=== PATIENT | female | born 1940 | race Caucasian/White ===

== ENCOUNTER 2020-02-17 10:39 | Outpatient (REF) | payer MEDICARE, SELFPAY ==
--- NOTE | 2020-02-17 10:56 | MM_ITS ---
EXAMINATION: MM SCREENING DIGITAL BREAST TOMOSYNTHESIS, BILATERAL CLINICAL INFORMATION: Screening. Asymptomatic. The lifetime risk of breast cancer based on the Tyrer-Cuzick Model is 1%. COMPARISON: Mammography: 02/11/2019, 12/19/2017, 12/09/2016 TECHNIQUE: Digital breast tomosynthesis is performed in both the craniocaudal and mediolateral oblique views along with computer-aided detection (CAD). Synthesized 2D images are generated from the tomosynthesis. FINDINGS: The breasts are heterogeneously dense, which may obscure small masses (ACR BI-RADS breast composition Category c). There are no significant masses, abnormal calcifications, or other abnormalities. The axilla and skin contours are unremarkable. No significant changes. MM/MM tomosynthesis screening BI IMPRESSION: No mammographic evidence of malignancy. ASSESSMENT: BI-RADS 1: Negative RECOMMENDATION: Routine annual mammography screening. This patient's information was entered into a reminder system with a target due date for their next mammogram.
== END 2020-02-17 10:40 | disposition home or self-care (01) ==
LOC: HO.MAMMO 10:39
PROVIDERS: PCP Internal Medicine; Visit Provider Internal Medicine
DX: Z12.31 Encounter for screening mammogram for malignant neoplasm of breast (principal)
CPT/HCPCS: 77063; 77067

== ENCOUNTER 2020-10-13 07:11 | Outpatient (REF) | payer MEDICARE, SELFPAY ==
[2020-10-13 11:34] LABS: MANUAL DIFF FLAG NO
[2020-10-13 11:49] LABS: Basophils Absolute Auto 0.1 X10*3/uL (0.0-0.2); Basophils Percent Auto 0.7 % (0-2); Eosinophils Absolute Auto 0.1 X10*3/uL (0.0-0.4); Eosinophils Percent Auto 1.2 % (0-4); Hematocrit 44.9 % (37-47); Hemoglobin 14.4 g/dl (12.0-16.0); Imm Gran Abs Auto 0.02 X10*3/uL (0.00-0.03); Imm Gran Pct Auto 0.3 % (0.0-0.4); Lymphocytes Absolute Auto 2.4 X10*3/uL (1.2-4.9); Lymphocytes Percent Auto 34.6 % (20-40); Mean Corpuscular HGB Conc 32.1 g/dl (31.0-35.0); Mean Corpuscular Hemoglobin 29.5 pg (27.0-33.0); Mean Platelet Volume 10.4 fL (9.4-12.3); Monocytes Absolute Auto 0.5 X10*3/uL (0.1-1.2); Monocytes Percent Auto 7.3 % (2-11); Neutrophils Absolute Auto 3.8 X10*3/uL (2.0-8.3); Neutrophils Percent Auto 55.9 % (45-73); Platelet Count 225 X10*3/uL (160-400); Red Blood Count 4.88 X10*6/uL (4.20-5.50); Red Cell Distribution Width 13.6 % (11.0-16.0); White Blood Count 6.9 X10*3/uL (4.8-10.8)
[2020-10-13 12:35] LABS: Thyroid Stimulating Hormone 2.88 uIU/mL (0.32-4.0); Vitamin D 25-OH Total 57.6 ng/mL (>30)
[2020-10-13 12:36] LABS: Alanine Aminotransferase 10 U/L (0-31); Albumin Level 4.1 g/dL (3.5-5.0); Alkaline Phosphatase 83 U/L (39-117); Anion Gap 13 (12-20); Aspartate Amino Transferase 18 U/L (5-31); Bilirubin Total 0.7 mg/dL (0.0-1.0); Blood Urea Nitrogen 15 mg/dL (9-16); Calcium 9.2 mg/dL (8.4-10.2); Carbon Dioxide 29 mmol/L (22-29); Chloride 107 mmol/L (96-108); Cholesterol 169 mg/dL; Estimated Glomerular Filt Rate > 60; Glucose Fasting 89 mg/dL (60-99); HDL Cholesterol 64 mg/dL; LDL Cholesterol Calculated 92 mg/dl; Potassium 3.7 mmol/L (3.3-5.1); Sodium 145 mmol/L (135-145); Total Protein 6.4 g/dL (6.5-8.0); Triglycerides 69 mg/dL
== END 2020-10-13 07:12 | disposition home or self-care (01) ==
LOC: HO.HMGCLDS 07:11
PROVIDERS: PCP Internal Medicine; Visit Provider Internal Medicine
DX: I10 Essential (primary) hypertension (principal); E78.00 Pure hypercholesterolemia, unspecified; R35.1 Nocturia; E55.9 Vitamin D deficiency, unspecified
CPT/HCPCS: 36415; 80053; 80061; 82306; 84443; 85025; 87086; 87088

== ENCOUNTER 2020-11-09 10:43 | Outpatient (REF) | payer MEDICARE, SELFPAY ==
--- NOTE | 2020-11-09 12:40 | MHC.AU.AEV ---
Adult Audiological Evaluation Date of Visit: 11/09/20 Reason for Appointment: Patient's family members have been raising concerns about her hearing. She finds that she asks for repetition more frequently than she used to. She feels she hears well if she is one-on-one in a quiet setting. She notices more difficulty if people are behind her, on the other side of the room, or if there is excessive noise in the background. Has hearing been tested previously?: No Hearing Handicap Inventory Does a hearing problem cause you to feel embarrassed when meeting new people?: No Does a hearing problem cause you to feel frustrated when talking to members of your family?: No Do you have difficulty when someone speaks in a whisper?: Yes Do you feel handicapped by a hearing problem?: No Does a hearing problem cause you difficulty when visiting friends, relatives, or neighbors?: No Does a hearing problem cause you to attend restorationist service services less often than you would like?: No Does a hearing problem cause you to have arguments with family members?: No Does a hearing problem cause you difficulty when listening to TV or radio?: No Do you feel that any difficult with your hearing limits or hampers your personal or social life?: No Does a hearing problem cause you difficulty when in a restaurants with relatives or friends?: No HHIE SCORE: 4 Based on HHIE score, patient has: No perceived hearing handicap Ear History: Ear Deformity: None Reported Recent Ear Drainage: None Reported Recent Ear Pain: None Reported Family History of Hearing Loss?: Yes Recent Ear Infections: None Reported Ear Infections in Childhood: None Reported History of Ear Wax Buildup: None Reported Previous Ear Surgery: None Reported Bothersome Tinnitus/Ringing/Noises in Ears: None Reported Ear used on the phone: Left Ear Blocked/Full Sensation in Ear(s): None Reported History of occupational noise exposure?: No History: No Medical History: Medical History: COPD, Hypertension, Tobacco Use Otoscopy: Right Ear: Unremarkable Left Ear: Unremarkable Tympanometry: Tympanometry performed due to: To assess integrity of the middle ear system Right Ear: Normal Middle Ear System (Type A) Left Ear: Normal Middle Ear System (Type A) Hearing Evaluation: Transducer(s) Used: Circumaural Headphones Method: Conventional Audiometry Stimuli Used: Pure Tones Right Ear: Description of Hearing: Normal from 250-1500 Hz, sloping to moderately-severe sensorineural hearing loss by 8000 Hz Left Ear: Description of Hearing: Normal from 250-1500 Hz, sloping to moderately-severe sensorineural hearing loss by 8000 Hz Speech Recognition Threshold (SRT): Method Used: Recorded Lists Stimuli Used: Spondee Words Right Ear: 20 dBHL Left Ear: 20 dBHL Word Discrimination: Method: Recorded Lists Word Lists Used:: W-22 Right Ear: 88% at 60 dBHL Left Ear: 92% at 60 dBHL Most Comfortable Level (MCL): Right Ear: 60 dBHL Left Ear: 60 dBHL Interpretation of Results: Patient presents with normal sloping to moderately-severe sensorineural hearing loss. In quiet, one-on-one settings, occasional misunderstandings may occur, but she is likely able to follow along in conversation without much difficulty. If the person talking was behind/out of line of sight or if there was noise in the background, the hearing difficulty may be more prominent. Sounds that may be more difficult to hear include /s/, /th/, /f/, and /k/. Recommendations: Audiological re-evaluation in one year. Hearing aids are not yet warranted. Patient feels she is able to hear well in most situations. To help support the patient's hearing: -Speak in a clear voice at a moderate pace. It is often more helpful to slow down the rate of speech rather than raising the volume of your voice. -Talk from a close distance and [id number] -Gain her full attention before talking -Minimize background noise whenever possible Diagnosis: Primary Diagnosis: H90.3 Bilateral Sensorineural Hearing Loss Signature: Provider: Louis Long, [facility]
== END 2020-11-09 10:44 | disposition home or self-care (01) ==
LOC: HO.SH 10:43
PROVIDERS: Visit Provider Internal Medicine
DX: H90.3 Sensorineural hearing loss, bilateral (principal)
CPT/HCPCS: 92557; 92567

== ENCOUNTER 2021-03-11 15:43 | Outpatient (REF) | payer MEDICARE, SELFPAY ==
--- NOTE | ~2021-03-11 | MM_ITS ---
EXAMINATION: MM SCREENING DIGITAL BREAST TOMOSYNTHESIS, BILATERAL CLINICAL INFORMATION: Screening. Asymptomatic. The lifetime risk of breast cancer based on the Tyrer-Cuzick Model is 1.1%. COMPARISON: Mammography: February 17, 2020 and studies dating back to November 25, 2013 TECHNIQUE: Digital breast tomosynthesis is performed in both the craniocaudal and mediolateral oblique views along with computer-aided detection (CAD). Synthesized 2D images are generated from the tomosynthesis. FINDINGS: The breasts are extremely dense, which lowers the sensitivity of mammography (ACR BI-RADS breast composition Category d). There are no significant masses, abnormal calcifications, or other abnormalities. MM/MM tomosynthesis screening BI IMPRESSION: There are no significant changes from prior study. ASSESSMENT: BI-RADS 1: Negative RECOMMENDATION: Routine annual mammography screening. This patient's information was entered into a reminder system with a target due date for their next mammogram.
== END 2021-03-11 15:44 | disposition home or self-care (01) ==
LOC: HO.MAMMO 15:43
PROVIDERS: PCP Internal Medicine; Visit Provider Internal Medicine
DX: Z12.31 Encounter for screening mammogram for malignant neoplasm of breast (principal)
CPT/HCPCS: 77063; 77067

== ENCOUNTER 2021-06-03 12:32 | Outpatient (REF) | payer MEDICARE, SELFPAY ==
--- NOTE | ~2021-06-03 | XR_ITS ---
EXAMINATION: XR THORACOLUMBAR SPINE CLINICAL INFORMATION: Exam done in error. COMPARISON: None TECHNIQUE: 2 views of the thoracic spine FINDINGS: There is no fracture or subluxation. Vertebral body height and alignment maintained. Disc spaces are maintained with small endplate osteophytes. The paravertebral soft tissues are unremarkable. Calcified granuloma at the left lung base. The visualized lungs are otherwise clear. Aortic calcifications. XR/XR thoracic spine 2V IMPRESSION: Mild degenerative change of the thoracic spine.
--- NOTE | ~2021-06-03 | CT_ITS ---
EXAMINATION: CT ABDOMEN AND PELVIS WITH CONTRAST CLINICAL INFORMATION: Left lower quadrant pain. COMPARISON: CT abdomen and pelvis 11/29/2016. TECHNIQUE: Multidetector volumetric images were obtained from the superior aspect of the liver through the pubic symphysis following administration 85 mL of Omnipaque 350 intravenous contrast. Sagittal and coronal reformatted images were obtained on the technologist's workstation. Oral contrast: No This CT examination was performed using dose optimization techniques as appropriate, variously including the following: *Automated exposure control *Adjustment of mA and/or kV according to patient size (this includes techniques or standardized protocols for targeted exams where dose is matched to indication/reason for exam; i.e. extremities or head) *Use of iterative reconstruction technique DLP: 174 mGy-cm FINDINGS: LUNG BASES: The heart size is normal. There are minimal linear atelectatic changes in the lingula and right middle lobe. LIVER, GALLBLADDER, AND BILIARY TREE: The liver is normal in size, shape, and attenuation. No focal hepatic lesion or biliary ductal dilatation is present. The gallbladder is unremarkable with no evidence of radiopaque gallstones, gallbladder wall thickening, or obvious pericholecystic inflammatory changes. PANCREAS: Unremarkable. SPLEEN: The spleen is normal size and density. There is punctate calcification medially. ADRENAL GLANDS: Unremarkable. KIDNEYS AND URETERS: The kidneys are normal in size, shape, and attenuation. No hydronephrosis, hydroureter, or calculi are seen. No perinephric stranding. BLADDER: Unremarkable. GASTROINTESTINAL TRACT: There is scattered stool and gas seen throughout the colon consistent with mild constipation. No obstruction. The small bowel loops are normal caliber. A few scattered diverticula are seen in the sigmoid colon in the pelvis. There is no free air or free fluid. ABDOMINAL WALL: The abdominal wall appears unremarkable. LYMPH NODES: No abnormal-sized retroperitoneal or pelvic lymph nodes are seen. VASCULAR: There is atherosclerotic calcification of the abdominal aorta without aneurysmal dilatation. PELVIC VISCERA: There is no free air or free fluid seen. OSSEOUS STRUCTURES: No lytic or sclerotic process is seen. 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 No lytic or sclerotic process is seen. CT/CT abdomen pelvis w con IMPRESSION: No acute intra-abdominal process seen. Sigmoid colon diverticulosis without diverticulitis. Mild constipation. Fleischner guidelines were followed.
[2021-06-03] MEDS: iohexoL 350 MG/ML 100 ML INFUS..BTL IV (15:40)
[2021-06-03] MEDS: Barium Sulfate Oral (Vanilla) 450 ML ORAL.SUSP 900 ML PO (15:40)
== END 2021-06-03 12:33 | disposition home or self-care (01) ==
LOC: HO.CT 12:32
PROVIDERS: PCP Internal Medicine; Visit Provider Internal Medicine
DX: R10.32 Left lower quadrant pain (principal)
CPT/HCPCS: 72070; 74177; Q9967

== ENCOUNTER → 2021-08-26 15:27 | Outpatient (BNVA) | payer MEDICARE, SELFPAY | PROVIDERS: PCP Internal Medicine; Referring Provider Internal Medicine; Visit Provider Nurse Practitioner Family | DX: R19.5 Other fecal abnormalities (principal); K58.2 Mixed irritable bowel syndrome; R14.0 Abdominal distension (gaseous) | CPT/HCPCS: 99202 ==

== ENCOUNTER 2021-11-30 10:16 | Outpatient (REF) | payer MEDICARE, SELFPAY ==
[2021-11-30 12:39] LABS: C Reactive Protein 0.13 mg/dL (< or = 0.50); Lipase 17 U/L (8-78)
[2021-11-30 13:27] LABS: Folate > 20.0 ng/mL (> or = 4.0); Vitamin B12 696 pg/mL (200-900)
[2021-12-01 15:02] LABS: Immunoglobulin A 197 mg/dL (70-320)
[2021-12-01 15:06] LABS: Transglutaminase Ab IgG <1.0 U/mL; Transglutaminase IgA <1.0 U/mL
[2021-12-05 15:51] LABS: Vitamin D 25-OH, D2 <4 ng/mL; Vitamin D 25-OH, D3 51 ng/mL; Vitamin D 25-OH, Total 51 ng/mL (30-100)
== END 2021-11-30 10:17 | disposition home or self-care (01) ==
LOC: HO.LAB 10:16
PROVIDERS: PCP Internal Medicine; Visit Provider Nurse Practitioner Family
DX: R10.9 Unspecified abdominal pain (principal); K58.2 Mixed irritable bowel syndrome; R19.7 Diarrhea, unspecified; R14.0 Abdominal distension (gaseous); E55.9 Vitamin D deficiency, unspecified
CPT/HCPCS: 36415; 82306; 82607; 82746; 82784; 83690; 86140; 86364; 99212

== ENCOUNTER 2021-12-02 10:18 | Outpatient (REF) | payer MEDICARE, SELFPAY ==
[2021-12-11 16:51] LABS: Pancreatic Elastase-1 >500 mcg/g
== END 2021-12-02 10:19 | disposition home or self-care (01) ==
LOC: HO.LNP 10:18
PROVIDERS: Visit Provider Nurse Practitioner Family
DX: R10.9 Unspecified abdominal pain (principal)
CPT/HCPCS: 82656

== ENCOUNTER 2021-12-22 07:57 | Outpatient (REF) | payer MEDICARE, SELFPAY ==
[2021-12-22 11:11] LABS: MANUAL DIFF FLAG NO
[2021-12-22 11:39] LABS: Basophils Absolute Auto 0.1 X10*3/uL (0.0-0.2); Basophils Percent Auto 0.9 % (0-2); Eosinophils Absolute Auto 0.1 X10*3/uL (0.0-0.4); Eosinophils Percent Auto 1.3 % (0-4); Hematocrit 48.6 % (37.0-47.0); Hemoglobin 15.5 g/dl (12.0-16.0); Imm Gran Abs Auto 0.02 X10*3/uL (0.00-0.03); Imm Gran Pct Auto 0.3 % (0.0-0.4); Lymphocytes Absolute Auto 1.8 X10*3/uL (1.2-4.9); Lymphocytes Percent Auto 26.8 % (20-40); Mean Corpuscular HGB Conc 31.9 g/dl (31.0-35.0); Mean Corpuscular Hemoglobin 29.7 pg (27.0-33.0); Mean Corpuscular Volume 93.1 fL (80.0-98.0); Mean Platelet Volume 10.6 fL (9.4-12.3); Monocytes Absolute Auto 0.6 X10*3/uL (0.1-1.2); Monocytes Percent Auto 8.1 % (2-11); Neutrophils Absolute Auto 4.2 x10*3/uL (2.0-8.3); Neutrophils Percent Auto 62.6 % (45-73); Platelet Count 262 X10*3/uL (160-400); Red Blood Count 5.22 X10*6/uL (4.20-5.50); Red Cell Distribution Width 13.4 % (11.0-16.0); White Blood Count 6.8 X10*3/uL (4.8-10.8)
[2021-12-22 12:02] LABS: Alanine Aminotransferase 9 U/L (0-31); Albumin Level 4.2 g/dL (3.5-5.0); Alkaline Phosphatase 81 U/L (39-117); Anion Gap 11 (12-20); Aspartate Amino Transferase 16 U/L (5-31); Bilirubin Total 0.7 mg/dL (0.0-1.0); Blood Urea Nitrogen 10 mg/dL (9-16); Calcium 9.2 mg/dL (8.4-10.2); Carbon Dioxide 31 mmol/L (22-29); Chloride 105 mmol/L (96-108); Estimated Glomerular Filt Rate > 60; Glucose Random 101 mg/dL (60-115); Potassium 4.2 mmol/L (3.3-5.1); Sodium 143 mmol/L (135-145); Total Protein 6.6 g/dL (6.5-8.0)
== END 2021-12-22 07:58 | disposition home or self-care (01) ==
LOC: HO.HMGCLDS 07:57
PROVIDERS: PCP Internal Medicine; Visit Provider Internal Medicine
DX: M19.041 Primary osteoarthritis, right hand (principal); M19.042 Primary osteoarthritis, left hand; I10 Essential (primary) hypertension
CPT/HCPCS: 36415; 80053; 84443; 85025

== ENCOUNTER 2022-01-05 13:04 | Outpatient (REF) | payer MEDICARE, SELFPAY ==
--- NOTE | ~2022-01-05 | US_ITS ---
EXAMINATION: US EXTRACRANIAL CAROTID DUPLEX, BILATERAL CLINICAL INFORMATION: TIA COMPARISON: None TECHNIQUE: Real-time ultrasound and Doppler techniques (integrating B-mode 2-D vascular images, Doppler spectral analysis and color-flow Doppler imaging) were utilized to interrogate the extracranial carotid arteries, the vertebral arteries and proximal subclavian arteries bilaterally. The degree of stenosis is determined by criteria similar to NASCET. FINDINGS: Right Side: 1. There is mild atherosclerotic plaque seen in the bifurcation/proximal ICA region. 2. The common carotid artery PSV proximally is 74 cm/s and distally 79 cm/s. 3. The proximal internal carotid artery velocities are 70 cm/s systolic and 13 cm/s diastolic. 4. The proximal external carotid artery PSV is 71 cm/s. 5. The vertebral artery shows antegrade flow. 6. The subclavian artery waveforms are normal. Left Side: 1. There is no significant atherosclerotic plaque seen in the bifurcation/proximal ICA region. 2. The common carotid artery PSV proximally is 91 cm/s and distally 72 cm/s. 3. The proximal internal carotid artery velocities are 60 cm/s systolic and 9 cm/s diastolic. 4. The proximal external carotid artery PSV is 74 cm/s. 5. The vertebral artery shows antegrade flow. 6. The subclavian artery waveforms are normal. US/US carotid duplex BI IMPRESSION: 1. RIGHT: Minimal, non-hemodynamically significant stenosis of the proximal right internal carotid artery corresponding to a 0-49% stenosis by velocity criteria. 2. LEFT: Normal left internal carotid artery without atherosclerotic plaque or hemodynamically significant stenosis.
== END 2022-01-05 13:05 | disposition home or self-care (01) ==
LOC: HO.US 13:04
PROVIDERS: Visit Provider Internal Medicine
DX: G45.9 Transient cerebral ischemic attack, unspecified (principal)
CPT/HCPCS: 93880

== ENCOUNTER 2022-01-16 20:08 | Emergency (ER) | payer MEDICARE, SELFPAY ==
--- NOTE | ~2022-01-16 | CT_ITS ---
EXAMINATION: CT ABDOMEN AND PELVIS WITH CONTRAST CLINICAL INFORMATION: Diffuse severe abdominal pain, question diverticulitis COMPARISON: 06/03/2021 TECHNIQUE: Multidetector volumetric images were obtained from the superior aspect of the liver through the pubic symphysis following administration 85 mL of Omnipaque 350 intravenous contrast. Sagittal and coronal reformatted images were obtained on the technologist's workstation. Oral contrast: No This CT examination was performed using dose optimization techniques as appropriate, variously including the following: *Automated exposure control *Adjustment of mA and/or kV according to patient size (this includes techniques or standardized protocols for targeted exams where dose is matched to indication/reason for exam; i.e. extremities or head) *Use of iterative reconstruction technique DLP: 280 mGy-cm FINDINGS: LUNG BASES: There is suggestion of mild bronchiolitis in the anterior right lower lobe. LIVER, GALLBLADDER, AND BILIARY TREE: The liver is normal in size, shape, and attenuation. No focal hepatic lesion or significant biliary ductal dilatation is present. The gallbladder is unremarkable. PANCREAS: Unremarkable. SPLEEN: Few calcified granulomas noted. ADRENAL GLANDS: Unremarkable. KIDNEYS AND URETERS: The kidneys are normal in size, shape, and attenuation. No hydronephrosis, hydroureter, or calculi seen. No perinephric stranding. A few subcentimeter hyperattenuating foci bilaterally are too small to characterize, statistically favoring cysts for which no follow-up is recommended. BLADDER: Unremarkable. GASTROINTESTINAL TRACT: No evidence of bowel obstruction. Colonic diverticulosis is present without convincing diverticulitis, though evaluation in the sigmoid colon. The pelvis is suboptimal due to incomplete distention. No significant bowel wall thickening is seen. Appendix is not clearly delineated. Small amount of free fluid is present in the pelvis. No free air is seen. ABDOMINAL WALL: No significant hernia is appreciated. LYMPH NODES: Normal. VASCULAR: There is atherosclerotic calcification along the aorta and iliac arteries. PELVIC VISCERA: Status post hysterectomy. OSSEOUS STRUCTURES: Degenerative changes are noted in the spine. CT/CT abdomen pelvis w IV con IMPRESSION: 1. Small amount of free fluid in the pelvis, of uncertain etiology. Colonic diverticulosis without convincing diverticulitis, though assessment of the sigmoid colon is suboptimal due to incomplete distention. 2. Suggestion of mild bronchiolitis in the anterior right lower lobe.
[2022-01-16 20:18] VITALS: BP 170/100; PULSE 81; O2SAT 97
[2022-01-16 20:25] VITALS: BP 185/87; PULSE 78; RESP 18; TEMP 36.6; O2SAT 96; BMI 18.8
[2022-01-16 21:02] LABS: Appearance Urine Clear; Color Urine Yellow; Glucose Urine UA Negative (Negative); Leukocyte Esterase Urine Moderate (2+) (Negative); Nitrite Urine Negative (Negative); PH 5.5 (5.0-9.0); UMIC TRIGGER UACC YES; Urine Blood Moderate (2+) (Negative); Urine Ketones Trace mg/dL (Negative); Urine Protein Negative (Neg-Trace)
[2022-01-16 21:08] LABS: Bacteria Urine None Seen (None Seen); Hyaline Casts Urine 0-2 /LPF (0-2); Squamous Epithelial Cell Urine 0-2 /HPF (0-2); UACC Culture Trigger YES; WBC Urine 21-50 /HPF (0-5)
[2022-01-16 21:11] LABS: MANUAL DIFF FLAG NO
[2022-01-16 21:17] LABS: Basophils Percent Auto 0.4 % (0-2); Eosinophils Percent Auto 0.5 % (0-4); Hematocrit 41.5 % (37.0-47.0); Hemoglobin 13.9 g/dl (12.0-16.0); Imm Gran Abs Auto 0.02 X10*3/uL (0.00-0.03); Imm Gran Pct Auto 0.2 % (0.0-0.4); Lymphocytes Absolute Auto 1.5 X10*3/uL (1.2-4.9); Lymphocytes Percent Auto 17.4 % (20-40); Mean Corpuscular HGB Conc 33.5 g/dl (31.0-35.0); Mean Corpuscular Hemoglobin 29.8 pg (27.0-33.0); Mean Corpuscular Volume 88.9 fL (80.0-98.0); Mean Platelet Volume 9.9 fL (9.4-12.3); Monocytes Absolute Auto 0.6 X10*3/uL (0.1-1.2); Monocytes Percent Auto 6.7 % (2-11); Neutrophils Absolute Auto 6.4 x10*3/uL (2.0-8.3); Neutrophils Percent Auto 74.8 % (45-73); Platelet Count 234 X10*3/uL (160-400); Red Blood Count 4.67 X10*6/uL (4.20-5.50); Red Cell Distribution Width 13.2 % (11.0-16.0); White Blood Count 8.6 X10*3/uL (4.8-10.8)
--- NOTE | 2022-01-16 21:19 | ED_ITS ---
HPI - Abdominal Pain General Chief Complaint: Abdominal Pain Stated Complaint: Abd Pain Time Seen by Provider: 01/16/22 20:22 Source: patient and EMS Mode of arrival: EMS Limitations: no limitations History of Present Illness HPI narrative: To 81-year-old female history of vertigo presenting to the emergency department via ambulance for complaints of sudden onset abdominal pain that started after eating. Patient tells me she was eating and suddenly started experiencing a burning sensation throughout her entire abdomen followed by crampy sensation, she tells me this is never happened to her before. She tells me when it 1st started it was a 10/10 however now it is a 5/10 and described as a crampy abdominal pain. Patient denies fevers, chills, nausea, vomiting, headache, vision changes, dizziness, chest pain, shortness of breath, changes in urination, changes in bowel habits. Patient tells me she has no history of diverticulitis however she has been told he has diverticulosis. Related Data Home Medications Medication Instructions Recorded Confirmed aspirin 81 mg tablet,delayed 81 mg PO DAILY 05/22/20 release (Adult Low Dose Aspirin) cholecalciferol (vitamin D3) 25 25 mcg PO DAILY 05/22/20 mcg (1,000 unit) capsule garlic 300 mg PO DAILY 05/22/20 ipratropium 20 mcg-albuterol 100 1 puff inhalation QID 05/22/20 mcg/actuation mist for inhalation metoprolol succinate 25 mg 25 mg PO DAILY 05/22/20 tablet,extended release 24 hr rosuvastatin 20 mg tablet 20 mg PO BEDTIME 05/22/20 Previous Rx's Medication Instructions Recorded lactobacillus combination no.4 3 3,000 mmu cells PO DAILY #30 caps 08/26/21 billion cell capsule (Probiotic) methylcellulose (laxative) 500 mg 500 mg PO DAILY #90 tabs 08/26/21 tablet (Citrucel) bisacodyl 5 mg tablet,delayed 10 mg PO ONCE 1 day #2 tabs 11/30/21 release (Dulcolax (bisacodyl)) docusate sodium 100 mg capsule 100 mg PO BEDTIME #90 caps 11/30/21 polyethylene glycol 3350 17 238 g PO ONCE #238 grams 11/30/21 gram/dose oral powder (Miralax) aluminum-mag hydroxide-simethicone 5 ml PO 5XD PRN dyspepsia #355 mL 01/16/22 200 mg-200 mg-20 mg/5 mL oral susp (Maalox Advanced) Allergies Allergy/AdvReac Type Severity Reaction Status Date / Time amoxicillin [AMOXICILLIN] Allergy Intermediate ITCHY Verified 11/30/21 09:23 EYES/RASH codeine [CODEINE] Allergy Unknown RASH Verified 11/30/21 09:23 codeine Allergy Unknown rash Uncoded 01/13/15 00:00 zocor Allergy Unknown muscle pain Uncoded 01/13/15 00:00 Review of Systems Review of Systems Constitutional : No Weight loss, No Fever, No Chills, No Fatigue, No Malaise ENT/Mouth : No sore throat, No Rhinorrhea Eyes: No Eye Pain, No Swelling, No Redness Cardiovascular : No Chest Pain, No SOB, No Dyspnea on Exertion, No Orthopnea, No Edema, No Palpitations Respiratory : No Cough, No Sputum, No Wheezing Gastrointestinal : No Nausea, No Vomiting, No Diarrhea, No Constipation, + abdominal Pain, No Hematochezia, No Melena Genitourinary : No Dysuria, No Urinary Frequency, No Hematuria, Musculoskeletal : No joint pain, No Myalgias, No Joint Swelling Skin : No Skin Lesions, No rash Neuro : No Weakness, No Numbness, No Dizziness, No Headache Psych : No Anxiety/Panic, No Depression All other systems reviewed and are negative Yes all other systems are reviewed and are negative [facility] Past Medical History Attestation statement: The following information was validated with the patient. Source: old records reviewed and nursing notes reviewed Medical History COPD (chronic obstructive pulmonary disease) HTN (hypertension) Hypercholesteremia Positive FIT (fecal immunochemical test) Family History Family History Daughter Parkinson disease Breast cancer Brother Lung cancer Daughter Heart disease Social History Social History Household Members: Family Alcohol intake: never Patient Tobacco Use Status: Current everyday Tobacco user Advance Directives: No Advance Directives Information Provided: Yes Physical Exam ED Vital Signs: Vital Signs - 24 hr 01/16/22 20:25 01/16/22 22:21 Temperature 97.9 F 98.3 F Pulse Rate 78 75 Respiratory Rate 18 15 Blood Pressure 185/87 H 155/69 H Pulse Oximetry 96 97 Oxygen Delivery Method Room Air Room Air BMI result Body Mass Index 18.8 vss Appearance: Alert.? Oriented X3.? No acute distress.? Nontoxic appearing Head: Normocephalic, atraumatic, no step-offs or deformities Eyes: Pupils equal, round and reactive to light.? CVS: Normal heart rate and rhythm.? Pulses normal.? Respiratory: No respiratory distress.? Breath sounds normal.? Abdomen: Soft and diffusely tender abdomen.? Skin: Skin warm and dry.? Normal skin color.? Normal skin turgor.? Extremities: No lower extremity edema.? No calf ttp. 5/5 strength to bilateral upper and lower extremities Back: no CVA tenderness bilaterally Neuro: Oriented X 3.? No motor deficit.? No sensory deficit. CN 2-12 intact Course Reevaluation(s) Reevaluation #1: Re-evaluated patient she tells me she is feeling much better. Her pain is now down to a family member who is at the bedside tells me that her pain is likely secondary to eating greasy pizza from. In short, patient reports she typically does not eat food like this. On repeat examination patient no longer tender to palpation of abdomen. She tells me she feels like a new person. Tells me that this is never happened to her before however she is almost back to normal. CBC appears to be within normal limits. Chemistry with no acute findings requiring intervention. Patient's lipase within normal limits, unlikely pancreatitis. UA clean, I suspect positive leukocytes are secondary to contamination , also patient does not have urinary symptoms. CT of the abdomen and pelvis with small amount of free fluid in the pelvis of uncertain etiology. Colonic diverticulosis without convincing diverticulitis. Assessment of sigmoid colon is suboptimal however on re-evaluation no tenderness to palpation to left lower quadrant patient feels significantly better after GI cocktail. Likely GERD. Patient tells me that she has a history of hysterectomy with oophorectomy, will have her follow-up with OBGYN for small amount of free fluid in the pelvis, I do not suspect emergent etiologies for this. Patient appears well no acute distress. Did p.o. challenge, patient tolerating p.o.. Requesting to go home. At this time patient will go home, hemodynamically stable. Time: 22:33 Medical Decision Making Medical Decision Making [facility] Narrative: 2100 81-year-old female presenting to the emergency department with sudden onset diffuse abdominal pain described as burning and crampy in nature after eating. Initially was a 11/15 however now 06/15. Patient appears nontoxic. History of diverticulosis Physical exam with diffusely tender abdomen, normoactive bowel sounds throughout Likely diverticulitis or viral infection. Unlikely acute abdomen, appendicitis, cholecystitis, pancreatitis, UTI or cystitis. Low suspicion for small-bowel obstruction, large-bowel obstruction, AAA or peritonitis Plan labs, imaging, flu/COVID/RSV. Will give her GI cocktail. Medications Administered Discontinued Medications Generic Name Dose Route Start Last Admin Trade Name Freq PRN Reason Stop Dose Admin Al Hydroxide/Mg Hydroxide 30 ml 01/16/22 21:20 01/16/22 21:33 Magnesium Hydrox/Alum Hydrox 30 Ml Oral.Susp PO 01/16/22 21:21 30 ml ONCE ONE Administration Belladonna Alkaloids/Phenobarbital 10 ml 01/16/22 21:20 01/16/22 21:33 Phenobarb/Hyoscy/Atropine/Scop 10 Ml Elixir PO 01/16/22 21:21 10 ml ONCE ONE Administration Iohexol 100 ml 01/16/22 21:57 01/16/22 22:02 Iohexol 350 Mg/Ml 100 Ml Infus..Btl IV 01/16/22 21:58 85 ml ONCE ONE Administration Simethicone 160 mg 01/16/22 21:22 01/16/22 21:32 Simethicone 80 Mg Tab.Chew PO 01/16/22 21:23 160 mg ONCE ONE Administration Critical Care Time Critical Care Time Critical Care Time: No Discharge Plan Discharge Clinical Impression: Abdominal pain, Gastroesophageal reflux disease Patient Disposition: Home, Self-Care Instructions: Gastroesophageal Reflux Disease (ED), Abdominal Pain (ED) Additional Instructions: Take your medications as prescribed. If you were prescribed antibiotics today, it is important that you take your medication to their entirety, do not skip any doses, do not finish them early. Follow-up with your primary care provider this week. Follow-up with gastroenterology. Return to the emergency department with new or worsening symptoms. Such as fevers, chills, chest pain, shortness of breath, nausea, vomiting, dizziness, headache, vision changes, lethargy In case of emergency call 911 Please avoid fatty, greasy, spicy foods. Your CT scan showed the following results: CT/CT abdomen pelvis w IV con IMPRESSION: 1.? Small amount of free fluid in the pelvis, of uncertain etiology. Colonic diverticulosis without convincing diverticulitis, though assessment of the sigmoid colon is suboptimal due to incomplete distention. 2.? Suggestion of mild bronchiolitis in the anterior right lower lobe. If quality of pain or location of pain changes or pain worsens it is important that you come back for emergent intervention. Please follow-up with OBGYN in regards to these small amount of free fluid in the pelvis Prescriptions: New alum-mag hydroxide-simeth [Maalox Advanced] 200-200-20 mg/5 mL suspension 5 ml PO 5XD PRN (Reason: dyspepsia) Qty: 355 0RF Rx Instructions: administer between meals and at bedtime No Action metoprolol succinate 25 mg tablet extended release 24 hr 25 mg PO DAILY rosuvastatin 20 mg tablet 20 mg PO BEDTIME Combivent Respimat 20-100 mcg/actuation mist 1 puff inhalation QID cholecalciferol (vitamin D3) 25 mcg (1,000 unit) capsule 25 mcg PO DAILY garlic Tablet 300 mg PO DAILY aspirin [Adult Low Dose Aspirin] 81 mg tablet,delayed release (DR/EC) 81 mg PO DAILY Citrucel 500 mg tablet 500 mg PO DAILY Qty: 90 2RF Rx Instructions: take it with full glass of water Probiotic 3 billion cell capsule 3,000 mmu cells PO DAILY Qty: 30 5RF Rx Instructions: administer with a meal bisacodyl [Dulcolax (bisacodyl)] 5 mg tablet,delayed release (DR/EC) 10 mg PO ONCE 1 Days Qty: 2 0RF Rx Instructions: take 2 tabs at noon the day before your colonoscopy polyethylene glycol 3350 [Miralax] 17 gram/dose powder 238 g PO ONCE Qty: 238 0RF Rx Instructions: As directed by gastroenterology department at [facility] docusate sodium 100 mg capsule 100 mg PO BEDTIME Qty: 90 3RF Referrals: [facility] [Provider Group] - 1 week Nino Jackson MD [Primary Care Provider] - 2 days Stand Alone Forms: Work/School Release
[2022-01-16] MEDS: Simethicone 80 MG TAB.CHEW 160 MG PO (21:32)
[2022-01-16] MEDS: Magnesium Hydrox/Alum Hydrox 30 ML ORAL.SUSP PO (21:33)
[2022-01-16] MEDS: PHENobarb/Hyoscy/Atropine/Scop 10 ML ELIXIR PO (21:33)
[2022-01-16 21:34] LABS: Alanine Aminotransferase 11 U/L (0-31); Albumin Level 3.9 g/dL (3.5-5.0); Alkaline Phosphatase 80 U/L (39-117); Anion Gap 15 (12-20); Aspartate Amino Transferase 20 U/L (5-31); Blood Urea Nitrogen 16 mg/dL (9-16); Calcium 9.2 mg/dL (8.4-10.2); Carbon Dioxide 27 mmol/L (22-29); Chloride 104 mmol/L (96-108); Creatinine Clr Calc Pharmacy 44.8; Estimated Glomerular Filt Rate > 60; Glucose Random 163 mg/dL (60-115); Lipase 32 U/L (8-78); Magnesium 2.2 mg/dL (1.6-2.6); Potassium 4.3 mmol/L (3.3-5.1); Sodium 142 mmol/L (135-145); Total Protein 6.6 g/dL (6.5-8.0)
[2022-01-16] MEDS: iohexoL 350 MG/ML 100 ML INFUS..BTL IV (22:02)
[2022-01-16 22:21] VITALS: BP 155/69; PULSE 75; RESP 15; TEMP 36.8; O2SAT 97
[2022-01-16 23:06] LABS: Influenza A PCR NEGATIVE (Negative); Influenza B PCR NEGATIVE (Negative); Resp Syncy Virus RNA Qual PCR NEGATIVE (Negative); SARS COV2 PCR INHOUSE NEGATIVE (Negative)
[2022-01-16 23:08] LABS: Bilirubin Total 0.3 mg/dL (0.0-1.0)
--- NOTE | 2022-01-16 23:19 | PC.NURSE ---
Patient is alert and oriented x3. Patient denies any pain at present. Patient tolerated humberto hosea and crackers well, no c/o nausea/vomiting/abdominal pain. Patient used a restroom. She had a small BM. She ambulates independently with a slow, but steady gait.
== END 2022-01-16 23:32 | disposition home or self-care (01) ==
PROVIDERS: Physician Assistant; Emergency Provider Internal Medicine; PCP Internal Medicine
DX: K21.9 Gastro-esophageal reflux disease without esophagitis (principal); Z20.822 Contact with and (suspected) exposure to COVID-19; Z79.899 Other long term (current) drug therapy
CPT/HCPCS: 0241U; 36415; 74177; 80053; 81001; 81003; 83690; 83735; 85025; 87086; 99284; Q9967

== ENCOUNTER 2022-03-15 10:14 | Outpatient (REF) | payer MEDICARE, SELFPAY ==
--- NOTE | ~2022-03-15 | MM_ITS ---
EXAMINATION: MM SCREENING DIGITAL BREAST TOMOSYNTHESIS, BILATERAL CLINICAL INFORMATION: Screening. Asymptomatic. The lifetime risk of breast cancer based on the Tyrer-Cuzick Model is 1.0%. COMPARISON: Mammography: March 11, 2021 and studies dating back to November 30, 2015 TECHNIQUE: Digital breast tomosynthesis is performed in both the craniocaudal and mediolateral oblique views along with computer-aided detection (CAD). Synthesized 2D images are generated from the tomosynthesis. FINDINGS: The breasts are extremely dense, which lowers the sensitivity of mammography (ACR BI-RADS breast composition Category d). There are no significant masses, abnormal calcifications, or other abnormalities. MM/MM tomosynthesis screening BI IMPRESSION: No significant changes from prior exam. ASSESSMENT: BI-RADS 1: Negative RECOMMENDATION: Routine annual mammography screening. This patient's information was entered into a reminder system with a target due date for their next mammogram.
== END 2022-03-15 10:15 | disposition home or self-care (01) ==
LOC: HO.MAMMO 10:14
PROVIDERS: PCP Internal Medicine; Visit Provider Internal Medicine
DX: Z12.31 Encounter for screening mammogram for malignant neoplasm of breast (principal)
CPT/HCPCS: 77063; 77067

== ENCOUNTER 2022-05-06 07:17 | Outpatient (REF) | payer MEDICARE, SELFPAY ==
[2022-05-06 12:43] LABS: Cholesterol 177 mg/dL; HDL Cholesterol 66 mg/dL; LDL Cholesterol Calculated 97 mg/dl; Triglycerides 71 mg/dL
== END 2022-05-06 07:18 | disposition home or self-care (01) ==
LOC: HO.HMGCLDS 07:17
PROVIDERS: PCP Internal Medicine; Visit Provider Internal Medicine
DX: E78.00 Pure hypercholesterolemia, unspecified (principal)
CPT/HCPCS: 36415; 80061

== ENCOUNTER 2022-05-21 13:10 | Emergency (ER) | payer MEDICARE, SELFPAY ==
--- NOTE | ~2022-05-21 | US_ITS ---
CLINICAL INDICATION: Left lower extremity pain and decreased pulses. FINDINGS: Real-time duplex on the examination of the left lower extremity arterial system was performed from the level of the common femoral artery to the posterior tibial artery. Left lower extremity peak systolic velocities (cm/s): Common femoral artery: 128 Profunda femoral artery: 104 Proximal superficial femoral artery: 92 Mid superficial femoral artery: 102 Distal superficial femoral artery: 129 Popliteal artery: 67 Posterior tibial artery: 99 Grayscale and color Doppler imaging of the left lower extremity demonstrates mild plaque within the left common femoral artery. Triphasic flow throughout. US/US arterial duplex LE IMPRESSION: No evidence of hemodynamically significant infrainguinal stenosis.
--- NOTE | ~2022-05-21 | US_ITS ---
EXAMINATION: US VENOUS ULTRASOUND WITH DOPPLER LOWER EXTREMITY, LEFT CLINICAL INFORMATION: Left lower extremity pain and swelling. COMPARISON: None available. TECHNIQUE: Ultrasound of the deep veins is performed from the hip to the calf with compression sonography and color and pulse Doppler assessment. Spectral analysis with color-flow imaging is performed. FINDINGS: There is normal venous compression and respiratory variation and augmented flow. The visualized common femoral vein, superficial femoral vein, profunda femoral vein, popliteal vein, and the trifurcation region shows no evidence of deep venous thrombosis. No Cid's cyst is seen. US/US venous duplex LE LT IMPRESSION: No DVT demonstrated in the left lower extremity.
[2022-05-21 13:13] VITALS: BP 119/77; PULSE 65; RESP 18; TEMP 36.6; O2SAT 98; BMI 17.3
--- NOTE | 2022-05-21 13:14 | ED_ITS ---
HPI - Extremity Injury (Lower) General Chief Complaint: Extremity Problem <JEWEL Moran - Last Filed: 05/21/22 13:15> Stated Complaint: L knee pain <JEWEL Moran - Last Filed: 05/21/22 13:15> Time Seen by Provider: 05/21/22 13:47 <JEWEL Moran - Last Filed: 05/21/22 13:15> Source: patient and old records reviewed <JEWEL Moraes - Last Filed: 05/21/22 18:32> History of Present Illness HPI Narrative: 81-year-old female with past medical history of asthma, COPD, HTN, HLD, presenting to the ED complaining of sudden onset left lower leg pain since this morning. Patient reports woke up feeling okay then developed pain. Reports associated nausea secondary to pain. Denies known injury/trauma or fall, numbness/tingling, recent travel, fever, CP/SOB. Takes baby ASA. <JEWEL Moraes - Last Filed: 05/21/22 18:32> MD complaint: other <JEWEL Moraes - Last Filed: 05/21/22 18:32> Onset (ago): hour(s) <JEWEL Moraes - Last Filed: 05/21/22 18:32> Related Data Home Medications: Home Medications Medication Instructions Recorded Confirmed aspirin 81 mg tablet,delayed 81 mg PO DAILY 05/22/20 04/07/22 release (Adult Low Dose Aspirin) cholecalciferol (vitamin D3) 25 25 mcg PO DAILY 05/22/20 04/07/22 mcg (1,000 unit) capsule garlic 300 mg PO DAILY 05/22/20 04/07/22 ipratropium 20 mcg-albuterol 100 1 puff inhalation QID 05/22/20 04/07/22 mcg/actuation mist for inhalation metoprolol succinate 25 mg 25 mg PO DAILY 05/22/20 04/07/22 tablet,extended release 24 hr rosuvastatin 20 mg tablet 20 mg PO BEDTIME 05/22/20 04/07/22 Previous Rx's Medication Instructions Recorded lactobacillus combination no.4 3 3,000 mmu cells PO DAILY #30 caps 08/26/21 billion cell capsule (Probiotic) methylcellulose (laxative) 500 mg 500 mg PO DAILY #90 tabs 08/26/21 tablet (Citrucel) bisacodyl 5 mg tablet,delayed 10 mg PO ONCE 1 day #2 tabs 11/30/21 release (Dulcolax (bisacodyl)) docusate sodium 100 mg capsule 100 mg PO BEDTIME #90 caps 11/30/21 polyethylene glycol 3350 17 238 g PO ONCE #238 grams 11/30/21 gram/dose oral powder (Miralax) aluminum-mag hydroxide-simethicone 5 ml PO 5XD PRN dyspepsia #355 mL 01/16/22 200 mg-200 mg-20 mg/5 mL oral susp (Maalox Advanced) <JEWEL Moran Last Filed: 05/21/22 13:15> Allergies/Adverse Reactions: Allergies Allergy/AdvReac Type Severity Reaction Status Date / Time amoxicillin [AMOXICILLIN] Allergy Intermediate ITCHY Verified 05/21/22 13:16 EYES/RASH codeine [CODEINE] Allergy Unknown RASH Verified 05/21/22 13:16 zocor Allergy Unknown muscle pain Uncoded 04/07/22 11:04 <JEWEL Moran Last Filed: 05/21/22 13:15> Review of Systems Review of Systems: Constitutional: No Fever, No Chills ENT/Mouth: No Ear Pain, No Nasal Congestion, No sore throat, No Rhinorrhea, No Swallowing Difficulty Cardiovascular: No Chest Pain, No SOB Respiratory: No Cough, No Sputum, No Wheezing Gastrointestinal: + Nausea, No Vomiting, No Diarrhea, No Constipation, No Abdominal pain Genitourinary: No Dysuria, No Urinary Frequency, No Hematuria, No Urinary Incontinence/retention, No Urgency, No Flank Pain Musculoskeletal: + joint pain, No Myalgias, No Joint Swelling Skin: No Skin Lesions, No rash Neuro: No Weakness, No Numbness, No Paresthesias <JEWEL Moraes Last Filed: 05/21/22 18:32> Yes all other systems are reviewed and are negative <JEWEL Moraes Last Filed: 05/21/22 18:32> Constitutional: Constitutional: Reports as per HPI <JEWEL Moraes Last Filed: 05/21/22 18:32> PMFSH Past Medical History Attestation statement: The following information was validated with the patient. <JEWEL Moraes - Last Filed: 05/21/22 18:32> Medical History: Medical History Asthma COPD (chronic obstructive pulmonary disease) HTN (hypertension) Hypercholesteremia On beta maria d at home Positive FIT (fecal immunochemical test) <JEWEL Moran - Last Filed: 05/21/22 13:15> Surgical History: Surgical History History of surgical removal of ganglion cyst Hx of bilateral cataract extraction Hx of colonoscopy Hx of hysterectomy <JEWEL Moran - Last Filed: 05/21/22 13:15> Family History Family History: Family History Daughter Parkinson disease Breast cancer Brother Lung cancer Daughter Heart disease <JEWEL Moran - Last Filed: 05/21/22 13:15> Social History Social History: Social History Household Members: Family Alcohol intake: never Patient Tobacco Use Status: Current everyday Tobacco user Smoked in Last 30 Days: No Use of substances other than those prescribed or required for medical reasons: No Advance Directives: Yes Advance Directives Information Provided: No Advance Directives on File: No <JEWEL Moran - Last Filed: 05/21/22 13:15> Physical Exam Vital Signs: Vital Signs: Last Vital Signs Temp 98 F 05/21/22 13:13 Pulse 65 05/21/22 14:59 Resp 18 05/21/22 14:59 BP 178/95 H 05/21/22 14:59 Pulse Ox 98 05/21/22 14:59 O2 Del Method Room Air 05/21/22 14:59 BMI result Body Mass Index 17.3 <JEWEL Moran - Last Filed: 05/21/22 13:15> Vital Signs: Last Vital Signs Temp 98 F 05/21/22 13:13 Pulse 65 05/21/22 14:59 Resp 18 05/21/22 14:59 BP 178/95 H 05/21/22 14:59 Pulse Ox 98 05/21/22 14:59 O2 Del Method Room Air 05/21/22 14:59 BMI result Body Mass Index 17.3 <JEWEL Moraes - Last Filed: 05/21/22 18:32> Const: General: cooperative, healthy appearing, no acute distress, alert and awake <JEWEL Moraes - Last Filed: 05/21/22 18:32> Orientation/consciousness: patient oriented x3 <JEWEL Moraes - Last Filed: 05/21/22 18:32> Limitations: no limitations <JEWEL Moraes - Last Filed: 05/21/22 18:32> HEENT: Head: Yes normal to inspection and Yes atraumatic <JEWEL Moraes - Last Filed: 05/21/22 18:32> Ears: hearing grossly normal bilaterally <JEWEL Moraes - Last Filed: 05/21/22 18:32> General nose exam: Normal external nose present <JEWEL Moraes - Last Filed: 05/21/22 18:32> Face and sinus: Yes normal facial exam <JEWEL Moraes - Last Filed: 05/21/22 18:32> Eyes: General: appearance normal, both eyes and all related structures <JEWEL Moraes - Last Filed: 05/21/22 18:32> EOM: EOMs intact bilaterally <JEWEL Moraes - Last Filed: 05/21/22 18:32> Neck: Neck: Yes normal visual inspection and Yes no meningeal signs <JEWEL Moraes - Last Filed: 05/21/22 18:32> Resp: Effort & Inspection: normal respiratory effort and no respiratory distress <JEWEL Moraes - Last Filed: 05/21/22 18:32> Auscultation: clear to auscultation bilaterally <JEWEL Moraes - Last Filed: 05/21/22 18:32> Cardio: Rate: regular rate <JEWEL Moraes - Last Filed: 05/21/22 18:32> Heart sounds: S1 normal heart sound present and S2 normal heart sound present <JEWEL Moraes Last Filed: 05/21/22 18:32> Peripheral pulses: Peripheral pulses 2+ throughout <JEWEL Moraes Last Filed: 05/21/22 18:32> Skin: Rashes: no rashes <JEWEL Moraes Last Filed: 05/21/22 18:32> Wounds: no wounds <JEWEL Moraes - Last Filed: 05/21/22 18:32> Neuro: General: patient oriented x3, tone normal and no meningeal signs <JEWEL Moraes Last Filed: 05/21/22 18:32> Gait exam (Neuro): Normal gait present <JEWEL Moraes Last Filed: 05/21/22 18:32> Extrem: Other: No pitting edema, +LLE with mild distal ttp. No erythema/ecchymosis or warmth. Compartments soft, no crepitus. FROM intact. +distal pulses palpable, but decreased on the LLE. +bilaterally dooplerable <JEWEL Moraes Last Filed: 05/21/22 18:32> Course Course Course Narrative: This is an RME: Additional HPI, ROS, PE not included below will be deferred to primary provider. 81-year-old female presents from urgent care requesting left lower extremity venous duplex to rule out DVT to left lower extremity pain from the knee to the foot since this morning. Patient tells me s he feels some numbness to that aspect of the leg as well. Denies any trauma. Not on blood thinners. No history of DVT or PE. Reports it appears slightly swollen when compared to her baseline. Physical exam is essentially benign. Palpable pulses. DVT study ordered. <JEWEL Moran - Last Filed: 05/21/22 13:15> This is an RME: Additional HPI, ROS, PE not included below will be deferred to primary provider. 81-year-old female presents from urgent care requesting left lower extremity venous duplex to rule out DVT to left lower extremity pain from the knee to the foot since this morning. Patient tells me she feels some numbness to that aspect of the leg as well. Denies any trauma. Not on blood thinners. No history of DVT or PE. Reports it appears slightly swollen when compared to her baseline. Physical exam is essentially benign. Palpable pulses. DVT study ordered. 1550--US venous duplex LE LT IMPRESSION: No DVT demonstrated in the left lower extremity. US arterial duplex LE LT IMPRESSION: No evidence of hemodynamically significant infrainguinal stenosis. ? -no leukocytosis. Initial troponin 6.7 > will obtain 3 hour repeat. BNP 158 (chronically elevated) -on re-evaluation patient reports symptomatic improvement, denies nausea or pain at present <JEWEL Moraes - Last Filed: 05/21/22 18:32> Medications Administered Discontinued Medications Generic Name Dose Route Start Last Admin Trade Name Freq PRN Reason Stop Dose Admin Ketorolac Tromethamine 15 mg 05/21/22 14:51 05/21/22 14:53 Ketorolac Tromethamine 15 Mg/Ml Vial IVPUSH 05/21/22 14:52 15 mg ONCE ONE Administration Ondansetron HCl 4 mg 05/21/22 14:45 05/21/22 14:53 Ondansetron Hcl 4 Mg/2 Ml Vial IVPUSH 05/21/22 14:46 4 mg ONCE ONE Administration <JEWEL Moarn - Last Filed: 05/21/22 13:15> Medications Administered Discontinued Medications Generic Name Dose Route Start Last Admin Trade Name Freq PRN Reason Stop Dose Admin Ketorolac Tromethamine 15 mg 05/21/22 14:51 05/21/22 14:53 Ketorolac Tromethamine 15 Mg/Ml Vial IVPUSH 05/21/22 14:52 15 mg ONCE ONE Administration Ondansetron HCl 4 mg 05/21/22 14:45 05/21/22 14:53 Ondansetron Hcl 4 Mg/2 Ml Vial IVPUSH 05/21/22 14:46 4 mg ONCE ONE Administration <JEWEL Moraes - Last Filed: 05/21/22 18:32> Medical Decision Making Medical Decision Making MDM Narrative: 81-year-old female with past medical history of asthma, COPD, HTN, HLD, presenting to the ED complaining of sudden onset left lower leg pain since this morning with associated nausea. On exam vital signs stable, NAD, physical exam as above. Mild left lower extremity tenderness to palpation, no appreciable edema/erythema or warmth. Pulses intact and dopplerable however decreased to LLE. Concern for DVT vs PAD. Low suspicion for fracture, cellulitis, compartment syndrome, dissection. Rule out atypical ACS Plan: EKG, labs, venous and arterial duplex Please refer to course for remaining clinical decision making, interpretation of labs/imaging results, and discussions with consultants and/or family members. <JEWEL Moraes - Last Filed: 05/21/22 18:32> Differential Diagnosis Differential Diagnoses: The differential diagnosis associated with the presentation includes <JEWEL Moraes - Last Filed: 05/21/22 18:32> As above <JEWEL Moraes - Last Filed: 05/21/22 18:32> Admission/Observation Consideration of admission/observation: Escalation of care including admission/observation considered <JEWEL Moraes - Last Filed: 05/21/22 18:32> Lab Data MDM Lab Attestation statement: I reviewed the patient's lab results. <JEWEL Moraes - Last Filed: 05/21/22 18:32> Result Diagrams: 05/21/22 14:50 05/21/22 14:50 <JEWEL Moran - Last Filed: 05/21/22 13:15> Labs: Lab Results 05/21/22 05/21/22 05/21/22 Range/Units 14:50 14:50 14:50 WBC 10.6 (4.8-10.8) X10*3/uL RBC 4.84 (4.20-5.50) X10*6/uL Hgb 14.2 (12.0-16.0) g/dl Hct 43.5 (37.0-47.0) % MCV 89.9 (80.0-98.0) fL MCH 29.3 (27.0-33.0) pg MCHC 32.6 (31.0-35.0) g/dl RDW 13.3 (11.0-16.0) % Plt Count 217 (160-400) X10*3/uL MPV 9.7 (9.4-12.3) fL Immature Gran % (Auto) 0.4 (0.0-0.4) % Neut % (Auto) 80.6 H (45-73) % Lymph % (Auto) 11.9 L (20-40) % [place] % (Auto) 6.6 (2-11) % Eos % (Auto) 0.1 (0-4) % Baso % (Auto) 0.4 (0-2) % Lymph # (Auto) 1.3 (1.2-4.9) X10*3/uL [place] # (Auto) 0.7 (0.1-1.2) X10*3/uL Eos # (Auto) 0.0 (0.0-0.4) X10*3/uL Baso # (Auto) 0.0 (0.0-0.2) X10*3/uL Abs Immat Gran (auto) 0.04 H (0.00-0.03) X10*3/uL Absolute Neuts (auto) 8.6 H (2.0-8.3) x10*3/uL Absolute Nucleated RBC 0.000 (0.0-0.012) X10*3/uL Nucleated RBC % (auto) 0.0 (0.0-0.2) /100WBC PT 12.6 (10.0-13.1) SEC INR 1.1 (0.9-1.1) Sodium 143 (135-145) mmol/L Potassium 4.7 (3.3-5.1) mmol/L Chloride 106 (96-108) mmol/L Carbon Dioxide 31 H (22-29) mmol/L Anion Gap 11 L (12-20) BUN 15 (9-16) mg/dL Creatinine 0.73 (0.5-1.4) mg/dL Estim Creat Clear Calc 41.0 Estimated GFR > 60 Random Glucose 99 (60-115) mg/dL Calcium 9.1 (8.4-10.2) mg/dL Total Bilirubin 0.6 (0.0-1.0) mg/dL Direct Bilirubin 0.2 (0.0-0.5) mg/dL AST 18 (5-31) U/L ALT 9 (0-31) U/L Alkaline Phosphatase 80 (39-117) U/L Troponin I High Sens (<3.5-17.0) ng/L B-Natriuretic Peptide (<100) pg/mL Total Protein 6.8 (6.5-8.0) g/dL Albumin 4.0 (3.5-5.0) g/dL 05/21/22 05/21/22 05/21/22 Range/Units 14:50 14:50 17:47 WBC (4.8-10.8) X10*3/uL RBC (4.20-5.50) X10*6/uL Hgb (12.0-16.0) g/dl Hct (37.0-47.0) % MCV (80.0-98.0) fL MCH (27.0-33.0) pg MCHC (31.0-35.0) g/dl RDW (11.0-16.0) % Plt Count (160-400) X10*3/uL MPV (9.4-12.3) fL Immature Gran % (Auto) (0.0-0.4) % Neut % (Auto) (45-73) % Lymph % (Auto) (20-40) % [place] % (Auto) (2-11) % Eos % (Auto) (0-4) % Baso % (Auto) (0-2) % Lymph # (Auto) (1.2-4.9) X10*3/uL [place] # (Auto) (0.1-1.2) X10*3/uL Eos # (Auto) (0.0-0.4) X10*3/uL Baso # (Auto) (0.0-0.2) X10*3/uL Abs Immat Gran (auto) (0.00-0.03) X10*3/uL Absolute Neuts (auto) (2.0-8.3) x10*3/uL Absolute Nucleated RBC (0.0-0.012) X10*3/uL Nucleated RBC % (auto) (0.0-0.2) /100WBC PT (10.0-13.1) SEC INR (0.9-1.1) Sodium (135-145) mmol/L Potassium (3.3-5.1) mmol/L Chloride (96-108) mmol/L Carbon Dioxide (22-29) mmol/L Anion Gap (12-20) BUN (9-16) mg/dL Creatinine (0.5-1.4) mg/dL Estim Creat Clear Calc Estimated GFR Random Glucose (60-115) mg/dL Calcium (8.4-10.2) mg/dL Total Bilirubin (0.0-1.0) mg/dL Direct Bilirubin (0.0-0.5) mg/dL AST (5-31) U/L ALT (0-31) U/L Alkaline Phosphatase (39-117) U/L Troponin I High Sens 6.7 6.9 (<3.5-17.0) ng/L B-Natriuretic Peptide 158 H (<100) pg/mL Total Protein (6.5-8.0) g/dL Albumin (3.5-5.0) g/dL <JEWEL Moran - Last Filed: 05/21/22 13:15> Lab Results 05/21/22 05/21/22 05/21/22 Range/Units 14:50 14:50 14:50 WBC 10.6 (4.8-10.8) X10*3/uL RBC 4.84 (4.20-5.50) X10*6/uL Hgb 14.2 (12.0-16.0) g/dl Hct 43.5 (37.0-47.0) % MCV 89.9 (80.0-98.0) fL MCH 29.3 (27.0-33.0) pg MCHC 32.6 (31.0-35.0) g/dl RDW 13.3 (11.0-16.0) % Plt Count 217 (160-400) X10*3/uL MPV 9.7 (9.4-12.3) fL Immature Gran % (Auto) 0.4 (0.0-0.4) % Neut % (Auto) 80.6 H (45-73) % Lymph % (Auto) 11.9 L (20-40) % [place] % (Auto) 6.6 (2-11) % Eos % (Auto) 0.1 (0-4) % Baso % (Auto) 0.4 (0-2) % Lymph # (Auto) 1.3 (1.2-4.9) X10*3/uL [place] # (Auto) 0.7 (0.1-1.2) X10*3/uL Eos # (Auto) 0.0 (0.0-0.4) X10*3/uL Baso # (Auto) 0.0 (0.0-0.2) X10*3/uL Abs Immat Gran (auto) 0.04 H (0.00-0.03) X10*3/uL Absolute Neuts (auto) 8.6 H (2.0-8.3) x10*3/uL Absolute Nucleated RBC 0.000 (0.0-0.012) X10*3/uL Nucleated RBC % (auto) 0.0 (0.0-0.2) /100WBC PT 12.6 (10.0-13.1) SEC INR 1.1 (0.9-1.1) Sodium 143 (135-145) mmol/L Potassium 4.7 (3.3-5.1) mmol/L Chloride 106 (96-108) mmol/L Carbon Dioxide 31 H (22-29) mmol/L Anion Gap 11 L (12-20) BUN 15 (9-16) mg/dL Creatinine 0.73 (0.5-1.4) mg/dL Estim Creat Clear Calc 41.0 Estimated GFR > 60 Random Glucose 99 (60-115) mg/dL Calcium 9.1 (8.4-10.2) mg/dL Total Bilirubin 0.6 (0.0-1.0) mg/dL Direct Bilirubin 0.2 (0.0-0.5) mg/dL AST 18 (5-31) U/L ALT 9 (0-31) U/L Alkaline Phosphatase 80 (39-117) U/L Troponin I High Sens (<3.5-17.0) ng/L B-Natriuretic Peptide (<100) pg/mL Total Protein 6.8 (6.5-8.0) g/dL Albumin 4.0 (3.5-5.0) g/dL 05/21/22 05/21/22 05/21/22 Range/Units 14:50 14:50 17:47 WBC (4.8-10.8) X10*3/uL RBC (4.20-5.50) X10*6/uL Hgb (12.0-16.0) g/dl Hct (37.0-47.0) % MCV (80.0-98.0) fL MCH (27.0-33.0) pg MCHC (31.0-35.0) g/dl RDW (11.0-16.0) % Plt Count (160-400) X10*3/uL MPV (9.4-12.3) fL Immature Gran % (Auto) (0.0-0.4) % Neut % (Auto) (45-73) % Lymph % (Auto) (20-40) % [place] % (Auto) (2-11) % Eos % (Auto) (0-4) % Baso % (Auto) (0-2) % Lymph # (Auto) (1.2-4.9) X10*3/uL [place] # (Auto) (0.1-1.2) X10*3/uL Eos # (Auto) (0.0-0.4) X10*3/uL Baso # (Auto) (0.0-0.2) X10*3/uL Abs Immat Gran (auto) (0.00-0.03) X10*3/uL Absolute Neuts (auto) (2.0-8.3) x10*3/uL Absolute Nucleated RBC (0.0-0.012) X10*3/uL Nucleated RBC % (auto) (0.0-0.2) /100WBC PT (10.0-13.1) SEC INR (0.9-1.1) Sodium (135-145) mmol/L Potassium (3.3-5.1) mmol/L Chloride (96-108) mmol/L Carbon Dioxide (22-29) mmol/L Anion Gap (12-20) BUN (9-16) mg/dL Creatinine (0.5-1.4) mg/dL Estim Creat Clear Calc Estimated GFR Random Glucose (60-115) mg/dL Calcium (8.4-10.2) mg/dL Total Bilirubin (0.0-1.0) mg/dL Direct Bilirubin (0.0-0.5) mg/dL AST (5-31) U/L ALT (0-31) U/L Alkaline Phosphatase (39-117) U/L Troponin I High Sens 6.7 6.9 (<3.5-17.0) ng/L B-Natriuretic Peptide 158 H (<100) pg/mL Total Protein (6.5-8.0) g/dL Albumin (3.5-5.0) g/dL <JEWEL Moraes - Last Filed: 05/21/22 18:32> Independent Interpretation I performed an independent interpretation of an: EKG (EKG normal sinus rhythm at a rate of 65. QRS 156. QTC 448. PACs no longer present when compared to prior ) <JEWEL Moraes - Last Filed: 05/21/22 18:32> Radiology Impression Discussion of test interpretation with radiology: I have reviewed the radiologist's reading. <JEWEL Moraes - Last Filed: 05/21/22 18:32> External Record Review External record reviewed: Inpatient record, Office record, Outpatient record, Prior outpatient labs, Prior outpatient radiology, Primary care record and Outside ED record <JEWEL Moraes - Last Filed: 05/21/22 18:32> Discharge Plan Discharge Clinical Impression: Acute pain of left lower extremity <JEWEL Moran - Last Filed: 05/21/22 13:15> Patient Disposition: Home, Self-Care <JEWEL Moran - Last Filed: 05/21/22 13:15> Instructions: Leg Pain (ED) <JEWEL Moran - Last Filed: 05/21/22 13:15> Additional Instructions: Your blood work and ultrasound were reassuring. Your ultrasound did not show a blood clot or any significant arterial stenosis Please fluids follow up with her PCP. Take Tylenol and Motrin as needed for pain Elevate Ice as needed If symptoms persist or worsen, pain becomes unbearable, he had chest pain or shortness of breath return to the ED <JEWEL Moran - Last Filed: 05/21/22 13:15> Prescriptions: No Action alum-mag hydroxide-simeth [Maalox Advanced] 200-200-20 mg/5 mL suspension 5 ml PO 5XD PRN (Reason: dyspepsia) Qty: 355 0RF Rx Instructions: administer between meals and at bedtime metoprolol succinate 25 mg tablet extended release 24 hr 25 mg PO DAILY rosuvastatin 20 mg tablet 20 mg PO BEDTIME Combivent Respimat 20-100 mcg/actuation mist 1 puff inhalation QID cholecalciferol (vitamin D3) 25 mcg (1,000 unit) capsule 25 mcg PO DAILY garlic Tablet 300 mg PO DAILY aspirin [Adult Low Dose Aspirin] 81 mg tablet,delayed release (DR/EC) 81 mg PO DAILY Citrucel 500 mg tablet 500 mg PO DAILY Qty: 90 2RF Rx Instructions: take it with full glass of water Probiotic 3 billion cell capsule 3,000 mmu cells PO DAILY Qty: 30 5RF Rx Instructions: administer with a meal bisacodyl [Dulcolax (bisacodyl)] 5 mg tablet,delayed release (DR/EC) 10 mg PO ONCE 1 Days Qty: 2 0RF Rx Instructions: take 2 tabs at noon the day before your colonoscopy polyethylene glycol 3350 [Miralax] 17 gram/dose powder 238 g PO ONCE Qty: 238 0RF Rx Instructions: As directed by gastroenterology department at [facility] docusate sodium 100 mg capsule 100 mg PO BEDTIME Qty: 90 3RF <JEWEL Moran - Last Filed: 05/21/22 13:15> Referrals: Nino Jackson MD [Primary Care Provider] - 2 days <JEWEL Moran - Last Filed: 05/21/22 13:15>
--- NOTE | 2022-05-21 14:01 | ECG_ITS ---
Test Reason : naseous Blood Pressure : / mmHG Vent. Rate : 065 BPM Atrial Rate : 065 BPM P-R Int : 180 ms QRS Dur : 156 ms QT Int : 470 ms P-R-T Axes : 084 -50 125 degrees QTc Int : 488 ms Normal sinus rhythm Left axis deviation Left bundle branch block Abnormal ECG When compared with ECG of 04-AUG-2019 11:07, Premature atrial complexes are no longer Present Referred By: Josette Sandhu Electronically Signed By:ROBER LEMONS MD
[2022-05-21] MEDS: ondansetron HCL 4 MG/2 ML VIAL IVPUSH (14:53)
[2022-05-21] MEDS: Ketorolac Tromethamine 15 MG/ML VIAL IVPUSH (14:53)
[2022-05-21 14:54] LABS: MANUAL DIFF FLAG NO
[2022-05-21 14:56] LABS: Basophils Percent Auto 0.4 % (0-2); Eosinophils Percent Auto 0.1 % (0-4); Hematocrit 43.5 % (37.0-47.0); Hemoglobin 14.2 g/dl (12.0-16.0); Imm Gran Abs Auto 0.04 X10*3/uL (0.00-0.03); Imm Gran Pct Auto 0.4 % (0.0-0.4); Lymphocytes Absolute Auto 1.3 X10*3/uL (1.2-4.9); Lymphocytes Percent Auto 11.9 % (20-40); Mean Corpuscular HGB Conc 32.6 g/dl (31.0-35.0); Mean Corpuscular Hemoglobin 29.3 pg (27.0-33.0); Mean Corpuscular Volume 89.9 fL (80.0-98.0); Mean Platelet Volume 9.7 fL (9.4-12.3); Monocytes Absolute Auto 0.7 X10*3/uL (0.1-1.2); Monocytes Percent Auto 6.6 % (2-11); Neutrophils Absolute Auto 8.6 x10*3/uL (2.0-8.3); Neutrophils Percent Auto 80.6 % (45-73); Platelet Count 217 X10*3/uL (160-400); Red Blood Count 4.84 X10*6/uL (4.20-5.50); Red Cell Distribution Width 13.3 % (11.0-16.0); White Blood Count 10.6 X10*3/uL (4.8-10.8)
[2022-05-21 14:59] VITALS: BP 178/95; PULSE 65; RESP 18; O2SAT 98
[2022-05-21 15:01] LABS: INTERNATIONAL NORM RATIO 1.1 (0.9-1.1); Prothrombin Time 12.6 SEC (10.0-13.1)
[2022-05-21 15:16] LABS: Alanine Aminotransferase 9 U/L (0-31); Alkaline Phosphatase 80 U/L (39-117); Anion Gap 11 (12-20); Aspartate Amino Transferase 18 U/L (5-31); Bilirubin Direct 0.2 mg/dL (0.0-0.5); Bilirubin Total 0.6 mg/dL (0.0-1.0); Blood Urea Nitrogen 15 mg/dL (9-16); Calcium 9.1 mg/dL (8.4-10.2); Carbon Dioxide 31 mmol/L (22-29); Chloride 106 mmol/L (96-108); Estimated Glomerular Filt Rate > 60; Glucose Random 99 mg/dL (60-115); Potassium 4.7 mmol/L (3.3-5.1); Sodium 143 mmol/L (135-145); Total Protein 6.8 g/dL (6.5-8.0); Troponin-I High Sensitivity 6.7 ng/L (<3.5-17.0)
[2022-05-21 15:18] LABS: B Type Natriuretic Peptide 158 pg/mL (<100)
[2022-05-21 18:27] LABS: Troponin-I High Sensitivity 6.9 ng/L (<3.5-17.0)
== END 2022-05-21 18:48 | disposition home or self-care (01) ==
PROVIDERS: Physician Assistant; Emergency Provider Emergency Medicine; PCP Internal Medicine
DX: M79.662 Pain in left lower leg (principal); I10 Essential (primary) hypertension; E78.5 Hyperlipidemia, unspecified; J44.9 Chronic obstructive pulmonary disease, unspecified; F17.200 Nicotine dependence, unspecified, uncomplicated; Z79.82 Long term (current) use of aspirin; Z79.02 Long term (current) use of antithrombotics/antiplatelets; Z79.899 Other long term (current) drug therapy
CPT/HCPCS: 36415; 80048; 80076; 83880; 84484; 85025; 85610; 93005; 93926; 93971; 96374; 96375; 99284; 99285; J1885; J2405

== ENCOUNTER 2022-05-27 10:34 | Outpatient (REF) | payer MEDICARE, SELFPAY ==
--- NOTE | ~2022-05-27 | MM_ITS ---
EXAMINATION: BONE DENSITOMETRY CLINICAL INDICATION: Postmenopausal. COMPARISON: Previous BD dated 10/06/2016 and baseline BD dated 07/11/2006. TECHNIQUE: Using a [employer]ice[employer] DXA System (software version: 13.1) manufactured by [employer], dual-energy x-ray absorptiometry was performed of the lumbar spine and left hip. The images are of good technical quality. Summary results are attached. FINDINGS: AP SPINE L1-L4: Current: BMD 0.813 g/cm2, Z-score -0.5, T-score -3.1, osteoporosis, 11.3% decrease from previous, 18.6% decrease from baseline (<5% change is not significant). Prior: BMD 0.917 g/cm2. Baseline: BMD 0.999 g/cm2. LEFT FEMUR, NECK: Current: BMD 0.657 g/cm2, Z-score 0.0, T-score -2.7, osteoporosis. Prior: BMD 0.682 g/cm2. Baseline: BMD 0.793 g/cm2. LEFT FEMUR, TOTAL: Current: BMD 0.615 g/cm2, Z-score -0.4, T-score -3.1, osteoporosis, 10.6% decrease from previous, 26.8% decrease from baseline (<5% change is not significant). Prior: BMD 0.688 g/cm2. Baseline: BMD 0.840 g/cm2. IDENTIFIED RISK FACTORS: Early menopause, secondary osteoporosis, tobacco use (current smoker), hysterectomy, bilateral oophorectomy. HISTORY OF FRACTURE: None listed. MEDICATIONS: Vitamin D. MM/XR DEXA axial skeleton IMPRESSION: 1. DIAGNOSIS: Osteoporosis based on the lowest T-score value of -3.1 in the total femur and lumbar spine applying World Health Organization criteria. 2. 10-YEAR FRACTURE RISK PREDICTION, FRAX: According to the guidelines, FRAX calculation should only be performed on patients in the osteopenia bone density category. Therefore, FRAX was not performed on this patient. 3. Treatment Recommendations: NOF guidelines recommend consideration for treatment in postmenopausal women and men age 50 and older presenting with the following: -A hip or vertebral (clinical or morphometric) fracture. -T-score less than or equal to -2.5 at the femoral neck or spine after appropriate evaluation to exclude secondary causes. -Low bone mass at the hip or spine and a 10-year fracture probability by FRAX of greater than or equal to 3% for hip fracture or greater than or equal to 20% for major osteoporotic fracture based on the [place] adapted WHO algorithm. 4. Other Recommendations: All treatment decisions require clinical judgment and consideration of individual patient factors, including patient preferences, comorbidities, previous drug use, risk factors not captured in the FRAX model (e.g. frailty, falls, vitamin D deficiency, increased bone turnover, interval significant decline in bone density) and possible under or overestimation of fracture risk by FRAX. Additional medical evaluation for secondary cause of low bone mineral density may be appropriate. FUTURE SCAN RECOMMENDATION: People with diagnosed cases of osteoporosis or at high risk for fracture should have regular bone mineral density tests. For patients eligible for Medicare, routine testing is allowed once every 2 years. The testing frequency can be increased to one year for patients who have rapidly progressing disease, those who are receiving or discontinuing medical therapy to restore bone mass, or have additional risk factors.
== END 2022-05-27 10:35 | disposition home or self-care (01) ==
LOC: HO.MAMMO 10:34
PROVIDERS: PCP Internal Medicine; Visit Provider Internal Medicine
DX: Z13.820 Encounter for screening for osteoporosis (principal); Z78.0 Asymptomatic menopausal state
CPT/HCPCS: 77080

== ENCOUNTER → 2022-07-19 09:03 | Outpatient (BNVA) | payer MEDICARE, SELFPAY | PROVIDERS: PCP Internal Medicine; Visit Provider Internal Medicine Endocrinology, Diabetes & Metabolism | DX: M81.0 Age-related osteoporosis without current pathological fracture (principal) | CPT/HCPCS: 84100; 84165; 86335; 99202 ==

== ENCOUNTER 2022-07-19 09:51 | Outpatient (REF) | payer MEDICARE, SELFPAY ==
[2022-07-19 11:27] LABS: Phosphorus 3.6 mg/dL (2.7-4.5)
[2022-07-22 18:53] LABS: Prot Elec - Albumin 3.1 g/dL (3.8-4.8); Prot Elec - Alpha1 0.5 g/dL (0.2-0.3); Prot Elec - Beta 1 0.4 g/dL (0.4-0.6); Prot Elec - Beta 2 0.3 g/dL (0.2-0.5); Prot Elec - Gamma 0.7 g/dL (0.8-1.7)
== END 2022-07-19 09:52 | disposition home or self-care (01) ==
LOC: HO.10HDL 09:51
PROVIDERS: Visit Provider Internal Medicine Endocrinology, Diabetes & Metabolism
DX: Z13.89 Encounter for screening for other disorder (principal)
CPT/HCPCS: 84100; 84165; 86335

== ENCOUNTER 2022-07-30 10:31 | Outpatient (REF) | payer MEDICARE, SELFPAY ==
[2022-07-30 11:24] LABS: Total Volume 24 Hour Urine 800 mL
[2022-07-30 11:38] LABS: Creatinine, 24Hr Urine 0.6 G/Day (1.0-2.0)
[2022-08-01 17:24] LABS: Calcium, 24 Hr Urine 90 mg/24 h; Calcium/Creatinine Ratio 158 mg/g creat (30-275); Creatinine 24Hr Urine 0.57 g/24 h (0.50-2.15)
== END 2022-07-30 10:32 | disposition home or self-care (01) ==
LOC: HO.LNP 10:31
PROVIDERS: Visit Provider Internal Medicine Endocrinology, Diabetes & Metabolism
DX: M81.0 Age-related osteoporosis without current pathological fracture (principal)
CPT/HCPCS: 82340; 82570

== ENCOUNTER 2022-09-16 13:33 | Outpatient (AMB) | payer MEDICARE, SELFPAY ==
--- NOTE | 2022-09-16 13:36 | MHC.OFFVIS ---
Intake Vital Signs 09/16/22 13:37 Height 5 ft 2.99 in Weight 93 lb 7.616 oz BMI 16.6 BP 132/7 L Blood Pressure Location Lt brachial Position Sitting Pulse 74 Pulse Source Pulse Oximeter Intake Visit Reasons: discussion about anabolic therapy Intake Note: Patient presents today for discussion of anabolic therapy. 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 Accompanied by: Daughter Allergies amoxicillin [AMOXICILLIN] Allergy (Intermediate, Verified 09/16/22 13:39) ITCHY EYES/RASH codeine [CODEINE] Allergy (Unknown, Verified 09/16/22 13:39) RASH zocor Allergy (Unknown, Uncoded 07/19/22 09:18) muscle pain Medication List - Last Reconciled 09/16/22 by Juwan Davis MD alum-mag hydroxide-simeth 200-200-20 mg/5 mL (Maalox Advanced) 5 mL PO 5XD PRN aspirin (Adult Low Dose Aspirin) 81 mg PO DAILY cholecalciferol (vitamin D3) 25 mcg PO DAILY garlic 300 mg PO DAILY ipratropium-albuterol 20-100 mcg/actuation 1 puff inhalation QID lorazepam 0.5 mg PO Q8H PRN metoprolol succinate ER 25 mg PO DAILY rosuvastatin 20 mg PO BEDTIME HPI HPI Comments History of Present Illness Details 81 YO Female with is seen in consultation at the request of PCP for Osteoporosis. First diagnosed in this yr . Not Received treatment in the past No history of pathologic fracture or ONJ. Has few servings of dietary calcium per day in the form of milh and cheese . Not Takes Calcium supplement . Takes 1000 IU of Vitamin D daily. Denies ever using PPI, anticoagulant, antiepileptic or glucocorticoid medication. 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 UTD on dental cleanings and sees dentist every 6 months. No planned upcoming dental work or extractions. DXA dated 05/27/2022 :[facility] [address] [place] [address] [place] [address] Mammography Report Signed Patient: Kassidy Morfin Follow Up: Procedure(s): XR DEXA axial skeleton Accession Number(s): [id number] cc: Nino Jackson MD~ EXAMINATION: BONE DENSITOMETRY CLINICAL INDICATION: Postmenopausal. COMPARISON: Previous BD dated 10/06/2016 and baseline BD dated 07/11/2006. TECHNIQUE: Using a [employer] DXA System (software version: 13.1) manufactured by [employer], dual-energy x-ray absorptiometry was performed of the lumbar spine and left hip. The images are of good technical quality. Summary results are attached. FINDINGS: AP SPINE L1-L4: Current: BMD 0.813 g/cm2, Z-score -0.5, T-score -3.1, osteoporosis, 11.3% decrease from previous, 18.6% decrease from baseline (<5% change is not significant). Prior: BMD 0.917 g/cm2. Baseline: BMD 0.999 g/cm2. LEFT FEMUR, NECK: Current: BMD 0.657 g/cm2, Z-score 0.0, T-score -2.7, osteoporosis. Prior: BMD 0.682 g/cm2. Baseline: BMD 0.793 g/cm2. LEFT FEMUR, TOTAL: Current: BMD 0.615 g/cm2, Z-score -0.4, T-score -3.1, osteoporosis, 10.6% decrease from previous, 26.8% decrease from baseline (<5% change is not significant). Prior: BMD 0.688 g/cm2. Baseline: BMD 0.840 g/cm2. IDENTIFIED RISK FACTORS: Early menopause, secondary osteoporosis, tobacco use (current smoker), hysterectomy, bilateral oophorectomy. HISTORY OF FRACTURE: None listed. MEDICATIONS: Vitamin D. MM/XR DEXA axial skeleton IMPRESSION: 1. DIAGNOSIS: Osteoporosis based on the lowest T-score value of -3.1 in the total femur and lumbar spine applying World Health Organization Labs: Secondary workup was negative [facility] Medical History (Updated 07/19/22 @ 09:23 by Juwan Davis MD) Asthma COPD (chronic obstructive pulmonary disease) HTN (hypertension) Hypercholesteremia On beta maria d at home Osteoporosis Positive FIT (fecal immunochemical test) Surgical History History of surgical removal of ganglion cyst Hx of bilateral cataract extraction Hx of colonoscopy Hx of hysterectomy Family History Daughter Parkinson disease Breast cancer Brother Lung cancer Daughter Heart disease Social History Household Members: Family Alcohol intake: never Patient Tobacco Use Status: Current everyday Tobacco user Physical Exam Vital Signs: Last Vital Signs Pulse 74 09/16/22 13:37 BP 132/7 L 09/16/22 13:37 BMI result Body Mass Index 16.6 Assessment & Plan Assessment & Plan (1) Osteoporosis: Code(s): M81.0 - Age-related osteoporosis without current pathological fracture Plan: This is a 81-year-old white female with a history of osteoporosis with partial secondary workup. Plan is to talk about pharmacologic therapy potentially with anti resorptive agents like oral or intravenous bisphosphonate or Prolia. Considering patient's risk factors being frail, , smoking and moderate low bone density she has a very high risk for fracture and could consider alternatively anabolic therapy to start if insurance will cover Coding Level of Care Code Est Pt Level 3 (63303) Diagnoses Osteoporosis M81.0
[2022-09-16 13:37] VITALS: BP 132/7; PULSE 74; BMI 16.6
== END 2022-09-16 14:06 | disposition home or self-care (01) ==
PROVIDERS: PCP Internal Medicine; Visit Provider Internal Medicine Endocrinology, Diabetes & Metabolism
DX: M81.0 Age-related osteoporosis without current pathological fracture (principal)
CPT/HCPCS: 99213

== ENCOUNTER → 2022-09-16 13:33 | Outpatient (BNVA) | payer MEDICARE, SELFPAY | PROVIDERS: PCP Internal Medicine; Visit Provider Internal Medicine Endocrinology, Diabetes & Metabolism | DX: M81.0 Age-related osteoporosis without current pathological fracture (principal) | CPT/HCPCS: 99212 ==

== ENCOUNTER 2022-11-21 12:26 | Outpatient (AMB) | payer MEDICARE, SELFPAY ==
--- NOTE | 2022-11-21 13:36 | MHC.OFFWIV ---
Intake Vital Signs 11/21/22 13:39 Height 5 ft 2 in Weight 94 lb BMI 17.2 BP 118/72 Blood Pressure Location Rt brachial Position Sitting Pulse 75 Pulse Source Pulse Oximeter Temp 97.4 F Pulse Oximetry (%) 95 Oxygen Delivery Method Room Air Intake Visit Reasons: EP Cold/Stuffy (masked) Intake Note: patient is here today for cold/stuffy Patient Tobacco Use Status: Current everyday Tobacco user Allergies amoxicillin [AMOXICILLIN] Allergy (Intermediate, Verified 11/21/22 13:48) ITCHY EYES/RASH codeine [CODEINE] Allergy (Unknown, Verified 11/21/22 13:48) RASH zocor Allergy (Unknown, Uncoded 11/21/22 13:48) muscle pain Medication List - Last Reconciled 11/21/22 by Spencer Marshall MD alum-mag hydroxide-simeth 200-200-20 mg/5 mL (Maalox Advanced) 5 mL PO 5XD PRN aspirin (Adult Low Dose Aspirin) 81 mg PO DAILY cholecalciferol (vitamin D3) 25 mcg PO DAILY garlic 300 mg PO DAILY ipratropium-albuterol 20-100 mcg/actuation 1 puff inhalation QID lorazepam 0.5 mg PO Q8H PRN metoprolol succinate ER 25 mg PO DAILY romosozumab-aqqg (Evenity) 210 mg (2.34 mL) subcut .q monthly rosuvastatin 20 mg PO BEDTIME Do you need a note to return to daycare/school/sports/work: No HPI EP Cold/Stuffy (masked) HPI Details Patient presents for a sick visit. Reporting symptoms of sinus congestion, sore throat and difficulty swallowing. Low-grade fever. No family member is sick. No recent travel. Patient reports symptoms of malaise and fatigue. [facility] Medical History (Updated 11/21/22 @ 13:49 by Spencer Marshall MD) Osteoporosis On beta maria d at home Asthma COPD (chronic obstructive pulmonary disease) Hypercholesteremia HTN (hypertension) Positive FIT (fecal immunochemical test) Surgical History History of surgical removal of ganglion cyst Hx of bilateral cataract extraction Hx of colonoscopy Hx of hysterectomy Family History Daughter Parkinson disease Breast cancer Brother Lung cancer Daughter Heart disease Social History Household Members: Family Alcohol intake: never Patient Tobacco Use Status: Current everyday Tobacco user Physical Exam Vital Signs: Last Vital Signs Temp 97.4 F 11/21/22 13:39 Pulse 75 11/21/22 13:39 BP 118/72 11/21/22 13:39 Pulse Ox 95 11/21/22 13:39 Oxygen Delivery Method Room Air 11/21/22 13:39 BMI result Body Mass Index 17.2 Const General: cooperative and healthy appearing Nutritional Appearance: well nourished Orientation/consciousness: patient oriented x3 Limitations: no limitations HEENT Head: Yes normal to inspection Eyes General: appearance normal, both eyes and all related structures Neck Neck: Yes normal visual inspection Chest Chest palpation & inspection: normal palpation of entire chest wall Resp Effort & Inspection: normal respiratory effort Neuro General: patient oriented x3 Assessment & Plan Assessment & Plan (1) Upper respiratory tract infection: Code(s): J06.9 - Acute upper respiratory infection, unspecified Plan: Antibiotics ordered. Increase fluid intake. Tylenol for aches and pains. If symptoms worsen, follow-up here for a recheck. Coding Level of Care Code Est Pt Level 3 (13463) Diagnoses Upper respiratory tract infection J06.9
[2022-11-21 13:39] VITALS: BP 118/72; PULSE 75; TEMP 36.3; O2SAT 95; BMI 17.2
== END 2022-11-21 14:15 | disposition home or self-care (01) ==
PROVIDERS: PCP Internal Medicine; Visit Provider Internal Medicine
DX: J06.9 Acute upper respiratory infection, unspecified (principal)
CPT/HCPCS: 99213

== ENCOUNTER 2022-11-29 10:17 | Outpatient (AMB) | payer MEDICARE, SELFPAY ==
--- NOTE | 2022-11-29 10:21 | AM.OFFVISNUR ---
Intake Intake Visit Reasons: Evenity injection Allergies amoxicillin [AMOXICILLIN] Allergy (Intermediate, Verified 11/21/22 13:48) ITCHY EYES/RASH codeine [CODEINE] Allergy (Unknown, Verified 11/21/22 13:48) RASH zocor Allergy (Unknown, Uncoded 11/21/22 13:48) muscle pain Nursing Note This was the 1st injection of Evenity for this patient. We went over the possibility of injection site reactions including minor swelling. Patient scheduled for 2nd dose on January 02 @10am. Office Meds romosozumab-aqqg 210 mg/2.34 mL(105 mg/1.17 mL x2)subcutaneous syringe Performing Provider: Juwan Davis MD Performing Location: [facility] [place] Administered by: Uli Dent RN on 11/29/22 10:21 Dose Route Admin Location Dispensed Lot Number Expiration Date [place] Pcat Instructor 210 mg subcut L and R arm 2.34 mL [id number] 11/05/24 [facility] Comments: Coding Assessment & Plan Assessment & Plan Orders: Orders AMB Romosozumab Injection Patient Supplied Today M81.0 - Age-related osteoporosis without current pathological fracture
== END 2022-11-29 10:32 | disposition home or self-care (01) ==
PROVIDERS: PCP Internal Medicine; Visit Provider Internal Medicine Endocrinology, Diabetes & Metabolism
DX: M81.0 Age-related osteoporosis without current pathological fracture (principal)

== ENCOUNTER → 2022-11-29 10:17 | Outpatient (BNVA) | payer MEDICARE, SELFPAY | PROVIDERS: PCP Internal Medicine; Visit Provider Internal Medicine Endocrinology, Diabetes & Metabolism | DX: M81.0 Age-related osteoporosis without current pathological fracture (principal) | CPT/HCPCS: 96372; J3111 ==

== ENCOUNTER 2023-01-02 07:09 | Outpatient (REF) | payer MEDICARE, SELFPAY ==
[2023-01-02 11:25] LABS: MANUAL DIFF FLAG NO
[2023-01-02 11:45] LABS: Basophils Percent Auto 0.5 % (0-2); Eosinophils Absolute Auto 0.1 X10*3/uL (0.0-0.4); Eosinophils Percent Auto 1.3 % (0-4); Hematocrit 47.3 % (37.0-47.0); Hemoglobin 15.1 g/dl (12.0-16.0); Imm Gran Abs Auto 0.03 X10*3/uL (0.00-0.03); Imm Gran Pct Auto 0.4 % (0.0-0.4); Mean Corpuscular HGB Conc 31.9 g/dl (31.0-35.0); Mean Corpuscular Hemoglobin 29.1 pg (27.0-33.0); Mean Corpuscular Volume 91.1 fL (80.0-98.0); Mean Platelet Volume 10.5 fL (9.4-12.3); Monocytes Absolute Auto 0.5 X10*3/uL (0.1-1.2); Monocytes Percent Auto 6.9 % (2-11); Neutrophils Percent Auto 64.9 % (45-73); Platelet Count 267 X10*3/uL (160-400); Red Blood Count 5.19 X10*6/uL (4.20-5.50); Red Cell Distribution Width 14.5 % (11.0-16.0); White Blood Count 7.7 X10*3/uL (4.8-10.8)
[2023-01-02 11:50] LABS: Alanine Aminotransferase 11 U/L (0-31); Albumin Level 3.8 g/dL (3.5-5.0); Alkaline Phosphatase 81 U/L (39-117); Anion Gap 9 (12-20); Aspartate Amino Transferase 19 U/L (5-31); Bilirubin Total 0.7 mg/dL (0.0-1.0); Blood Urea Nitrogen 10 mg/dL (9-16); Calcium 8.8 mg/dL (8.4-10.2); Carbon Dioxide 31 mmol/L (22-29); Chloride 107 mmol/L (96-108); Cholesterol 181 mg/dL (<200); Estimated Glomerular Filt Rate > 60; Glucose Random 92 mg/dL (60-115); HDL Cholesterol 68 mg/dL (>40); LDL Cholesterol Calculated 95 mg/dL (<100); Potassium 4.3 mmol/L (3.3-5.1); Sodium 143 mmol/L (135-145); Total Protein 6.6 g/dL (6.5-8.0); Triglycerides 91 mg/dL (<150)
[2023-01-02 11:50] LABS: Appearance Urine Cloudy; Color Urine Yellow; Glucose Urine UA Negative (Negative); Leukocyte Esterase Urine Negative (Negative); Nitrite Urine Negative (Negative); PH 7.5 (5.0-9.0); Specific Gravity - Urine <= 1.005 (1.005-1.025); UMIC TRIGGER UACC YES; Urine Blood Trace (Negative); Urine Ketones Negative (Negative); Urine Protein Negative (Neg-Trace)
[2023-01-02 11:54] LABS: Bacteria Urine None Seen (None Seen); Hyaline Casts Urine 0-2 /LPF (0-2); Squamous Epithelial Cell Urine 0-2 /HPF (0-2); WBC Urine 0-5 /HPF (0-5)
[2023-01-02 12:09] LABS: TSH reflex Free T4 0.47 uIU/mL (0.32-4.0)
== END 2023-01-02 07:10 | disposition home or self-care (01) ==
LOC: HO.HMGCLDS 07:09
PROVIDERS: PCP Internal Medicine; Visit Provider Internal Medicine
DX: E78.00 Pure hypercholesterolemia, unspecified (principal); E55.9 Vitamin D deficiency, unspecified; I10 Essential (primary) hypertension; R35.1 Nocturia
CPT/HCPCS: 36415; 80053; 80061; 81001; 82306; 84443; 85025

== ENCOUNTER 2023-01-04 09:48 | Outpatient (AMB) | payer MEDICARE, SELFPAY ==
--- NOTE | 2023-01-04 09:57 | AM.OFFVISNUR ---
Intake Intake Visit Reasons: Evenity Injection Allergies amoxicillin [AMOXICILLIN] Allergy (Intermediate, Verified 11/21/22 13:48) ITCHY EYES/RASH codeine [CODEINE] Allergy (Unknown, Verified 11/21/22 13:48) RASH zocor Allergy (Unknown, Uncoded 11/21/22 13:48) muscle pain Office Meds romosozumab-aqqg 210 mg/2.34 mL(105 mg/1.17 mL x2)subcutaneous syringe Performing Provider: Juwan Davis MD Performing Location: [facility] [place] Endocr[place]ology Administered by: Uli Dent RN on 01/04/23 09:57 Dose Route Admin Location Dispensed Lot Number Expiration Date [facility] Cad Detailer 210 mg subcut L and R arms 2.34 mL [id number] 03/08/25 [facility] Comments: Patient consented for the Evenity injections. Uploaded to chart. Patient c/o dizziness for a few hours after the injection, but no further side effects. Coding Assessment & Plan Assessment & Plan Orders: Orders AMB Romosozumab Injection Patient Supplied Today M81.0 - Age-related osteoporosis without current pathological fracture
== END 2023-01-04 10:07 | disposition home or self-care (01) ==
PROVIDERS: PCP Internal Medicine; Visit Provider Internal Medicine Endocrinology, Diabetes & Metabolism
DX: M81.0 Age-related osteoporosis without current pathological fracture (principal)

== ENCOUNTER → 2023-01-04 09:48 | Outpatient (BNVA) | payer MEDICARE, SELFPAY | PROVIDERS: PCP Internal Medicine; Visit Provider Internal Medicine Endocrinology, Diabetes & Metabolism | DX: M81.0 Age-related osteoporosis without current pathological fracture (principal) | CPT/HCPCS: 96372; J3111 ==

== ENCOUNTER 2023-03-14 13:37 | Outpatient (AMB) | payer MEDICARE, SELFPAY ==
--- NOTE | 2023-03-14 15:10 | AM.OFFVISNUR ---
Intake Intake Visit Reasons: Evenity Allergies amoxicillin [AMOXICILLIN] Allergy (Intermediate, Verified 03/14/23 13:45) ITCHY EYES/RASH codeine [CODEINE] Allergy (Unknown, Verified 03/14/23 13:45) RASH zocor Allergy (Unknown, Uncoded 11/21/22 13:48) muscle pain Office Meds romosozumab-aqqg 210 mg/2.34 mL(105 mg/1.17 mL x2)subcutaneous syringe Performing Provider: Juwan Davis MD Performing Location: [facility] [place] Endocrinology Administered by: Saba Shah LPN on 03/14/23 15:10 Dose Route Admin Location Dispensed Lot Number Expiration Date NDC Technical Data Analyst 210 mg subcut Both upper arms 2.34 mL [id number] 04/05/25 [facility] Coding Assessment & Plan Assessment & Plan Orders: Orders AMB Romosozumab Injection Patient Supplied Today M81.0 - Age-related osteoporosis without current pathological fracture
== END 2023-03-14 14:43 | disposition home or self-care (01) ==
PROVIDERS: PCP Internal Medicine; Visit Provider Internal Medicine Endocrinology, Diabetes & Metabolism
DX: M81.0 Age-related osteoporosis without current pathological fracture (principal)

== ENCOUNTER 2023-03-14 13:37 | Outpatient (AMB) | payer MEDICARE, SELFPAY ==
[2023-03-14 13:40] VITALS: BP 140/78; PULSE 66; BMI 18.2
--- NOTE | 2023-03-14 13:40 | A.OFFVIS_ITS ---
Intake Vital Signs 03/14/23 13:40 Height 5 ft 2 in Weight 99 lb 6.856 oz BMI 18.2 BP 140/78 H Blood Pressure Location Lt brachial Position Sitting Pulse 66 Pulse Source Pulse Oximeter Intake Visit Reasons: Osteoporosis-confirmed Intake Note: Patient presents today for Osteoporosis follow up. 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 First diagnosed in this yr . Not Received treatment in the past No history of pathologic fracture or ONJ. Has few servings of dietary calcium per day in the form of milh and cheese . Not Takes Calcium supplement . Takes 1000 IU of Vitamin D daily. Denies ever using PPI, anticoagulant, antiepileptic or glucocorticoid medication. 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 UTD on dental cleanings and sees dentist every 6 months. No planned upcoming dental work or extractions. DXA dated 05/27/2022 :[facility] [address] [place] [address] Mammography Report Signed Patient: Kassidy Morfin Follow Up: Procedure(s): XR DEXA axial skeleton Accession Number(s): [id number] cc: Nino Jackson MD~ EXAMINATION: BONE DENSITOMETRY CLINICAL INDICATION: Postmenopausal. COMPARISON: Previous BD dated 10/06/2016 and baseline BD dated 07/11/2006. TECHNIQUE: Using a Handle DXA System (software version: 13.1) manufactured by [employer], eddie l-energy x-ray absorptiometry was performed of the lumbar spine and left hip. The images are of good technical quality. Summary results are attached. FINDINGS: AP SPINE L1-L4: Current: BMD 0.813 g/cm2, Z-score -0.5, T-score -3.1, osteoporosis, 11.3% decrease from previous, 18.6% decr ease from baseline (<5% change is not significant). Prior: BMD 0.917 g/cm2. Baseline: BMD 0.999 g/cm2. LEFT FEMUR, NECK: Current: BMD 0.657 g/cm2, Z-score 0.0, T-score -2.7, osteoporosis. Prior: BMD 0.682 g/cm2. Baseline: BMD 0.793 g/cm2. LEFT FEMUR, TOTAL: Current: BMD 0.615 g/cm2, Z-score -0.4, T-score -3.1, osteoporosis, 10.6% decrease from previous, 26.8% decr ease from baseline (<5% change is not significant). Prior: BMD 0.688 g/cm2. Baseline: BMD 0.840 g/cm2. IDENTIFIED RISK FACTORS: Early menopause, secondary osteoporosis, tobacco use (current smoker), hysterectomy, bilateral oophorectomy. HISTORY OF FRACTURE: None listed. MEDICATIONS: Vitamin D. MM/XR DEXA axial skeleton IMPRESSION: 1. DIAGNOSIS: Osteoporosis based on the lowest T-score value of -3.1 in the total femur and lumbar spine applying World Health Organization Labs: Secondary workup was negative. Currently on Evenity 4 th injection . No fx since last visit [facility] Medical History (Updated 11/21/22 @ 13:49 by Spencer Marshall MD) Osteoporosis On beta maria d at home Asthma COPD (chronic obstructive pulmonary disease) Hypercholesteremia HTN (hypertension) Positive FIT (fecal immunochemical test) Surgical History History of surgical removal of ganglion cyst Hx of bilateral cataract extraction Hx of colonoscopy Hx of hysterectomy Family History Daughter Parkinson disease Breast cancer Brother Lung cancer Daughter Heart disease Social History Household Members: Family Alcohol intake: never Patient Tobacco Use Status: Current everyday Tobacco user Physical Exam Vital Signs: Last Vital Signs Pulse 66 03/14/23 13:40 BP 140/78 H 03/14/23 13:40 BMI result Body Mass Index 18.2 Assessment & Plan Assessment & Plan (1) Osteoporosis: Code(s): M81.0 - Age-related osteoporosis without current pathological fracture Plan: This is a 82-year-old white female with a history of osteoporosis with partial secondary workup. Plan is to continue the [facility] Coding Level of Care Code Est Pt Level 3 (49399) Diagnoses Osteoporosis M81.0
== END 2023-03-14 14:25 | disposition home or self-care (01) ==
PROVIDERS: PCP Internal Medicine; Visit Provider Internal Medicine Endocrinology, Diabetes & Metabolism
DX: M81.0 Age-related osteoporosis without current pathological fracture (principal)
CPT/HCPCS: 99213

== ENCOUNTER → 2023-03-14 13:37 | Outpatient (BNVA) | payer MEDICARE, SELFPAY | PROVIDERS: PCP Internal Medicine; Visit Provider Internal Medicine Endocrinology, Diabetes & Metabolism | DX: M81.0 Age-related osteoporosis without current pathological fracture (principal) | CPT/HCPCS: 96372; 99212; J3111 ==

== ENCOUNTER 2023-04-21 08:19 | Outpatient (REF) | payer MEDICARE, SELFPAY ==
[2023-04-21 10:22] LABS: Appearance Urine Clear; Color Urine Yellow; Glucose Urine UA Negative (Negative); Leukocyte Esterase Urine Negative (Negative); Nitrite Urine Negative (Negative); Specific Gravity - Urine 1.015 (1.005-1.025); UMIC TRIGGER UACC YES; Urine Blood Small (1+) (Negative); Urine Ketones Negative (Negative); Urine Protein Negative (Neg-Trace)
[2023-04-21 10:26] LABS: Bacteria Urine None Seen (None Seen); Hyaline Casts Urine 0-2 /LPF (0-2); Squamous Epithelial Cell Urine 0-2 /HPF (0-2); WBC Urine 0-5 /HPF (0-5)
[2023-04-21 10:39] LABS: MANUAL DIFF FLAG NO
[2023-04-21 10:43] LABS: Basophils Absolute Auto 0.1 X10*3/uL (0.0-0.2); Basophils Percent Auto 0.6 % (0-2); Eosinophils Absolute Auto 0.1 X10*3/uL (0.0-0.4); Hematocrit 46.4 % (37.0-47.0); Hemoglobin 15.3 g/dl (12.0-16.0); Imm Gran Abs Auto 0.01 X10*3/uL (0.00-0.03); Imm Gran Pct Auto 0.1 % (0.0-0.4); Lymphocytes Absolute Auto 2.5 X10*3/uL (1.2-4.9); Lymphocytes Percent Auto 31.5 % (20-40); Mean Corpuscular Hemoglobin 29.8 pg (27.0-33.0); Mean Corpuscular Volume 90.4 fL (80.0-98.0); Mean Platelet Volume 10.1 fL (9.4-12.3); Monocytes Absolute Auto 0.6 X10*3/uL (0.1-1.2); Monocytes Percent Auto 7.7 % (2-11); Neutrophils Absolute Auto 4.6 x10*3/uL (2.0-8.3); Neutrophils Percent Auto 59.1 % (45-73); Platelet Count 264 X10*3/uL (160-400); Red Blood Count 5.13 X10*6/uL (4.20-5.50); Red Cell Distribution Width 13.3 % (11.0-16.0); White Blood Count 7.8 X10*3/uL (4.8-10.8)
[2023-04-21 10:53] LABS: Estimated Average Glucose 123 mg/dL; Hemoglobin A1c % 5.9 % (<6.0)
[2023-04-21 11:21] LABS: Alanine Aminotransferase 9 U/L (0-31); Albumin Level 3.9 g/dL (3.5-5.0); Alkaline Phosphatase 84 U/L (39-117); Anion Gap 11 (12-20); Aspartate Amino Transferase 17 U/L (5-31); Bilirubin Total 0.7 mg/dL (0.0-1.0); Blood Urea Nitrogen 8 mg/dL (9-16); Carbon Dioxide 31 mmol/L (22-29); Chloride 106 mmol/L (96-108); Cholesterol 173 mg/dL (<200); Estimated Glomerular Filt Rate > 60; Glucose Random 89 mg/dL (60-115); HDL Cholesterol 68 mg/dL (>40); LDL Cholesterol Calculated 90 mg/dL (<100); Potassium 3.7 mmol/L (3.3-5.1); Sodium 144 mmol/L (135-145); Total Protein 6.6 g/dL (6.5-8.0); Triglycerides 75 mg/dL (<150); Vitamin D 25-OH Total 67.9 ng/mL (>30)
== END 2023-04-21 08:20 | disposition home or self-care (01) ==
LOC: HO.HMGCLDS 08:19
PROVIDERS: PCP Internal Medicine; Visit Provider Internal Medicine
DX: I10 Essential (primary) hypertension (principal); R73.01 Impaired fasting glucose; N39.46 Mixed incontinence; E78.00 Pure hypercholesterolemia, unspecified
CPT/HCPCS: 36415; 80053; 80061; 81001; 82306; 83036; 85025

== ENCOUNTER 2023-04-28 10:23 | Outpatient (REF) | payer MEDICARE, SELFPAY ==
--- NOTE | ~2023-04-28 | MM_ITS ---
EXAMINATION: MM SCREENING DIGITAL BREAST TOMOSYNTHESIS, BILATERAL CLINICAL INFORMATION: Screening. Asymptomatic. COMPARISON: Mammography: 03/15/2022, 03/11/2021, and dating back to 2012. TECHNIQUE: Digital breast tomosynthesis is performed in both the craniocaudal and mediolateral oblique views along with computer-aided detection (CAD). Synthesized 2D images are generated from the tomosynthesis. FINDINGS: The breasts are extremely dense, which lowers the sensitivity of mammography (ACR BI-RADS breast composition Category d). There are several bilateral skin lesions which have been marked by the technologist. There are a few benign skin calcifications noted. Parenchymal pattern is extremely dense but overall stable from prior exams without obvious change. No definite suspicious mass, suspicious grouped calcifications, or regions of architectural distortion identified in either breast. MM/MM tomosynthesis screening BI IMPRESSION: No mammographic evidence of malignancy. No Significant change. ASSESSMENT: BI-RADS BI-RADS 2 - Benign Findings RECOMMENDATION: Routine annual mammography screening. 1 year F/U This examination should not preclude the clinical evaluation of a suspicious palpable abnormality. This patient's information was entered into a reminder system with a target due date for their next mammogram.
== END 2023-04-28 10:24 | disposition home or self-care (01) ==
LOC: HO.MAMMO 10:23
PROVIDERS: PCP Internal Medicine; Visit Provider Internal Medicine
DX: Z12.31 Encounter for screening mammogram for malignant neoplasm of breast (principal)
CPT/HCPCS: 77063; 77067

== ENCOUNTER → 2023-04-28 10:45 | Outpatient (BNV) | payer MEDICARE, SELFPAY | PROVIDERS: PCP Internal Medicine; Visit Provider Radiology Diagnostic Radiology | DX: Z12.31 Encounter for screening mammogram for malignant neoplasm of breast (principal) | CPT/HCPCS: 77063; 77067 ==

== ENCOUNTER 2023-11-03 07:26 | Outpatient (REF) | payer MEDICARE, SELFPAY ==
[2023-11-03 10:08] LABS: MANUAL DIFF FLAG NO
[2023-11-03 10:12] LABS: Basophils Absolute Auto 0.1 X10*3/uL (0.0-0.2); Basophils Percent Auto 0.7 % (0-2); Eosinophils Absolute Auto 0.1 X10*3/uL (0.0-0.4); Eosinophils Percent Auto 0.9 % (0-4); Hematocrit 48.1 % (37.0-47.0); Hemoglobin 15.8 g/dl (12.0-16.0); Imm Gran Abs Auto 0.01 X10*3/uL (0.00-0.03); Imm Gran Pct Auto 0.1 % (0.0-0.4); Lymphocytes Absolute Auto 2.1 X10*3/uL (1.2-4.9); Lymphocytes Percent Auto 31.4 % (20-40); Mean Corpuscular HGB Conc 32.8 g/dl (31.0-35.0); Mean Corpuscular Hemoglobin 30.3 pg (27.0-33.0); Mean Corpuscular Volume 92.1 fL (80.0-98.0); Mean Platelet Volume 10.1 fL (9.4-12.3); Monocytes Absolute Auto 0.4 X10*3/uL (0.1-1.2); Monocytes Percent Auto 6.5 % (2-11); Neutrophils Absolute Auto 4.1 x10*3/uL (2.0-8.3); Neutrophils Percent Auto 60.4 % (45-73); Platelet Count 241 X10*3/uL (160-400); Red Blood Count 5.22 X10*6/uL (4.20-5.50); Red Cell Distribution Width 13.8 % (11.0-16.0); White Blood Count 6.8 X10*3/uL (4.8-10.8)
[2023-11-03 10:17] LABS: Prothrombin Time 11.1 SEC (10.9-12.4)
[2023-11-03 10:28] LABS: Alanine Aminotransferase 15 U/L (0-31); Albumin Level 3.9 g/dL (3.5-5.0); Alkaline Phosphatase 59 U/L (39-117); Anion Gap 11 (12-20); Aspartate Amino Transferase 21 U/L (5-31); Bilirubin Total 0.7 mg/dL (0.0-1.0); Blood Urea Nitrogen 14 mg/dL (9-16); Calcium 9.3 mg/dL (8.4-10.2); Carbon Dioxide 32 mmol/L (22-29); Chloride 104 mmol/L (96-108); Estimated Glomerular Filt Rate > 60; Glucose Random 94 mg/dL (60-115); Potassium 3.7 mmol/L (3.3-5.1); Sodium 143 mmol/L (135-145); Total Protein 6.6 g/dL (6.5-8.0)
[2023-11-08 04:30] LABS: NT-proBNP 765 pg/mL (<450)
== END 2023-11-03 07:27 | disposition home or self-care (01) ==
LOC: HO.HMGCLDS 07:26
PROVIDERS: PCP Internal Medicine; Visit Provider Internal Medicine
DX: J44.9 Chronic obstructive pulmonary disease, unspecified (principal); I10 Essential (primary) hypertension; R06.09 Other forms of dyspnea; Z79.01 Long term (current) use of anticoagulants
CPT/HCPCS: 36415; 80053; 83880; 85025; 85610

== ENCOUNTER 2023-11-08 09:03 | Outpatient (REF) | payer MEDICARE, SELFPAY ==
--- NOTE | ~2023-11-08 | MR_ITS ---
EXAMINATION: MR BRAIN WITHOUT CONTRAST CLINICAL INFORMATION: Memory loss. COMPARISON: CT head dated August 04, 2019. TECHNIQUE: MRI of the brain was obtained using routine sequences without contrast. FINDINGS: There is no area of abnormal restricted diffusion to indicate an acute/subacute cerebral or cerebellar infarction. There is no acute intracranial hemorrhage. There is extensive microvascular ischemic change. There is no midline shift or mass effect. There is no extra-axial fluid collection. There is moderate global cerebral volume loss. No hydrocephalus. The flow voids at the base of the brain are maintained. The ocular lenses are surgically absent. The orbits are otherwise unremarkable. There is minimal ethmoid air cell mucosal thickening. The mastoid air cells are clear. There are multiple T2 hyperintense foci within the calvarium, the largest within the right frontal region measuring 1.2 x 1.3 cm. These lesions are not well seen on T1-weighted sequence. They may represent intraosseous hemangiomas. They correlate with areas of lucency seen on CT head dated August 04, 2019. MR/MR head/brain wo con IMPRESSION: No acute intracranial abnormality. Extensive microvascular ischemic disease. Moderate global cerebral volume loss. Electronically signed by: Miguel Ramos DO 11/27/2023 10:08 AM EDT
== END 2023-11-08 09:04 | disposition home or self-care (01) ==
LOC: HO.MRI 09:03
PROVIDERS: PCP Internal Medicine; Visit Provider Internal Medicine
DX: R41.3 Other amnesia (principal); R51.9 Headache, unspecified
CPT/HCPCS: 70551

== ENCOUNTER 2023-11-28 10:03 | Outpatient (REF) | payer MEDICARE, SELFPAY ==
[2023-11-28 11:40] LABS: D Dimer High Sensitivity < 150 NG/ML
[2023-11-28 12:19] LABS: Anion Gap 10 (12-20); Blood Urea Nitrogen 15 mg/dL (9-16); Calcium 9.4 mg/dL (8.4-10.2); Carbon Dioxide 33 mmol/L (22-29); Chloride 104 mmol/L (96-108); Estimated Glomerular Filt Rate > 60; Glucose Random 78 mg/dL (60-115); Sodium 143 mmol/L (135-145)
== END 2023-11-28 10:04 | disposition home or self-care (01) ==
LOC: HO.LAB 10:03
PROVIDERS: PCP Internal Medicine; Visit Provider Internal Medicine
DX: I10 Essential (primary) hypertension (principal)
CPT/HCPCS: 36415; 80048; 85379

== ENCOUNTER 2023-12-26 13:12 | Outpatient (AMB) | payer MEDICARE, SELFPAY ==
[2023-12-26 13:14] VITALS: BP 132/76; PULSE 74; O2SAT 94; BMI 16.5
--- NOTE | 2023-12-26 13:14 | MHC.OFFVIS ---
Vital Signs 12/26/23 13:14 Height 5 ft 2 in Weight 90 lb 6.232 oz BMI 16.5 BP 132/76 Blood Pressure Location Rt brachial Position Sitting Pulse 74 Pulse Source Pulse Oximeter Pulse Oximetry (%) 94 Oxygen Delivery Method Room Air Intake Visit Reasons: + stool fit test Intake Note: Relevant Flags or Indicators ? Requires Paving Inspector? Vipul Kassidy presents in office today for a scheduled consultation to re-establish care. Pt last seen as of 2021. CC; Pt recently had + FIT test. Pt has previous hx of positive FIT test (2021). See referral from PCP. Relevant GI Sx as reported per pt? Reflux ? Abdominal Pain - epigastric ? Hx of any recent surgeries? None Accompanied by: Daughter Allergies amoxicillin [AMOXICILLIN] Allergy (Intermediate, Verified 12/26/23 13:15) ITCHY EYES/RASH codeine [CODEINE] Allergy (Unknown, Verified 12/26/23 13:15) RASH zocor Allergy (Unknown, Uncoded 11/21/22 13:48) muscle pain HPI HPI + stool fit test: Details: LAST VISIT 11/30/2021 IBS (irritable bowel syndrome) Discussed with patient avoiding dietary triggers. FODMAP diet addressed with her. Patient was encouraged to eat smaller meals and more often. Senokot was causing too much diarrhea for patient. We will start her on docusate sodium. Patient was encouraged to take Citrucel to help her bulk her stools. Abdominal bloating Discussed with patient the importance of doing her blood work and checking for pancreatic insufficiency. Patient continues to have abdominal bloating and she has lost some weight. She will go for colonoscopy that is scheduled this month. Discussed with patient will to expect before during and after colonoscopy. Clear liquid diet and how to prep day before the procedure discussed with patient. Patient is agreeable to this plan and verbalizes understanding of instructions. She was given the opportunity to ask questions and all questions answered. ? Thank you for allowing me to participate in her care Plan Medications New bisacodyl (Dulcolax (bisacodyl)) take 2 tabs at noon the day before your colonoscopy 10 mg (2 x 5 mg) PO ONCE 2 tabs 0RF 1 day Z12.11 polyethylene glycol 3350 (Miralax) As directed by gastroenterology department at [facility] 238 grams PO ONCE 238 grams 0RF Z12.11 docusate sodium 100 mg PO BEDTIME 90 caps 3RF K59.00 Discontinued sennosides Discontinued Reason: Doctor's Order 8.6 mg PO BEDTIME 90 tabs 3RF constipation K59.00 TODAY'S VISIT Patient is here today for follow-up. Last time I have seen her it was back in November of 2021. Patient was supposed to go for colonoscopy, however some how colonoscopy was never performed. Patient reports that she was hospitalized for stroke-like symptoms. Patient denies any melena, hematochezia, unintentional weight loss or ribbon like stools. Patient had her blood work done and she does not have anemia. Normal H&H. Patient does report that she has had significant reflux depending on what she eats. Previously patient had positive fit test hence sending her for colonoscopy at that time. Fit test repeated by PCP and positive again. [facility] Medical History Osteoporosis On beta maria d at home Asthma COPD (chronic obstructive pulmonary disease) Hypercholesteremia HTN (hypertension) Positive FIT (fecal immunochemical test) Surgical History History of surgical removal of ganglion cyst Hx of hysterectomy Hx of bilateral cataract extraction Hx of colonoscopy Family History Daughter Parkinson disease Breast cancer Brother Lung cancer Daughter Heart disease Social History Household Members: Family Alcohol intake: never Patient Tobacco Use Status: Current everyday Tobacco user Review of Systems Const Denies weight gain and Denies weight loss ENT Reports no additional complaints, Denies dysphagia and Denies odynophagia Card Reports no additional complaints Resp Reports no additional complaints GI Denies abdominal pain, Denies belching, Denies melena, Denies bloating, Denies change in bowel habits, Denies dysphagia, Denies excessive flatus, Denies dyspepsia, Reports heartburn, Denies diarrhea, Denies loose stools, Denies nausea, Denies odynophagia and Denies vomiting Reports no additional complaints Musc Reports no additional complaints Neuro Reports no additional complaints Psych Reports no additional complaints Endo Reports no additional complaints Physical Exam Vital Signs: Last Vital Signs Pulse 74 12/26/23 13:14 BP 132/76 12/26/23 13:14 Pulse Ox 94 12/26/23 13:14 Oxygen Delivery Method Room Air 12/26/23 13:14 BMI result Body Mass Index 16.5 Const General: healthy appearing, no acute distress and well developed Nutritional Appearance: well nourished Orientation/consciousness: patient oriented x3 Resp Effort & Inspection: normal respiratory effort, able to speak in complete sentences, no tracheal deviation and symmetric chest movement Auscultation: clear to auscultation bilaterally Cardio Rate: regular rate GI Inspection: Yes normal to inspection and No distended Palpation (GI): Soft to palpation, not firm, nontender and No hepatosplenomegaly present Auscultation: normal bowel sounds General: Yes no CVA tenderness Back/Spine/Pelvis Back: no CVA tenderness Skin General skin exam: elasticity normal, turgor normal and dry skin Neuro General: patient oriented x3 Psych Appearance: grossly normal Mental Status: mental status grossly normal Assessment & Plan Assessment & Plan (1) Positive FIT (fecal immunochemical test): Code(s): R19.5 - Other fecal abnormalities Category: Medical (2) IBS (irritable bowel syndrome): Code(s): K58.9 - Irritable bowel syndrome, unspecified Qualifiers: Irritable bowel syndrome type: without diarrhea Qualified Code(s): K58.9 - Irritable bowel syndrome, unspecified (3) Abdominal bloating: Code(s): R14.0 - Abdominal distension (gaseous) (4) GERD (gastroesophageal reflux disease): Code(s): K21.9 - Gastro-esophageal reflux disease without esophagitis Qualifiers: Esophagitis presence: esophagitis presence not specified Qualified Code(s): K21.9 - Gastro-esophageal reflux disease without esophagitis Plan Patient will start taking pantoprazole 20 mg, she will return for H pylori testing. Follow-up in 5-6 weeks. Will set up patient for upper endoscopy and colonoscopy. Avoid dietary triggers and late night snacking. Staying upright for minimum 3 hours after meals discussed with patient. Increase fluid intake and activity to promote better bowel motility. Patient will increase protein and calorie intake. Both patient and her daughter are agreeable to plan of care and verbalizes understanding of instructions. They were given the opportunity to ask questions and all questions answered. Thank you for allowing me to participate in her care Medications: New pantoprazole 20 mg PO DAILY 30 tabs 3RF Coding Level of Care Code Est Pt Level 4 (33661) Diagnoses Positive FIT (fecal immunochemical test) R19.5 Irritable bowel syndrome without diarrhea K58.9 Irritable bowel syndrome type: without diarrhea Abdominal bloating R14.0 Gastroesophageal reflux disease, unspecified whether esophagitis present K21.9 Esophagitis presence: esophagitis presence not specified Time Spent (min) 35 Comment 20 minutes spent with patient and additional 15 minutes spent reviewing her records
== END 2023-12-26 14:04 | disposition home or self-care (01) ==
PROVIDERS: PCP Internal Medicine; Visit Provider Nurse Practitioner Family
DX: R19.5 Other fecal abnormalities (principal); K58.9 Irritable bowel syndrome, unspecified; R14.0 Abdominal distension (gaseous); K21.9 Gastro-esophageal reflux disease without esophagitis
CPT/HCPCS: 99214

== ENCOUNTER → 2023-12-26 13:12 | Outpatient (BNVA) | payer MEDICARE, SELFPAY | PROVIDERS: PCP Internal Medicine; Visit Provider Nurse Practitioner Family | DX: R19.5 Other fecal abnormalities (principal); R14.0 Abdominal distension (gaseous); K58.9 Irritable bowel syndrome, unspecified; K21.9 Gastro-esophageal reflux disease without esophagitis | CPT/HCPCS: 99212 ==

== ENCOUNTER 2023-12-29 11:56 | Outpatient (REF) | payer MEDICARE, SELFPAY ==
[2023-12-29 12:19] LABS: MANUAL DIFF FLAG NO
[2023-12-29 12:38] LABS: Basophils Percent Auto 0.5 % (0-2); Eosinophils Percent Auto 0.5 % (0-4); Hematocrit 44.2 % (37.0-47.0); Hemoglobin 14.4 g/dl (12.0-16.0); Imm Gran Abs Auto 0.02 X10*3/uL (0.00-0.03); Imm Gran Pct Auto 0.3 % (0.0-0.4); Lymphocytes Absolute Auto 1.8 X10*3/uL (1.2-4.9); Lymphocytes Percent Auto 24.2 % (20-40); Mean Corpuscular HGB Conc 32.6 g/dl (31.0-35.0); Mean Corpuscular Hemoglobin 29.8 pg (27.0-33.0); Mean Corpuscular Volume 91.3 fL (80.0-98.0); Mean Platelet Volume 9.6 fL (9.4-12.3); Monocytes Absolute Auto 0.5 X10*3/uL (0.1-1.2); Monocytes Percent Auto 6.3 % (2-11); Neutrophils Absolute Auto 5.1 x10*3/uL (2.0-8.3); Neutrophils Percent Auto 68.2 % (45-73); Platelet Count 260 X10*3/uL (160-400); Red Blood Count 4.84 X10*6/uL (4.20-5.50); Red Cell Distribution Width 13.4 % (11.0-16.0); White Blood Count 7.5 X10*3/uL (4.8-10.8)
[2023-12-29 13:30] LABS: Alanine Aminotransferase 14 U/L (0-31); Albumin Level 3.9 g/dL (3.5-5.0); Alkaline Phosphatase 62 U/L (39-117); Anion Gap 9 (12-20); Aspartate Amino Transferase 21 U/L (5-31); Bilirubin Total 0.5 mg/dL (0.0-1.0); Blood Urea Nitrogen 15 mg/dL (9-16); Calcium 9.2 mg/dL (8.4-10.2); Carbon Dioxide 33 mmol/L (22-29); Chloride 105 mmol/L (96-108); Estimated Glomerular Filt Rate > 60; Glucose Random 92 mg/dL (60-115); Sodium 143 mmol/L (135-145); Total Protein 6.5 g/dL (6.5-8.0)
== END 2023-12-29 11:57 | disposition home or self-care (01) ==
LOC: HO.LAB 11:56
PROVIDERS: PCP Internal Medicine; Visit Provider Internal Medicine
DX: I10 Essential (primary) hypertension (principal)
CPT/HCPCS: 36415; 80053; 85025

== ENCOUNTER 2024-01-11 10:43 | Outpatient (REF) | payer MEDICARE, SELFPAY ==
[2024-01-14 11:29] LABS: H Pylori Breath Test Positive (Negative)
== END 2024-01-11 10:44 | disposition home or self-care (01) ==
LOC: HO.LNP 10:43
PROVIDERS: Nurse Practitioner; PCP Internal Medicine; Visit Provider Nurse Practitioner Family
DX: R10.10 Upper abdominal pain, unspecified (principal)
CPT/HCPCS: 83013

== ENCOUNTER 2024-01-17 08:01 | Outpatient (AMB) | payer MEDICARE, SELFPAY ==
[2024-01-17 08:04] VITALS: BP 126/68; PULSE 72; O2SAT 94; BMI 16.4
--- NOTE | 2024-01-17 08:04 | MHC.OFFVIS ---
Vital Signs 01/17/24 08:04 Height 5 ft 2 in Weight 89 lb 8.123 oz BMI 16.4 BP 126/68 Blood Pressure Location Lt brachial Position Sitting Pulse 72 Pulse Source Pulse Oximeter Pulse Oximetry (%) 94 Oxygen Delivery Method Room Air Intake Visit Reasons: follow up Intake Note: ESTABLISHED PATIENT Kassidy presents in office today for a scheduled FUV to discuss test results. Meds reviewed? Y Allergies reviewed? Y No recent surgeries? None since prior to last visit. Any significant concerns or new changes? Pt discussing recent test results (+ H Pylori). Pt also took PPI once but stopped taking it due to abd pain / cramping Pharmacy verified? [facility] Catheter Builder Required: No Allergies amoxicillin [AMOXICILLIN] Allergy (Intermediate, Verified 01/17/24 08:13) ITCHY EYES/RASH codeine [CODEINE] Allergy (Unknown, Verified 01/17/24 08:13) RASH zocor Allergy (Unknown, Uncoded 11/21/22 13:48) muscle pain HPI HPI follow up: Details: LAST VISIT Positive FIT (fecal immunochemical test) IBS (irritable bowel syndrome) Abdominal bloating GERD (gastroesophageal reflux disease) Plan Patient will start taking pantoprazole 20 mg, she will return for H pylori testing. Follow-up in 5-6 weeks. Will set up patient for upper endoscopy and colonoscopy. Avoid dietary triggers and late night snacking. Staying upright for minimum 3 hours after meals discussed with patient. Increase fluid intake and activity to promote better bowel motility. Patient will increase protein and calorie intake. Both patient and her daughter are agreeable to plan of care and verbalizes understanding of instructions. They were given the opportunity to ask questions and all questions answered. ? Thank you for allowing me to participate in her care Medications New pantoprazole 20 mg PO DAILY 30 tabs 3RF TODAY'S VISIT Patient is here today for follow-up and to discuss going for colonoscopy due to positive fecal occult blood. Patient reports that when she had the test done she had mild bleeding after bowel movement. Occasional constipation. Currently patient reports that she does not have blood in her stools. Denies melena. Patient is not agreeing to colonoscopy. Family accompanied patient is her daughter and granddaughter. Patient would like the do Cologuard. Patient denies any dyspepsia, dysphagia or odynophagia. She was unable to tolerate pantoprazole. Patient took it only 1 day and had epigastric discomfort. Breath test came back positive for H pylori. Patient denies any epigastric pain or discomfort. Denies any reflux. She continues to be underweight, however family states that patient is eating. Patient is staying with her grandson will is taking care of in preparing meals for her. [facility] Medical History (Updated 01/17/24 @ 09:25 by Cele Giron [facility]) Helicobacter pylori (H. pylori) Osteoporosis On beta maria d at home Asthma COPD (chronic obstructive pulmonary disease) Hypercholesteremia HTN (hypertension) Positive FIT (fecal immunochemical test) Surgical History History of surgical removal of ganglion cyst Hx of hysterectomy Hx of bilateral cataract extraction Hx of colonoscopy Family History Daughter Parkinson disease Breast cancer Brother Lung cancer Daughter Heart disease Social History Household Members: Family Alcohol intake: never Patient Tobacco Use Status: Current everyday Tobacco user Review of Systems Const Denies weight gain and Denies weight loss ENT Reports no additional complaints, Denies dysphagia and Denies odynophagia Card Reports no additional complaints Resp Reports no additional complaints GI Denies abdominal pain, Denies belching, Denies melena, Denies bloating, Denies change in bowel habits, Denies dysphagia, Denies excessive flatus, Denies dyspepsia, Denies heartburn, Denies diarrhea, Denies loose stools, Denies nausea, Denies odynophagia and Denies vomiting Musc Reports no additional complaints Neuro Reports no additional complaints Psych Reports no additional complaints Endo Reports no additional complaints Physical Exam Const General: healthy appearing, no acute distress and well developed Nutritional Appearance: underweight Orientation/consciousness: patient oriented x3 Resp Effort & Inspection: normal respiratory effort, able to speak in complete sentences, no tracheal deviation and symmetric chest movement Auscultation: clear to auscultation bilaterally Cardio Rate: regular rate GI Inspection: Yes normal to inspection and No distended Palpation (GI): Soft to palpation, not firm, nontender and No hepatosplenomegaly present Auscultation: normal bowel sounds General: Yes no CVA tenderness Back/Spine/Pelvis Back: no CVA tenderness Skin General skin exam: elasticity normal, turgor normal and dry skin Neuro General: patient oriented x3 Psych Appearance: grossly normal Mental Status: mental status grossly normal Assessment & Plan Assessment & Plan (1) Upper abdominal pain: Code(s): R10.10 - Upper abdominal pain, unspecified Category: Medical (2) Positive FIT (fecal immunochemical test): Code(s): R19.5 - Other fecal abnormalities Category: Medical (3) Helicobacter pylori (H. pylori): Code(s): A04.8 - Other specified bacterial intestinal infections Category: Medical (4) IBS (irritable bowel syndrome): Code(s): K58.9 - Irritable bowel syndrome, unspecified Qualifiers: Irritable bowel syndrome type: without diarrhea Qualified Code(s): K58.9 - Irritable bowel syndrome, unspecified (5) GERD (gastroesophageal reflux disease): Code(s): K21.9 - Gastro-esophageal reflux disease without esophagitis Qualifiers: Esophagitis presence: esophagitis presence not specified Qualified Code(s): K21.9 - Gastro-esophageal reflux disease without esophagitis (6) Abdominal bloating: Code(s): R14.0 - Abdominal distension (gaseous) (7) Weight loss, unintentional: Code(s): R63.4 - Abnormal weight loss Plan Weight loss of 15 lb in the last couple years. Patient admits that she eats and has good appetite. Family states that they will help her eat more calories, more protein. Patient will get fairlife whole milk. Patient will try to get protein powder to put in her milk. Positive H pylori. Will try Pylera combination is patient will not be able to manage for different medications to treat this. RN is to do PA. will switch PPI to omeprazole. Patient will follow-up in our office in 2 months to re-evaluate. We will send Cologuard, however discussed with patient if that comes back positive we will strongly encourage her to have a colonoscopy. Patient agreed. I would like to send her also for endoscopy to check for gastritis, esophagitis. Patient is agreeable to plan of care and verbalizes understanding of instructions. She was given the opportunity to ask questions and all questions answered. Thank you for allowing me to participate in her care Medications: New omeprazole 20 mg PO DAILY 30 caps 3RF K21.9 - Gastro-esophageal reflux disease without esophagitis bismuth subcit [id number] 140-125-125 mg (Pylera) 3 caps PO QID 14 days 168 caps 0RF B96.81 - Helicobacter pylori [H. pylori] as the cause of diseases classified elsewhere, K29.70 - Gastritis, unspecified, without bleeding ondansetron 4 mg PO Q8H PRN 30 tabs 0RF nausea and vomiting Coding Level of Care Code Est Pt Level 4 (04465) Complex EM visit Add On G2211 Diagnoses Upper abdominal pain R10.10 Positive FIT (fecal immunochemical test) R19.5 Helicobacter pylori (H. pylori) A04.8 Irritable bowel syndrome without diarrhea K58.9 Irritable bowel syndrome type: without diarrhea Gastroesophageal reflux disease, unspecified whether esophagitis present K21.9 Esophagitis presence: esophagitis presence not specified Abdominal bloating R14.0 Weight loss, unintentional R63.4 Time Spent (min) 35 Comment 20 minutes spent with patient and additional 15 minutes spent reviewing her records
== END 2024-01-17 09:06 | disposition home or self-care (01) ==
PROVIDERS: PCP Internal Medicine; Visit Provider Nurse Practitioner Family
DX: R10.10 Upper abdominal pain, unspecified (principal); R19.5 Other fecal abnormalities; A04.8 Other specified bacterial intestinal infections; K58.9 Irritable bowel syndrome, unspecified; K21.9 Gastro-esophageal reflux disease without esophagitis; R14.0 Abdominal distension (gaseous); R63.4 Abnormal weight loss
CPT/HCPCS: 99214; G2211

== ENCOUNTER → 2024-01-17 08:01 | Outpatient (BNVA) | payer MEDICARE, SELFPAY | PROVIDERS: PCP Internal Medicine; Visit Provider Nurse Practitioner Family | DX: R19.5 Other fecal abnormalities (principal); R10.10 Upper abdominal pain, unspecified; K58.9 Irritable bowel syndrome, unspecified; A04.8 Other specified bacterial intestinal infections; R14.0 Abdominal distension (gaseous); K21.9 Gastro-esophageal reflux disease without esophagitis; R63.4 Abnormal weight loss | CPT/HCPCS: 99212 ==

== ENCOUNTER 2024-01-26 10:24 | Observation (INO) | payer MEDICARE, SELFPAY ==
[2024-01-26] VITALS (10 sets, daily range): BP systolic 142–182; BP diastolic 76–96; PULSE 64–89; RESP 16–20; TEMP 36.6–37.3; O2SAT 95–99; BMI 17.5; BMI 16.5
--- NOTE | ~2024-01-26 | CT_ITS ---
EXAMINATION: CT HEAD WITHOUT CONTRAST CLINICAL INFORMATION: ams confusion COMPARISON: CT dated July 27, 2019. Correlated to MRI brain dated November 08, 2023. TECHNIQUE: Contiguous axial imaging was performed from the skull base to vertex without intravenous administration of contrast. This CT examination was performed using dose optimization techniques as appropriate, variously including the following: *Automated exposure control *Adjustment of mA and/or kV according to patient size (this includes techniques or standardized protocols for targeted exams where dose is matched to indication/reason for exam; i.e. extremities or head) *Use of iterative reconstruction technique DLP: 595.55 mGy-cm FINDINGS: No acute intracranial hemorrhage, mass effect, midline shift, hydrocephalus or herniation. Bilateral multifocal patchy and confluent deep periventricular white matter hypodensity involving centrum semiovale and trejo radiata. Old lacunar infarcts, extracapsular and basal ganglia. Prominence of the extra-axial spaces pelvis, cerebral sulci and ventricles. Posterior cranial fossa contents constrain no acute intracranial hemorrhage or mass effect. Desiccation seen V4 segments of the vertebral arteries and the cavernous supraclinoid segments both ICA. Bony calvarium is intact. There is a bone marrow inhomogeneity. Tympanic cavities and mastoid cells are aerated. No air-fluid levels in the included paranasal sinuses. CT/CT head/brain wo IV con IMPRESSION: No acute intracranial hemorrhage. Small vessel occlusive disease. Superimposed acute stroke/nonhemorrhagic ischemia cannot be excluded. Global atrophy. Calcium metabolic disorder versus malignancy. Electronically signed by: Robson Jeff MD 01/26/2024 01:52 PM EST
--- NOTE | ~2024-01-26 | MR_ITS ---
EXAMINATION: MR BRAIN WITHOUT CONTRAST CLINICAL INFORMATION: Rule out CVA COMPARISON: MRI brain on 11/08/2023. TECHNIQUE: MRI of the brain was obtained using routine sequences without contrast. FINDINGS: No acute intracranial hemorrhage or infarct. Scattered and confluent periventricular and deep white matter T2/FLAIR hyperintensities, nonspecific however commonly seen with small vessel ischemic disease. Diffuse prominence of the sulci with associated ex vacuo dilation of the ventricles compatible with global cerebral atrophy. No midline shift or hydrocephalus. No acute extra-axial fluid collections. There are multiple foci of T2 hyperintensity scattered through the left greater than right frontal calvarium which demonstrate associated restricted diffusion, unchanged when compared to prior. The pituitary gland, pineal gland and remaining midline structures are unremarkable. Sequela bilateral lens replacement. Otherwise, no acute orbital pathology. The paranasal sinuses and mastoid air cells are clear. MR/MR head/brain wo con IMPRESSION: -No acute intracranial abnormalities. -Chronic microangiopathy and global cerebral atrophy. Electronically signed by: Celi Tyler MD 01/28/2024 09:10 AM DERICK
--- NOTE | ~2024-01-26 | CT_ITS ---
EXAMINATION: CT ABDOMEN AND PELVIS WITH CONTRAST CLINICAL INFORMATION: Change in mental status. Abdominal pain. COMPARISON: CT dated January 16, 2022. TECHNIQUE: Multidetector volumetric images were obtained from the superior aspect of the liver through the pubic symphysis following administration 85 mL of Omnipaque 350 intravenous contrast. Sagittal and coronal reformatted images were obtained on the technologist's workstation. Oral contrast: No This CT examination was performed using dose optimization techniques as appropriate, variously including the following: *Automated exposure control *Adjustment of mA and/or kV according to patient size (this includes techniques or standardized protocols for targeted exams where dose is matched to indication/reason for exam; i.e. extremities or head) *Use of iterative reconstruction technique DLP: 357.46 mGy-cm FINDINGS: . LUNG BASES: Patchy pulmonary groundglass, lingula, right middle lobe and anterior right lower lung lobe. 4 mm calcified pulmonary nodule, left lung base.. LIVER, GALLBLADDER, AND BILIARY TREE: Liver measures 15 cm. Subtle nodular surface. No enhancing lesion. Portal veins, hepatic veins and intrahepatic portion of the IVC are patent. Gallbladder is fluid-filled without pericholecystic fluid collection or gallbladder wall thickening. No intrahepatic or extrahepatic biliary ductal dilatation. PANCREAS: No focal mass. No peripancreatic fluid collection. No main pancreatic ductal dilatation. SPLEEN: 8 cm. Punctate calcification. ADRENAL GLANDS: No nodular lesions. KIDNEYS AND URETERS: Subcentimeter cystic lesions. No renal mass. No hydronephrosis. Normal enhancement of the renal cortex. BLADDER: Fluid-filled. GASTROINTESTINAL TRACT: Abundant stool within the large intestine. Hiatal hernia. No intestinal obstruction pattern. Numerous diverticula in the left hemicolon. No ascites. No pneumoperitoneum. No pneumatosis intestinalis. I do not see the appendix. ABDOMINAL WALL: No gross hernia. LYMPH NODES: No gross lymphadenopathy. Mildly prominent lymph nodes in the retroperitoneum. VASCULAR: Throughout the abdominal aorta wall and iliac arteries. No aneurysm or dissection. Retroaortic trajectory of the left main renal vein. PELVIC VISCERA: 2 cm focal fluid density in the cul-de-sac, nonspecific. OSSEOUS STRUCTURES: Multilevel thoracolumbar spondylosis. Osteopenia versus osteoporosis. Romina type II sacralization. Bone marrow inhomogeneity. CT/CT abdomen pelvis w IV con IMPRESSION: Abundant stool. No intestinal obstruction pattern. Diverticular disease, left hemicolon. Hiatal hernia, moderate to large size. Atherosclerosis disease. Bone marrow inhomogeneity suggesting calcium metabolic disorder. Malignancy cannot be excluded. Fleischner guidelines were followed. Electronically signed by: Robson Jeff MD 01/26/2024 01:49 PM EST
[2024-01-26 10:47] LABS: MANUAL DIFF FLAG NO
[2024-01-26 10:51] LABS: Basophils Absolute Auto 0.1 X10*3/uL (0.0-0.2); Basophils Percent Auto 0.8 % (0-2); Eosinophils Percent Auto 0.5 % (0-4); Hematocrit 43.8 % (37.0-47.0); Hemoglobin 14.6 g/dl (12.0-16.0); Imm Gran Abs Auto 0.02 X10*3/uL (0.00-0.03); Imm Gran Pct Auto 0.3 % (0.0-0.4); Lymphocytes Absolute Auto 1.3 X10*3/uL (1.2-4.9); Lymphocytes Percent Auto 19.7 % (20-40); Mean Corpuscular HGB Conc 33.3 g/dl (31.0-35.0); Mean Corpuscular Hemoglobin 30.4 pg (27.0-33.0); Mean Corpuscular Volume 91.3 fL (80.0-98.0); Monocytes Absolute Auto 0.5 X10*3/uL (0.1-1.2); Monocytes Percent Auto 8.1 % (2-11); Neutrophils Absolute Auto 4.7 x10*3/uL (2.0-8.3); Neutrophils Percent Auto 70.6 % (45-73); Platelet Count 241 X10*3/uL (160-400); Red Cell Distribution Width 13.6 % (11.0-16.0); White Blood Count 6.7 X10*3/uL (4.8-10.8)
[2024-01-26 11:13] LABS: Alanine Aminotransferase 11 U/L (0-31); Albumin Level 3.5 g/dL (3.5-5.0); Alkaline Phosphatase 50 U/L (39-117); Anion Gap 11 (12-20); Aspartate Amino Transferase 23 U/L (5-31); Bilirubin Total 0.5 mg/dL (0.0-1.0); Blood Urea Nitrogen 11 mg/dL (9-16); Calcium 8.7 mg/dL (8.4-10.2); Carbon Dioxide 31 mmol/L (22-29); Chloride 106 mmol/L (96-108); Creatinine Clr Calc Pharmacy 41.1; Estimated Glomerular Filt Rate > 60; Glucose Random 107 mg/dL (60-115); Potassium 4.1 mmol/L (3.3-5.1); Sodium 144 mmol/L (135-145); Total Protein 6.1 g/dL (6.5-8.0)
--- NOTE | 2024-01-26 11:15 | ED_ITS ---
HPI - General Adult General Chief complaint: Nausea/Vomiting/Diarrhea Stated complaint: ABD PAIN,DIARRHEA,DIZZY PER EMS Time Seen by Provider: 01/26/24 10:31 Source: patient Mode of arrival: ambulatory Limitations: altered mental status (poor historian refer to HPI ) History of Present Illness ED Provider: JEWEL Bill HPI narrative: 83-year-old female past medical history significant for vertigo, H pylori, osteoporosis presenting to the emergency department with complaints of I am lost . Patient reports she is coming in with lightheadedness that has been going on for awhile, unable to tell me exactly when it started however it has been awhile. She is also reporting of diffuse abdominal discomfort again not sure when it started. When I asked her what date is she tells me today is Monday and she feels confused. She is a poor historian and has a tough time telling me why she is here. When I asked her if anything is hurting she says her whole entire body. She denies chest pain, shortness of breath, nausea, vomiting, headache, vision changes, weaknes, leg swelling, recent illness. Related Data Home Medications ?Medication ?Instructions ?Recorded ?Confirmed aspirin 81 mg tablet,delayed 81 mg PO DAILY 05/22/20 11/21/22 release (Adult Low Dose Aspirin) cholecalciferol (vitamin D3) 25 25 mcg PO DAILY 05/22/20 11/21/22 mcg (1,000 unit) capsule garlic 300 mg PO DAILY 05/22/20 11/21/22 rosuvastatin 20 mg tablet 20 mg PO BEDTIME 05/22/20 11/21/22 lorazepam 0.5 mg tablet 0.5 mg PO Q8H PRN anxiety 07/19/22 11/21/22 lisinopril 2.5 mg tablet 2.5 mg PO DAILY 12/26/23 metoprolol succinate 25 mg 25 mg PO DAILY 01/17/24 tablet,extended release 24 hr Previous Rx's ?Medication ?Instructions ?Recorded romosozumab-aqqg 210 mg/2.34 210 mg (2.34 mL) subcut .q monthly 02/01/23 mL(105 mg/1.17 mL x2)subcutaneous #2.34 mL syringe (Evenity) pantoprazole 20 mg tablet,delayed 20 mg PO DAILY #30 tabs 12/26/23 release ondansetron 4 mg disintegrating 4 mg PO Q8H PRN nausea and 01/17/24 tablet vomiting #30 tabs bismuth subsalicylate 262 mg 2 tab PO QID 14 days #112 tabs 01/18/24 chewable tablet (Bismuth) doxycycline hyclate 100 mg tablet 100 mg PO BID 14 days #28 tabs 01/18/24 metronidazole 500 mg tablet 1,000 mg (2 x 500 mg) PO BID 14 01/18/24 days #56 tabs omeprazole 20 mg capsule,delayed 20 mg PO DAILY #30 caps 01/18/24 release Allergies Allergy/AdvReac Type Severity Reaction Status Date / Time amoxicillin [AMOXICILLIN] Allergy Intermediate ITCHY Verified 01/26/24 10:33 EYES/RASH codeine [CODEINE] Allergy Unknown RASH Verified 01/17/24 08:13 zocor Allergy Unknown muscle pain Uncoded 11/21/22 13:48 Review of Systems 2 Review of Systems: Yes all other systems are reviewed and are negative PMFSH Past Medical History Attestation statement: The following information was validated with the patient. Source: old records reviewed and nursing notes reviewed Medical History Helicobacter pylori (H. pylori) Osteoporosis On beta maria d at home Asthma COPD (chronic obstructive pulmonary disease) Hypercholesteremia HTN (hypertension) Positive FIT (fecal immunochemical test) Surgical History History of surgical removal of ganglion cyst Hx of hysterectomy Hx of bilateral cataract extraction Hx of colonoscopy Family History Family History Daughter Parkinson disease Breast cancer Brother Lung cancer Daughter Heart disease Social History Social History Household Members: Family Alcohol intake: never Patient Tobacco Use Status: Current everyday Tobacco user Smoked in Last 30 Days: No Use of substances other than those prescribed or required for medical reasons: No Advance Directives: No Advance Directives Information Provided: Yes Physical Exam ED Vital Signs: Vital Signs - 24 hr 01/26/24 10:32 01/26/24 12:28 01/26/24 13:11 Temperature 98 F Pulse Rate 64 68 71 Respiratory Rate 16 16 Blood Pressure 154/80 H 162/87 H 142/76 H Pulse Oximetry 95 96 Oxygen Delivery Method Room Air Room Air 01/26/24 13:12 01/26/24 13:14 Temperature Pulse Rate 69 89 Respiratory Rate Blood Pressure 142/79 H 147/92 H Pulse Oximetry Oxygen Delivery Method BMI result Body Mass Index 17.5 vss Appearance: Alert.? Oriented X3.? No acute distress.? Head: Normocephalic, atraumatic, no step-offs or deformities Eyes: Pupils equal, round and reactive to light.? CVS: Normal heart rate and rhythm.? Pulses normal.? Respiratory: No respiratory distress.? Breath sounds normal.? Abdomen: Soft and diffuse discomfort .? Skin: Skin warm and dry.? Normal skin color.? Normal skin turgor.? Extremities: No lower extremity edema.? No calf ttp. Global weakness Back: No midline tenderness, no C-spine tenderness, full range of motion, no CVA tenderness bilaterally Neuro: Oriented X 3.? No motor deficit.? No sensory deficit. CN 2-12 intact Course Reevaluation(s) Reevaluation #1: Patient's CBC unremarkable. Chemistry with no acute findings needing intervention. Lipase normal. UA without infection. CT abdomen pelvis with abundant stool no intestinal obstruction diverticular disease seen however no acute disease. Hiatal hernia. Arthrosclerosis. Bone marrow changes concerning for calcium metabolic disorder however malignancy can not be excluded. CT of the head was obtained due to confusion no acute intracranial hemorrhage however small-vessel occlusive disease is noted and superimposed acute stroke/non hemorrhagic ischemia can not be excluded patient does have quite alteration in mentation according to patient, daughter and GI INSTRUMENT TECHNOLOGIST Sherwin who came down to evaluate patient. Patient is confused and feels lost. Will look into admitting patient for encephalopathy for further workup. I also did run this case by Neurology who reports no acute actions needed. Look for secondary causes. Time: 15:18 Medications Administered Discontinued Medications Generic Name Dose Route Start Last Admin Trade Name Freq PRN Reason Stop Dose Admin Acetaminophen 650 mg 01/26/24 11:53 01/26/24 12:26 Acetaminophen 325 Mg Tablet PO 01/26/24 11:54 650 mg ONCE ONE Administration Iohexol 85 ml 01/26/24 12:08 01/26/24 12:08 Iohexol 350 Mg/Ml 100 Ml Infus..Btl IV 01/26/24 12:09 85 ml ONCE ONE Administration Medical Decision Making Medical Decision Making [facility] Narrative: 1116 83-year-old female presents with confusion, lightheadedness, abdominal pain, poor historian. On exam global weakness, only oriented to person and place not time or situation. History and physical exam concerning for UTI versus possible metabolic derangements. Unlikely intracranial hemorrhage, stroke, posterior stroke. Will rule out orthostatic hypotension. Symptoms could also be secondary to antibiotic use,/gastritis. Plan labs, imaging, urine. Differential Diagnosis Differential Diagnoses: The differential diagnosis associated with the presentation includes ( History and physical exam concerning for UTI versus possible metabolic derangements. Unlikely intracranial hemorrhage, stroke, posterior stroke. Will rule out orthostatic hypotension.) Admission/Observation Consideration of admission/observation: Escalation of care including admission/observation considered Lab Data [facility] Lab Attestation statement: I reviewed the patient's lab results. 01/26/24 10:42 01/26/24 10:42 Labs: Lab Results 01/26/24 01/26/24 Range/Units 10:42 14:15 WBC 6.7 (4.8-10.8) X10*3/uL RBC 4.80 (4.20-5.50) X10*6/uL Hgb 14.6 (12.0-16.0) g/dl Hct 43.8 (37.0-47.0) % MCV 91.3 (80.0-98.0) fL MCH 30.4 (27.0-33.0) pg MCHC 33.3 (31.0-35.0) g/dl RDW 13.6 (11.0-16.0) % Plt Count 241 (160-400) X10*3/uL MPV 10.0 (9.4-12.3) fL Immature Gran % (Auto) 0.3 (0.0-0.4) % Neut % (Auto) 70.6 (45-73) % Lymph % (Auto) 19.7 L (20-40) % [place] % (Auto) 8.1 (2-11) % Eos % (Auto) 0.5 (0-4) % Baso % (Auto) 0.8 (0-2) % Lymph # (Auto) 1.3 (1.2-4.9) X10*3/uL [place] # (Auto) 0.5 (0.1-1.2) X10*3/uL Eos # (Auto) 0.0 (0.0-0.4) X10*3/uL Baso # (Auto) 0.1 (0.0-0.2) X10*3/uL Abs Immat Gran (auto) 0.02 (0.00-0.03) X10*3/uL Absolute Neuts (auto) 4.7 (2.0-8.3) x10*3/uL Absolute Nucleated RBC 0.000 (0.0-0.012) X10*3/uL Nucleated RBC % (auto) 0.0 (0.0-0.2) /100WBC Sodium 144 (135-145) mmol/L Potassium 4.1 (3.3-5.1) mmol/L Chloride 106 (96-108) mmol/L Carbon Dioxide 31 H (22-29) mmol/L Anion Gap 11 L (12-20) BUN 11 (9-16) mg/dL Creatinine 0.71 (0.5-1.4) mg/dL Estim Creat Clear Calc 41.1 Estimated GFR > 60 Random Glucose 107 (60-115) mg/dL Calcium 8.7 (8.4-10.2) mg/dL Total Bilirubin 0.5 (0.0-1.0) mg/dL AST 23 (5-31) U/L ALT 11 (0-31) U/L Alkaline Phosphatase 50 (39-117) U/L Troponin I High Sens 5.4 (<3.5-17.0) ng/L Total Protein 6.1 L (6.5-8.0) g/dL Albumin 3.5 (3.5-5.0) g/dL Lipase 15 (8-78) U/L Urine Color Yellow Urine Appearance Clear Urine pH 7.0 (5.0-9.0) Ur Specific [place] >= 1.030 H (1.005-1.025) Urine Protein Negative (Neg-Trace) mg/dL Urine Glucose (UA) Negative (Negative) mg/dL Urine Ketones Negative (Negative) mg/dL Urine Blood Trace H (Negative) Urine Nitrite Negative (Negative) Ur Leukocyte Esterase Negative (Negative) Urine RBC 6-10 H (0-2) /HPF Urine WBC 0-5 (0-5) /HPF Ur Squamous Epith Cells 0-2 (0-2) /HPF Urine Bacteria None Seen (None Seen) Hyaline Casts 0-2 (0-2) /LPF Independent Interpretation I performed an independent interpretation of an: EKG and CT Scan (CT/CT head/brain wo IV con IMPRESSION: No acute intracranial hemorrhage. Small vessel occlusive disease. Superimposed acute stroke/nonhemorrhagic ischemia cannot be excluded. Global atrophy. Calcium metabolic disorder versus malignancy.) Radiology Impression Discussion of test interpretation with radiology: I have reviewed the radiologist's reading. Prescription Management I considered prescription management with: Antibiotic (on doxy for hpylori and metronidazole ) Chronic Conditions Patient?s care impacted by: Other (see HPI ) Critical Care Time Critical Care Time Critical Care Time: Yes Total Critical Care Time: 35 Attestation: I attest to this time spent taking care of the patient, obtaining history, physical, reviewing labs, imaging, treatment of patients condition +/- specialist/hospitalist consult Discharge Plan Discharge Clinical Impression: Abdominal pain, Encephalopathy, Acute delirium Prescriptions: No Action Evenity 210mg/2.34mL ( 105mg/1.17mLx2) syringe 210 mg subcut .q monthly Qty: 2.34 11RF bismuth subsalicylate [Bismuth] 262 mg tablet,chewable 2 tab PO QID 14 Days Qty: 112 0RF metronidazole 500 mg tablet 1,000 mg PO BID 14 Days Qty: 56 0RF doxycycline hyclate 100 mg tablet 100 mg PO BID 14 Days Qty: 28 0RF omeprazole 20 mg capsule,delayed release(DR/EC) 20 mg PO DAILY Qty: 30 3RF rosuvastatin 20 mg tablet 20 mg PO BEDTIME cholecalciferol (vitamin D3) 25 mcg (1,000 unit) capsule 25 mcg PO DAILY garlic Tablet 300 mg PO DAILY aspirin [Adult Low Dose Aspirin] 81 mg tablet,delayed release (DR/EC) 81 mg PO DAILY lorazepam 0.5 mg tablet 0.5 mg PO Q8H PRN (Reason: anxiety) lisinopril 2.5 mg tablet 2.5 mg PO DAILY pantoprazole 20 mg tablet,delayed release (DR/EC) 20 mg PO DAILY Qty: 30 3RF metoprolol succinate 25 mg tablet extended release 24 hr 25 mg PO DAILY ondansetron 4 mg tablet,disintegrating 4 mg PO Q8H PRN (Reason: nausea and vomiting) Qty: 30 0RF Print Language: Montserratian
--- NOTE | 2024-01-26 11:53 | ECG_ITS ---
Test Reason : DIZZINESS Blood Pressure : / mmHG Vent. Rate : 071 BPM Atrial Rate : 071 BPM P-R Int : 174 ms QRS Dur : 154 ms QT Int : 442 ms P-R-T Axes : 090 -52 126 degrees QTc Int : 480 ms Normal sinus rhythm Left axis deviation Left bundle branch block Abnormal ECG When compared with ECG of 21-MAY-2022 14:09, No significant change was found Referred By: Janice Bill Electronically Signed By:LINDA URIBE
[2024-01-26 11:57] LABS: Lipase 15 U/L (8-78)
[2024-01-26] MEDS: iohexoL 350 MG/ML 100 ML INFUS..BTL 85 ML IV (12:08)
[2024-01-26] MEDS: Acetaminophen 325 MG TABLET 650 MG PO (12:26)
--- NOTE | 2024-01-26 12:50 | PC.NURSE ---
pt presents to ED via EMS from home, reports N/V/D for past couple of weeks worsening. Was diagnosed with H.pylori on 01/17 and is taking oral doxy at home. Reports symptoms are not improving. Also reports dizziness, general weakness and feeling more confused. Alert and oriented but noted to be confused on some things, breathing even and unlabored, skin warm and dry,
[2024-01-26 12:57] LABS: Troponin-I High Sensitivity 5.4 ng/L (<3.5-17.0)
[2024-01-26 14:23] LABS: Appearance Urine Clear; Color Urine Yellow; Glucose Urine UA Negative (Negative); Leukocyte Esterase Urine Negative (Negative); Nitrite Urine Negative (Negative); Specific Gravity - Urine >= 1.030 (1.005-1.025); UMIC TRIGGER UACC YES; Urine Blood Trace (Negative); Urine Ketones Negative (Negative); Urine Protein Negative (Neg-Trace)
[2024-01-26 14:28] LABS: Bacteria Urine None Seen (None Seen); Hyaline Casts Urine 0-2 /LPF (0-2); Squamous Epithelial Cell Urine 0-2 /HPF (0-2); WBC Urine 0-5 /HPF (0-5)
[2024-01-26] MEDS: Meclizine HCl 25 MG TABLET PO (15:48)
--- NOTE | 2024-01-26 16:29 | PHA.MEDREC ---
Addendum entered by Harris La minerva 01/26/24 17:38: MED REC CHECKED BY [facility] Original Note: Pharmacy Consult ? Medication Reconciliation Pharmacy has completed the medication reconciliation. Spoke with patient and daughter at bedside and patient was able to confirm her medications with me family well. She confirmed she is still taking the Lisinopril 2.5mg tab and states she is filling it at [facility] in [place]. I called [facility] and they state they have no claims for Lisinopril 2.5mg tabs at their facility on that patients profile. Her daughter confirmed she started the Doxycycline Hyclate 100mg tab 1 week ago and she has 1 week left of that regimen. The patients daughter and patient confirmed she took her morning medications this morning.
--- NOTE | 2024-01-26 16:33 | P.HPHOSP_ITS ---
History of Present Illness Date of Service: 01/26/24 Attending physician on admission: Stephane Stewart Chief Complaint: Lightheadedness, confusion Pt is an 83-year-old female with a PMH significant for?HTN, HLD, osteoporosis, H pylori, and GERD who presents to the ED with multiple complaints, though primarily?lightheadness and confusion of unclear duration. Pt is overall a poor historian and unable to offer concrete details or timeline. Initially presented to the ED complaining of ?I am lost?. Patient also complains of being nervous and then becoming lightheaded and dizzy that does not appear to be positional. She is unable to clarify symptoms or indicate duration of symptoms, but denies feeling like the room is spinning. Last known well time unclear. Also complains of lower abdominal pain. Lives with her grandson but was brought in by her daughter who reports pt is usually AOx4 and is currently not at baseline. Denies chest pain/pressure, palpitations. No fever, chills, nausea, vomiting, or diarrhea. Denies shortness or breath or difficulty breathing. No cough. Of note, unable to contact family via phone concerning patient's symptoms and their duration. In the ED pt was hypertensive up to 162/87, vitals otherwise stable and WNL. Orthostatics negative Labs were grossly unremarkable and baseline for patient. No leukocytosis. Stable H&H. No significant electrolyte abnormalities. Renal function baseline hepatic function baseline. Initial troponin 5.4. UA negative for UTI. CT?of head showed no acute intracranial hemorrhage, but showed small- vessel occlusive disease with superimposed acute stroke/nonhemorrhagic ischemia can not be excluded. Also showed global atrophy and calcium metabolic disorder versus malignancy. CT of abdomen and pelvis found abundant stool with no obstruction, as well as bone marrow inhomogeneity suggesting calcium metabolic disorder though malignancy can not be excluded. EKG demonstrated normal sinus rhythm with LBBB, similar to prior. Pt was treated with acetaminophen and meclizine. Pt will be admitted to the hospital under observation for treatment and further evaluation of acute encephalopathy concerning for CVA versus worsening dementia. Review of Systems 2 Review of Systems: Negative except for that which is stated in the [facility] Medical History Helicobacter pylori (H. pylori) Osteoporosis On beta maria d at home Asthma COPD (chronic obstructive pulmonary disease) Hypercholesteremia HTN (hypertension) Positive FIT (fecal immunochemical test) Family History Daughter Parkinson disease Breast cancer Brother Lung cancer Daughter Heart disease Surgical History History of surgical removal of ganglion cyst Hx of hysterectomy Hx of bilateral cataract extraction Hx of colonoscopy Social History Household Members: Other Household Members Other:: Grandson: Balta Housing: House Do you presently have visiting nurse or other home services: No Alcohol intake: never Patient Tobacco Use Status: Never used Tobacco Tobacco use type: Cigarette Cigarette Packs Per Day: 0.5 Cigarettes Per Day: 10.0 Years Smoked: over 30 years Smoked in Last 30 Days: Yes e-Cigarette/Vaping Use: Never Used Patient Interested in Nicotine Replacement: No Patient Given Instructions on How to Stop Smoking: No Second Hand Smoke Exposure: Yes Use of substances other than those prescribed or required for medical reasons: No Currently Displaying Signs/Symptoms of Drug Intoxication Withdrawal: No Any prior treatment program specific to substance use: No Have you been hit, kicked, punched, or otherwise hurt by someone within the past year? If so, by whom?: No Do you feel safe in your current relationship?: No Current Relationship Is there a partner from a previous relationship who is making you feel unsafe now?: No Are you made to feel afraid or neglected: No Spiritism Healthcare Practices: Attends gnosticism on Sundays Advance Directives: No Advance Directives Information Provided: Yes Do you have a plan to hurt others: No Plan Recently lost weight without trying: Yes How much weight loss: 2-13 pounds Eating poorly because of decreased appetite: Yes Nutrition screen score: 4 Nutrition Risks: Difficulty chewing Patient : No : No Poor oral hygiene: No service: No Meds Allergies Allergy/AdvReac Type Severity Reaction Status Date / Time amoxicillin [AMOXICILLIN] Allergy Intermediate ITCHY Verified 01/26/24 10:33 EYES/RASH codeine [CODEINE] Allergy Unknown RASH Verified 01/17/24 08:13 zocor Allergy Unknown muscle pain Uncoded 11/21/22 13:48 Home Medications ?Medication ?Instructions ?Recorded ?Confirmed ?Last Taken ?Type aspirin 81 mg tablet,delayed 81 mg PO DAILY 05/22/20 01/26/24 01/26/24 History release (Adult Low Dose Aspirin) cholecalciferol (vitamin D3) 25 25 mcg PO DAILY 05/22/20 01/26/24 01/26/24 History mcg (1,000 unit) capsule rosuvastatin 20 mg tablet 20 mg PO BEDTIME 05/22/20 01/26/24 01/25/24 History lorazepam 0.5 mg tablet 0.5 mg PO Q8H PRN anxiety 07/19/22 01/26/24 Unknown History lisinopril 2.5 mg tablet 2.5 mg PO DAILY 12/26/23 01/26/24 01/26/24 History metoprolol succinate 25 mg 25 mg PO DAILY 01/17/24 01/26/24 01/26/24 History tablet,extended release 24 hr Physical Exam 2 Vital Signs and Narrative: Vital Signs: Last Vital Signs Temp 98.1 F 01/26/24 15:49 Pulse 74 01/26/24 15:49 Resp 20 01/26/24 15:49 BP 154/96 H 01/26/24 15:49 Pulse Ox 95 01/26/24 15:49 O2 Del Method Room Air 01/26/24 15:49 BMI result Body Mass Index 17.5 Constitutional: Alert, in no acute distress. Mental Status: Oriented to person, place and time, but not fully to situation. Pt also gets easily confused. Eyes: Pupils are equal, round, and reactive to light. Ear, Nose, and Throat: Oropharynx clear, mucous membranes moist. Ears and nose without deformities. Trachea midline. Respiratory: Clear to auscultation bilaterally. No wheezing, rales, or rhonchi. Cardiovascular: S1, S2 regular. No murmurs, rubs, or gallops. Gastrointestinal: Abdomen soft, non-distended with lower abd tenderness. Normal bowel sounds. Neurologic: Cranial nerves II-XII are grossly intact bilaterally. No focal neurological deficits. Moves all extremities spontaneously. Sensation to light touch intact of upper and lower extremities bilaterally. Strength preserved and symmetric in upper and lower extremities bilaterally. Negative pronator drift. No tongue deviation. Skin: Warm, dry. Extremities: No edema. Psychiatric: Normal mood and affect. Results Labs 01/26/24 10:42 01/26/24 10:42 Labs: Laboratory Results - last 24 hr 01/26/24 01/26/24 10:42 14:15 MCV 91.3 MCH 30.4 MCHC 33.3 RDW 13.6 Plt Count 241 MPV 10.0 Immature Gran % (Auto) 0.3 Neut % (Auto) 70.6 Lymph % (Auto) 19.7 L [place] % (Auto) 8.1 Eos % (Auto) 0.5 Baso % (Auto) 0.8 Lymph # (Auto) 1.3 [place] # (Auto) 0.5 Eos # (Auto) 0.0 Baso # (Auto) 0.1 Abs Immat Gran (auto) 0.02 Absolute Neuts (auto) 4.7 Absolute Nucleated RBC 0.000 Nucleated RBC % (auto) 0.0 Anion Gap 11 L Estim Creat Clear Calc 41.1 Estimated GFR > 60 Random Glucose 107 Calcium 8.7 Total Bilirubin 0.5 AST 23 ALT 11 Alkaline Phosphatase 50 Troponin I High Sens 5.4 Total Protein 6.1 L Albumin 3.5 Lipase 15 Urine Color Yellow Urine Appearance Clear Urine pH 7.0 Ur Specific [place] >= 1.030 H Urine Protein Negative Urine Glucose (UA) Negative Urine Ketones Negative Urine Blood Trace H Urine Nitrite Negative Ur Leukocyte Esterase Negative Urine RBC 6-10 H Urine WBC 0-5 Ur Squamous Epith Cells 0-2 Urine Bacteria None Seen Hyaline Casts 0-2 Imaging Radiologist's Impressions: Impressions Head CT 01/26/24 11:19 IMPRESSION: No acute intracranial hemorrhage. Small vessel occlusive disease. Superimposed acute stroke/nonhemorrhagic ischemia cannot be excluded. Global atrophy. Calcium metabolic disorder versus malignancy. Electronically signed by: Robson Jeff MD 01/26/2024 01:52 PM EST RP Abdomen/Pelvis CT 01/26/24 12:00 IMPRESSION: Abundant stool. No intestinal obstruction pattern. Diverticular disease, left hemicolon. Hiatal hernia, moderate to large size. Atherosclerosis disease. Bone marrow inhomogeneity suggesting calcium metabolic disorder. Malignancy cannot be excluded. Fleischner guidelines were followed. Electronically signed by: Robson Jeff MD 01/26/2024 01:49 PM EST RP Assessment and Plan (1) Acute encephalopathy: Status: Acute (2) Lightheadedness: Status: Acute Plan Pt is an 83-year-old female with a PMH significant for?HTN, HLD, osteoporosis, H pylori, and GERD who presents to the ED with multiple complaints, though primarily?lightheadness and confusion of unclear duration. Pt will be admitted to the hospital under observation for treatment and further evaluation of acute encephalopathy concerning for CVA versus worsening dementia. Acute encephalopathy Pt confused, feels lost , not at baseline according to family; unclear duration of symptoms Concerning for CVA vs worsening dementia CT of head negative for acute intracranial hemorrhage, though showed global atrophy and small-vessel occlusive disease that can not exclude acute stroke/nonhemorrhagic ischemia Will get MRI of head/brain OT evaluation for MoCA Monitor mentation Lightheadedness/dizziness Unclear etiology Orthostatics negative Check MRI PT evaluation Abnormal CT results CTA of head and CT of abdomen/pelvis bone marrow inhomogeneity concerning calcium metabolic disorder vs malignancy Will check TSH, PTH, B12, folate, vitamin-D, and immunofixation panel Follow up outpatient H pylori Continue doxycycline, omeprazole, bismuth, and metronidazole HLD Continue statin Full Code Attending:?Dr. Stewart DVT Prophylaxis: Lovenox Patient will be admitted to the hospital under observation for treatment and further evaluation of acute encephalopathy of unclear etiology: Concerning for CVA versus worsening dementia. Patient will have cardiac monitoring overnight and additional imaging with an MRI, as well at PT/OT evaluations. Quality Stroke Does the patient have a stroke diagnosis?: No VTE Prior VTE?: No VTE Risk Level:: Medical - moderate - high VTE Device Contraindication: Treatment Not Indicated VTE Drug Contraindication: N/A - Med Ordered
[2024-01-26 17:52] LABS: TSH reflex Free T4 2.98 uIU/mL (0.32-4.0)
--- NOTE | 2024-01-26 18:58 | PC.NURSE ---
Late entry: When ambulating pt, pt noted have some difficulty with her gait. Pt confused, only oriented to person. Denies any pain
[2024-01-26 19:09] LABS: Vitamin D 25-OH Total 57.7 ng/mL (>30)
[2024-01-26 19:10] LABS: Parathyroid Hormone Intact 57.9 pg/mL (8.7-77.1)
--- NOTE | 2024-01-26 19:13 | PC.NURSE ---
message left for daughter regarding MRI screening form
[2024-01-26 19:22] LABS: Folate 15.5 ng/mL (> or = 4.0); Vitamin B12 797 pg/mL (200-900)
--- NOTE | 2024-01-26 19:44 | MHC.EDTECH ---
pt ambulated to bathroom after stool incontinence. pt was te cleaned and new pants were given. pt ambulate back to room, hooked back up to drywall sprayer, warm blankets given, pt resting in bed at this time.
[2024-01-26] MEDS: Atorvastatin Calcium 80 MG TABLET PO (22:18)
[2024-01-26] MEDS: Doxycycline Monohydrate 100 MG CAPSULE PO (22:19)
[2024-01-26] MEDS: metroNIDAZOLE 500 MG TABLET 1000 MG PO (22:19)
[2024-01-27] VITALS (9 sets, daily range): BP systolic 122–170; BP diastolic 59–88; PULSE 57–87; RESP 18–20; TEMP 36.7–37.3; O2SAT 92–96
--- NOTE | 2024-01-27 | ECG_ITS ---
Test Reason : chestp ain Blood Pressure : / mmHG Vent. Rate : 061 BPM Atrial Rate : 061 BPM P-R Int : 168 ms QRS Dur : 156 ms QT Int : 464 ms P-R-T Axes : 091 -51 165 degrees QTc Int : 467 ms Sinus rhythm with Premature atrial complexes Left axis deviation Left bundle branch block Abnormal ECG When compared with ECG of 26-JAN-2024 12:25, No significant changes seen Referred By: Stephane Stewart Electronically Signed By:LINDA URIBE
[2024-01-27] MEDS: LORazepam 0.5 MG TABLET PO ×2 (02:50→12:56)
[2024-01-27] MEDS: Omeprazole 20 MG CAPSULE.DR PO (06:23)
[2024-01-27] MEDS: 0.9 % Sodium Chloride Flush 3 ML SYRINGE IVFLUSH ×4 (06:26→23:19)
[2024-01-27] MEDS: lisinopriL 2.5 MG TABLET PO (08:32)
[2024-01-27] MEDS: Cholecalciferol (Vitamin D3) 25 MCG TABLET PO (08:32)
[2024-01-27] MEDS: Doxycycline Monohydrate 100 MG CAPSULE PO ×2 (08:32→21:03)
[2024-01-27] MEDS: metroNIDAZOLE 500 MG TABLET 1000 MG PO ×2 (08:32→21:02)
[2024-01-27] MEDS: Aspirin Enteric Coated 81 MG TABLET.DR PO (08:32)
[2024-01-27] MEDS: Bismuth Subsalicylate 262 MG TABLET 524 MG PO ×4 (08:43→23:18)
--- NOTE | 2024-01-27 10:02 | MHC.CM.PN ---
Patient is here with Acute Encephalopathy and Acute Delirium; CM attempted to reach Daughter/HCP/Abby @ [phone], but was only able to leave a detailed message, explaining that the FELIPE would be mailed to her. CM was able to speak with Second Contact/Son-in-Law/Nj @ the listed #. Patient lives in a house with her Grandson, who works and also cares for Patient. 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 Per Nj, it has become increasingly difficult to manage Patient at home and she may benefit from a PT Eval (home with new VNA VS STR(OBSERVATION NOW)to assist with disposition. Patient's Daughter/HCP/Abby has Parkinson's Disease x 11 years. If dc'd to home, Patient's Grandson or other family member will transport.PCP is Dr. Nino Jackson and Nj agreed to provide CM with a copy of the HCP.
--- NOTE | 2024-01-27 11:13 | HO.PM.IMPN ---
Subjective Subjective Date of Service: 01/27/24 Interval History: per family short-term memory deficits + anxiety x 3mo, also c/o dizziness this AM she is alert/oriented x3 c/o abd discomfort Review of Systems Review of Systems: Yes all other systems are reviewed and are negative Physical Exam Vital Signs: Vital Signs: Last Vital Signs Temp 99.1 F 01/27/24 07:16 Pulse 67 01/27/24 10:12 Resp 20 01/27/24 07:16 BP 170/88 H 01/27/24 10:12 Pulse Ox 92 01/27/24 07:16 O2 Del Method Room Air 01/27/24 07:16 BMI result Body Mass Index 16.5 Gen: in no acute distress HEENT: sclera anicteric, moist mucus membranes Neck: supple Lungs: clear to auscultation bilaterally Heart: regular rate and rhythm, no murmurs Abd: soft, non-tender, non-distended Ext: no edema Skin: warm/well-perfused Neuro: alert and oriented x3, no focal findings Psych: appropriate affect Objective Data Active Medications Acetaminophen (Acetaminophen 325 Mg Tablet) 650 mg PO Q6H PRN PRN Reason: Pain, Mild (Pain Scale 1-3), fever or headache Aspirin (Aspirin Enteric Coated 81 Mg Tablet.) 81 mg PO DAILY [facility] Last Admin: 01/27/24 08:32 Dose: 81 mg Documented By: FRED Atorvastatin Calcium (Atorvastatin Calcium 80 Mg Tablet) 80 mg PO BEDTIME [facility] Last Admin: 01/26/24 22:18 Dose: 80 mg Documented By: SENA Bismuth Subsalicylate (Bismuth Subsalicylate 262 Mg Tablet) 524 mg PO QID [facility] Last Admin: 01/27/24 08:43 Dose: 524 mg Documented By: FRED Calcium Carbonate (Calcium Carbonate 750 Mg Tab.Chew) 750 mg PO Q4H PRN PRN Reason: Heartburn Doxycycline Monohydrate (Doxycycline Monohydrate 100 Mg Capsule) 100 mg PO BID [facility] Last Admin: 01/27/24 08:32 Dose: 100 mg Documented By: FRED Enoxaparin Sodium (Enoxaparin Sodium 40 Mg/0.4 Ml Syringe) 40 mg SUBCUT Q24H [facility] Last Admin: 01/26/24 18:27 Dose: Not Given Documented By: CONNOR Non-Admin Reason: Patient Refused Lisinopril (Lisinopril 2.5 Mg Tablet) 2.5 mg PO DAILY [facility]; Protocol Last Admin: 01/27/24 08:32 Dose: 2.5 mg Documented By: FRED Lorazepam (Lorazepam 0.5 Mg Tablet) 0.5 mg PO Q8H PRN PRN Reason: anxiety Last Admin: 01/27/24 02:50 Dose: 0.5 mg Documented By: SENA Magnesium Hydroxide (Milk Of Magnesia 30 Ml Oral.Susp) 30 ml PO DAILY PRN PRN Reason: Constipation Melatonin (Melatonin 3 Mg Tablet) 6 mg PO BEDTIME PRN PRN Reason: Insomnia Metoprolol Succinate (Metoprolol Succinate Er 25 Mg Tab.Er.24h) 25 mg PO DAILY [facility]; Protocol Last Admin: 01/27/24 09:16 Dose: Not Given Documented By: FRED Non-Admin Reason: Physician Approved Metronidazole (Metronidazole 500 Mg Tablet) 1,000 mg PO BID [facility] Last Admin: 01/27/24 08:32 Dose: 1,000 mg Documented By: FRED Omeprazole (Omeprazole 20 Mg Capsule.Dr) 20 mg PO DAILY@0630 [facility] Last Admin: 01/27/24 06:23 Dose: 20 mg Documented By: SENA Ondansetron HCl (Ondansetron Hcl 4 Mg/2 Ml Vial) 4 mg IVPUSH Q8H PRN PRN Reason: Nausea and Vomiting Sodium Chloride (0.9 % Sodium Chloride Flush 3 Ml Syringe) 3 ml IVFLUSH QSHIFT [facility] Last Admin: 01/27/24 08:33 Dose: 3 ml Documented By: FRED Vitamin D (Cholecalciferol (Vitamin D3) 25 Mcg Tablet) 25 mcg PO DAILY [facility] Last Admin: 01/27/24 08:32 Dose: 25 mcg Documented By: FRED Labs 01/26/24 10:42 01/26/24 10:42 Labs: Laboratory Results - last 24 hr 01/26/24 01/26/24 01/26/24 10:42 14:15 18:23 Anion Gap 11 L Estim Creat Clear Calc 41.1 Estimated GFR > 60 Random Glucose 107 Calcium 8.7 Total Bilirubin 0.5 AST 23 ALT 11 Alkaline Phosphatase 50 Troponin I High Sens 5.4 Total Protein 6.1 L Albumin 3.5 Lipase 15 Vitamin B12 797 25-OH Vitamin D Total 57.7 Folate 15.5 TSH 2.98 PTH Intact 57.9 Urine Color Yellow Urine Appearance Clear Urine pH 7.0 Ur Specific [place] >= 1.030 H Urine Protein Negative Urine Glucose (UA) Negative Urine Ketones Negative Urine Blood Trace H Urine Nitrite Negative Ur Leukocyte Esterase Negative Urine RBC 6-10 H Urine WBC 0-5 Ur Squamous Epith Cells 0-2 Urine Bacteria None Seen Hyaline Casts 0-2 Assessment and Plan (1) Encephalopathy: Status: Acute Plan d2 for 83yo F with HTN, HLD, osteoporosis, GERD, Helicobacter pylori infection currently being treated presenting with dizziness + confusion x 3 months encephalopathy vs. incipient dementia - CT showed global atrophy and small-vessel occlusive disease that can not exclude acute stroke/nonhemorrhagic ischemia; MRI + EEG + Neuro consult pending along with PT + OT evaluations dizziness - orthostatics negative, MRI as above bone marrow heterogeneity concerning for calcium metabolic disorder vs malignancy - Ca/iPTH/25-OH D axis normal; immunofixation panel pending; outpt evaluation H pylori infection - continue quadruple therapy with doxycycline, omeprazole, bismuth, and metronidazole HTN - lisinopril + metoprolol succinate HLD - continue statin VTE prophylaxis - enoxaparin dispo - TBD In my clinical judgment, the patient requires continued inpatient hospitalization for the following reasons: neurologic evaluation Total time managing care of this patient today: 45 minutes. Quality Stroke Does the patient have a stroke diagnosis?: No VTE Prior VTE?: No VTE Risk Level:: Medical - moderate - high VTE Device Contraindication: Treatment Not Indicated VTE Drug Contraindication: N/A - Med Ordered
[2024-01-27 12:10] LABS: Troponin-I High Sensitivity 7.3 ng/L (<3.5-17.0)
[2024-01-27 14:42] LABS: CDiff Gene PCR NEGATIVE (Negative)
[2024-01-27 15:02] LABS: Troponin-I High Sensitivity 5.8 ng/L (<3.5-17.0)
[2024-01-27] MEDS: Acetaminophen 325 MG TABLET 650 MG PO (15:26)
[2024-01-27] MEDS: Enoxaparin Sodium 40 MG/0.4 ML SYRINGE SUBCUT (18:55)
[2024-01-27] MEDS: Atorvastatin Calcium 80 MG TABLET PO (21:03)
[2024-01-28] MEDS: LORazepam 0.5 MG TABLET PO (00:32)
[2024-01-28 06:03] VITALS: BP 132/68; PULSE 70; RESP 18; TEMP 36.8; O2SAT 96
[2024-01-28] MEDS: Omeprazole 20 MG CAPSULE.DR PO (06:29)
[2024-01-28 07:28] VITALS: BP 145/75; PULSE 69; RESP 20; TEMP 37.6; O2SAT 95
--- NOTE | 2024-01-28 08:43 | P.CNNE_ITS ---
History of Present Illness Data of Consult Service Date: 01/28/24 Primary Care Provider: Nino Jackson MD HPI Reason for consult: Dizziness 83 years old woman who seem to have at least moderately severe multifactorial, vascular +degenerative, dementia was not feeling well for few days and family noted that she was not her usual self. Family said that there were thinking about bringing her to emergency room for few days but on the day of admission, she fell particularly not well and stated that her legs were giving away and she was brought here. She could not provide all that detail. Review of Systems 2 Review of Systems: No recent passing out trauma cold or flu-like illness PMFSH Past Medical History Medical History Helicobacter pylori (H. pylori) Osteoporosis On beta maria d at home Asthma COPD (chronic obstructive pulmonary disease) Hypercholesteremia HTN (hypertension) Positive FIT (fecal immunochemical test) Family History Family History Daughter Parkinson disease Breast cancer Brother Lung cancer Daughter Heart disease Surgical History Surgical History History of surgical removal of ganglion cyst Hx of hysterectomy Hx of bilateral cataract extraction Hx of colonoscopy Social History Social History Household Members: Other Household Members Other:: Grandson: Balta Housing: House Do you presently have visiting nurse or other home services: No Alcohol intake: never Patient Tobacco Use Status: Never used Tobacco Tobacco use type: Cigarette Cigarette Packs Per Day: 0.5 Cigarettes Per Day: 10.0 Years Smoked: over 30 years Smoked in Last 30 Days: Yes e-Cigarette/Vaping Use: Never Used Patient Interested in Nicotine Replacement: No Patient Given Instructions on How to Stop Smoking: No Second Hand Smoke Exposure: Yes Use of substances other than those prescribed or required for medical reasons: No Currently Displaying Signs/Symptoms of Drug Intoxication Withdrawal: No Any prior treatment program specific to substance use: No Have you been hit, kicked, punched, or otherwise hurt by someone within the past year? If so, by whom?: No Do you feel safe in your current relationship?: No Current Relationship Is there a partner from a previous relationship who is making you feel unsafe now?: No Are you made to feel afraid or neglected: No Orthodoxy Healthcare Practices: Attends mandaeism on Sundays Advance Directives: No Advance Directives Information Provided: Yes Do you have a plan to hurt others: No Plan Recently lost weight without trying: Yes How much weight loss: 2-13 pounds Eating poorly because of decreased appetite: Yes Nutrition screen score: 4 Nutrition Risks: Difficulty chewing Patient : No : No Poor oral hygiene: No service: No Meds Allergies Allergy/AdvReac Type Severity Reaction Status Date / Time amoxicillin [AMOXICILLIN] Allergy Intermediate ITCHY Verified 01/26/24 10:33 EYES/RASH codeine [CODEINE] Allergy Unknown RASH Verified 01/17/24 08:13 zocor Allergy Unknown muscle pain Uncoded 11/21/22 13:48 Active Medications: Current Medications Acetaminophen (Acetaminophen 325 Mg Tablet) 650 mg PO Q6H PRN PRN Reason: Pain, Mild (Pain Scale 1-3), fever or headache Last Admin: 01/27/24 15:26 Dose: 650 mg Aspirin (Aspirin Enteric Coated 81 Mg Tablet.Dr) 81 mg PO DAILY [facility] Last Admin: 01/27/24 08:32 Dose: 81 mg Atorvastatin Calcium (Atorvastatin Calcium 80 Mg Tablet) 80 mg PO BEDTIME [facility] Last Admin: 01/27/24 21:03 Dose: 80 mg Bismuth Subsalicylate (Bismuth Subsalicylate 262 Mg Tablet) 524 mg PO QID [facility] Last Admin: 01/27/24 23:18 Dose: 524 mg Calcium Carbonate (Calcium Carbonate 750 Mg Tab.Chew) 750 mg PO Q4H PRN PRN Reason: Heartburn Doxycycline Monohydrate (Doxycycline Monohydrate 100 Mg Capsule) 100 mg PO BID [facility] Last Admin: 01/27/24 21:03 Dose: 100 mg Enoxaparin Sodium (Enoxaparin Sodium 40 Mg/0.4 Ml Syringe) 40 mg SUBCUT Q24H [facility] Last Admin: 01/27/24 18:55 Dose: 40 mg Lisinopril (Lisinopril 2.5 Mg Tablet) 2.5 mg PO DAILY [facility]; Protocol Last Admin: 01/27/24 08:32 Dose: 2.5 mg Lorazepam (Lorazepam 0.5 Mg Tablet) 0.5 mg PO Q8H PRN PRN Reason: anxiety Last Admin: 01/28/24 00:32 Dose: 0.5 mg Magnesium Hydroxide (Milk Of Magnesia 30 Ml Oral.Susp) 30 ml PO DAILY PRN PRN Reason: Constipation Melatonin (Melatonin 3 Mg Tablet) 6 mg PO BEDTIME PRN PRN Reason: Insomnia Metoprolol Succinate (Metoprolol Succinate Er 25 Mg Tab.Er.24h) 25 mg PO DAILY [facility]; Protocol Last Admin: 01/27/24 09:16 Dose: Not Given Metronidazole (Metronidazole 500 Mg Tablet) 1,000 mg PO BID [facility] Last Admin: 01/27/24 21:02 Dose: 1,000 mg Omeprazole (Omeprazole 20 Mg Capsule.Dr) 20 mg PO DAILY@0630 [facility] Last Admin: 01/28/24 06:29 Dose: 20 mg Ondansetron HCl (Ondansetron Hcl 4 Mg/2 Ml Vial) 4 mg IVPUSH Q8H PRN PRN Reason: Nausea and Vomiting Sodium Chloride (0.9 % Sodium Chloride Flush 3 Ml Syringe) 3 ml IVFLUSH QSHIFT [facility] Last Admin: 01/27/24 23:19 Dose: 3 ml Vitamin D (Cholecalciferol (Vitamin D3) 25 Mcg Tablet) 25 mcg PO DAILY [facility] Last Admin: 01/27/24 08:32 Dose: 25 mcg Home Medications ?Medication ?Instructions ?Recorded ?Confirmed ?Last Taken ?Type aspirin 81 mg tablet,delayed 81 mg PO DAILY 05/22/20 01/26/24 01/26/24 History release (Adult Low Dose Aspirin) cholecalciferol (vitamin D3) 25 25 mcg PO DAILY 05/22/20 01/26/24 01/26/24 History mcg (1,000 unit) capsule rosuvastatin 20 mg tablet 20 mg PO BEDTIME 05/22/20 01/26/24 01/25/24 History lorazepam 0.5 mg tablet 0.5 mg PO Q8H PRN anxiety 07/19/22 01/26/24 Unknown History lisinopril 2.5 mg tablet 2.5 mg PO DAILY 12/26/23 01/26/24 01/26/24 History metoprolol succinate 25 mg 25 mg PO DAILY 01/17/24 01/26/24 01/26/24 History tablet,extended release 24 hr Physical Exam 2 Vital Signs: Vital Signs: Last Vital Signs Temp 99.6 F 01/28/24 07:28 Pulse 69 01/28/24 07:28 Resp 20 01/28/24 07:28 BP 145/75 H 01/28/24 07:28 Pulse Ox 95 01/28/24 07:28 O2 Del Method Room Air 01/28/24 07:28 BMI result Body Mass Index 16.5 Neuro: Other: Alert and awake with normal spontaneity of speech fluency comprehension and confused and vague affect. She could not tell me exactly what had happened. Face was symmetrical. Visual garcia are full. There was no focal weakness. Results Labs 01/26/24 10:42 01/26/24 10:42 Labs: MRI of brain without contrast did not reveal any acute abnormality. Moderately severe diffuse cerebral atrophy and moderately severe chronic vascular ischemic type of disease was noted. Assessment and Plan (1) Acute encephalopathy: Status: Acute 83 years old woman with underlying multifactorial vascular +degenerative dementia probably is going through urinary tract infection with mild fever and associated encephalopathy. Appropriate management is recommended. Otherwise she might need proper placement if she was not able to take care of herself or if support structure was not available. Procedures Date of Service Date of Service: 01/28/24
[2024-01-28] MEDS: Metoprolol Succinate ER 25 MG TAB.ER.24H PO (09:52)
[2024-01-28] MEDS: Doxycycline Monohydrate 100 MG CAPSULE PO (09:52)
[2024-01-28] MEDS: lisinopriL 2.5 MG TABLET PO (09:53)
[2024-01-28] MEDS: Aspirin Enteric Coated 81 MG TABLET.DR PO (09:53)
[2024-01-28] MEDS: metroNIDAZOLE 500 MG TABLET 1000 MG PO (09:53)
[2024-01-28] MEDS: Bismuth Subsalicylate 262 MG TABLET 524 MG PO ×2 (09:53→12:04)
[2024-01-28] MEDS: 0.9 % Sodium Chloride Flush 3 ML SYRINGE IVFLUSH (09:53)
[2024-01-28] MEDS: Cholecalciferol (Vitamin D3) 25 MCG TABLET PO (09:53)
[2024-01-28 11:45] VITALS: BP 119/66; PULSE 66; RESP 18; TEMP 37.1; O2SAT 94
--- NOTE | 2024-01-28 12:50 | HO.PM.IMPN ---
Subjective Subjective Date of Service: 01/28/24 Interval History: woke up confused abd pain improved Review of Systems Review of Systems: Yes all other systems are reviewed and are negative Physical Exam Vital Signs: Vital Signs: Last Vital Signs Temp 98.8 F 01/28/24 11:45 Pulse 66 01/28/24 11:45 Resp 18 01/28/24 11:45 BP 119/66 01/28/24 11:45 Pulse Ox 94 01/28/24 11:45 O2 Del Method Room Air 01/28/24 11:45 BMI result Body Mass Index 16.5 Gen: in no acute distress HEENT: sclera anicteric, moist mucus membranes Neck: supple Lungs: clear to auscultation bilaterally Heart: regular rate and rhythm, no murmurs Abd: soft, non-tender, non-distended Ext: no edema Skin: warm/well-perfused Neuro: alert and oriented to self, no focal findings Psych: appropriate affect Objective Data Active Medications Acetaminophen (Acetaminophen 325 Mg Tablet) 650 mg PO Q6H PRN PRN Reason: Pain, Mild (Pain Scale 1-3), fever or headache Last Admin: 01/27/24 15:26 Dose: 650 mg Documented By: FRED Aspirin (Aspirin Enteric Coated 81 Mg Tablet.Dr) 81 mg PO DAILY [facility] Last Admin: 01/28/24 09:53 Dose: 81 mg Documented By: FRED Atorvastatin Calcium (Atorvastatin Calcium 80 Mg Tablet) 80 mg PO BEDTIME [facility] Last Admin: 01/27/24 21:03 Dose: 80 mg Documented By: SENA Bismuth Subsalicylate (Bismuth Subsalicylate 262 Mg Tablet) 524 mg PO QID [facility] Last Admin: 01/28/24 12:04 Dose: 524 mg Documented By: FRED Calcium Carbonate (Calcium Carbonate 750 Mg Tab.Chew) 750 mg PO Q4H PRN PRN Reason: Heartburn Doxycycline Monohydrate (Doxycycline Monohydrate 100 Mg Capsule) 100 mg PO BID [facility] Last Admin: 01/28/24 09:52 Dose: 100 mg Documented By: FRED Enoxaparin Sodium (Enoxaparin Sodium 40 Mg/0.4 Ml Syringe) 40 mg SUBCUT Q24H [facility] Last Admin: 01/27/24 18:55 Dose: 40 mg Documented By: FRED Lisinopril (Lisinopril 2.5 Mg Tablet) 2.5 mg PO DAILY [facility]; Protocol Last Admin: 01/28/24 09:53 Dose: 2.5 mg Documented By: FRED Lorazepam (Lorazepam 0.5 Mg Tablet) 0.5 mg PO Q8H PRN PRN Reason: anxiety Last Admin: 01/28/24 00:32 Dose: 0.5 mg Documented By: SENA Magnesium Hydroxide (Milk Of Magnesia 30 Ml Oral.Susp) 30 ml PO DAILY PRN PRN Reason: Constipation Melatonin (Melatonin 3 Mg Tablet) 6 mg PO BEDTIME PRN PRN Reason: Insomnia Metoprolol Succinate (Metoprolol Succinate Er 25 Mg Tab.Er.24h) 25 mg PO DAILY [facility]; Protocol Last Admin: 01/28/24 09:52 Dose: 25 mg Documented By: FRED Metronidazole (Metronidazole 500 Mg Tablet) 1,000 mg PO BID [facility] Last Admin: 01/28/24 09:53 Dose: 1,000 mg Documented By: FRED Omeprazole (Omeprazole 20 Mg Capsule.Dr) 20 mg PO DAILY@0630 [facility] Last Admin: 01/28/24 06:29 Dose: 20 mg Documented By: SENA Ondansetron HCl (Ondansetron Hcl 4 Mg/2 Ml Vial) 4 mg IVPUSH Q8H PRN PRN Reason: Nausea and Vomiting Sodium Chloride (0.9 % Sodium Chloride Flush 3 Ml Syringe) 3 ml IVFLUSH QSHIFT [facility] Last Admin: 01/28/24 09:53 Dose: 3 ml Documented By: FRED Vitamin D (Cholecalciferol (Vitamin D3) 25 Mcg Tablet) 25 mcg PO DAILY [facility] Last Admin: 01/28/24 09:53 Dose: 25 mcg Documented By: FRED Labs 01/26/24 10:42 01/26/24 10:42 Labs: Laboratory Results - last 24 hr 01/27/24 01/27/24 12:35 14:24 Troponin I High Sens 5.8 C. difficile Tox B Gene NEGATIVE Assessment and Plan (1) Encephalopathy: Status: Acute Plan d3 for 83yo F with HTN, HLD, osteoporosis, GERD, Helicobacter pylori infection currently being treated presenting with dizziness + confusion x 3 months encephalopathy vs. incipient dementia - CT showed global atrophy and small-vessel occlusive disease that can not exclude acute stroke/nonhemorrhagic ischemia - MRI showed no acute intracranial abnormalities; chronic microangiopathy and global cerebral atrophy. - Neuro consulted, vascular/degenerative dementia dizziness - orthostatics negative, MRI as above bone marrow heterogeneity concerning for calcium metabolic disorder vs malignancy - Ca/iPTH/25-OH D axis normal; immunofixation panel pending; outpt evaluation H pylori infection - continue quadruple therapy with doxycycline, omeprazole, bismuth, and metronidazole HTN - lisinopril + metoprolol succinate HLD - continue statin VTE prophylaxis - enoxaparin dispo - per PT home with VNA but family considering SNF In my clinical judgment, the patient requires continued inpatient hospitalization for the following reasons: placement Total time managing care of this patient today: 35 minutes. Quality Stroke Does the patient have a stroke diagnosis?: No VTE Prior VTE?: No VTE Risk Level:: Medical - moderate - high VTE Device Contraindication: Treatment Not Indicated VTE Drug Contraindication: N/A - Med Ordered
--- NOTE | 2024-01-28 13:05 | MHC.CM.PN ---
Per MD, Patient is medically cleared for dc to home today, with services. A referral was made to [facility], who has been made aware of today's dc. SRAVANI spoke with Son-in-Law/Nj at listed #, who is on his way in to transport Patient to home.
--- NOTE | 2024-01-28 13:34 | W.MHC.F2F ---
Service Date Service Date: 01/28/24 Encounter Date of encounter: 01/28/24 Reasons for Services Signs and symptoms assessed: dementia Reason for senior living: neurological assessment, medication management, medication treatment and teach disease management Reason for physical therapy: home safety and mobility, therapeutic exercises, gait/transfer training, assess need for DME, ADL training and energy conservation Reason for occupational therapy: home safety and mobility, therapeutic exercises, gait/transfer training, assess need for DME, ADL training and energy conservation MD Overseeing Care: Nino Jackson Homebound: Leaving the home is medically contraindicated at this time without the asist of a device and/or another person due th the listed conditions above and below. Reason homebound: unsteady gait / fall risk and cognitively impaired / unsafe Certification: Based on the above findings, I certify that this patient is confined to the home and needs intermittent senior living care, physical therapy and/or speech therapy, or continues to need occupational therapy. The patient is under my care, and I have initiated the establishment of the plan of care. The patient will be followed by a physician who will periodically review the plan of care. Time Spent With Patient Time: Total time managing care of this patient today ____ minutes.
--- NOTE | 2024-01-28 13:37 | PM.DS ---
DS: Providers Provider Date of Service: 01/28/24 Date of admission: 01/26/24 17:32 Date of discharge: 01/28/24 Primary care physician: Nino Jackson MD Consults: 01/27/24 07:48 Consult to Neurology Routine Consulting Provider: [facility] Reason for consultation: AMS DS: Diagnosis Discharge Diagnosis (1) Dementia: Status: Acute (2) Bone marrow disease: Status: Acute DS: Summary Hospital Course Hospital Course: From the history and physical by the admitting hospitalist, JEWEL Dasilva, 01/26/24: Pt is an 83-year-old female with a PMH significant for?HTN, HLD, osteoporosis, H pylori, and GERD who presents to the ED with multiple complaints, though primarily?lightheadness and confusion of unclear duration. Pt is overall a poor historian and unable to offer concrete details or timeline. Initially presented to the ED complaining of ?I am lost?. Patient also complains of being nervous and then becoming lightheaded and dizzy that does not appear to be positional. She is unable to clarify symptoms or indicate duration of symptoms, but denies feeling like the room is spinning. Last known well time unclear. Also complains of lower abdominal pain. Lives with her grandson but was brought in by her daughter who reports pt is usually AOx4 and is currently not at baseline. Denies chest pain/pressure, palpitations. No fever, chills, nausea, vomiting, or diarrhea. Denies shortness or breath or difficulty breathing. No cough. Of note, unable to contact family via phone concerning patient's symptoms and their duration. In the ED pt was hypertensive up to 162/87, vitals otherwise stable and WNL. Orthostatics negative Labs were grossly unremarkable and baseline for patient. No leukocytosis. Stable H&H. No significant electrolyte abnormalities. Renal function baseline hepatic function baseline. Initial troponin 5.4. UA negative for UTI. CT?of head showed no acute intracranial hemorrhage, but showed small-vessel occlusive disease with superimposed acute stroke/nonhemorrhagic ischemia can not be excluded. Also showed global atrophy and calcium metabolic disorder versus malignancy. CT of abdomen and pelvis found abundant stool with no obstruction, as well as bone marrow inhomogeneity suggesting calcium metabolic disorder though malignancy can not be excluded. EKG demonstrated normal sinus rhythm with LBBB, similar to prior. Pt was treated with acetaminophen and meclizine. Pt will be admitted to the hospital under observation for treatment and further evaluation of acute encephalopathy concerning for CVA versus worsening dementia 83yo F with HTN, HLD, osteoporosis, GERD, Helicobacter pylori infection currently being treated. Presented with dizziness + worsening confusion x 3 months. Admitted for evaluation of possible encephalopathy. CT showed global atrophy and small-vessel occlusive disease that can not exclude acute stroke/nonhemorrhagic ischemia. MRI showed no acute intracranial abnormalities; chronic microangiopathy and global cerebral atrophy. TSH and B12 normal. No evidence for UTI. Per Neurology consultation, likely vascular/degenerative dementia. Seen by PT and home PT/VNA services recommended and set up. Orthostatic vital signs negative and dizziness did not recur. CT did show incidental bone marrow heterogeneity concerning for calcium metabolic disorder vs malignancy. Ca/iPTH/25-OH D axis normal; immunofixation panel pending at the time of discharge and further workup can be pursued by her primary care doctor. Time Attestation Discharge Coordination Time (in mins): 40 Quality: Safe Use of Opioids Does Pt have an Active Cancer Diagnosis on the Problem List?: No Quality: Stroke Does the patient have a stroke diagnosis?: No Physical Exam Vital Signs: Vital Signs: Last Vital Signs Temp 98.8 F 01/28/24 11:45 Pulse 66 01/28/24 11:45 Resp 18 01/28/24 11:45 BP 119/66 01/28/24 11:45 Pulse Ox 94 01/28/24 11:45 O2 Del Method Room Air 01/28/24 11:45 BMI result Body Mass Index 16.5 Gen: in no acute distress HEENT: sclera anicteric, moist mucus membranes Neck: supple Lungs: clear to auscultation bilaterally Heart: regular rate and rhythm, no murmurs Abd: soft, non-tender, non-distended Ext: no edema Skin: warm/well-perfused Neuro: alert and oriented to self, no focal findings Psych: appropriate affect DS: Data Data Completed and Pending Completed studies during hospitalization [Text1]: Laboratory Results WBC 6.7 X10*3/uL (4.8-10.8) 01/26/24 10:42 RBC 4.80 X10*6/uL (4.20-5.50) 01/26/24 10:42 Hgb 14.6 g/dl (12.0-16.0) 01/26/24 10:42 Hct 43.8 % (37.0-47.0) 01/26/24 10:42 MCV 91.3 fL (80.0-98.0) 01/26/24 10:42 MCH 30.4 pg (27.0-33.0) 01/26/24 10:42 MCHC 33.3 g/dl (31.0-35.0) 01/26/24 10:42 RDW 13.6 % (11.0-16.0) 01/26/24 10:42 Plt Count 241 X10*3/uL (160-400) 01/26/24 10:42 MPV 10.0 fL (9.4-12.3) 01/26/24 10:42 Immature Gran % (Auto) 0.3 % (0.0-0.4) 01/26/24 10:42 Neut % (Auto) 70.6 % (45-73) 01/26/24 10:42 Lymph % (Auto) 19.7 % (20-40) L 01/26/24 10:42 [place] % (Auto) 8.1 % (2-11) 01/26/24 10:42 Eos % (Auto) 0.5 % (0-4) 01/26/24 10:42 Baso % (Auto) 0.8 % (0-2) 01/26/24 10:42 Lymph # (Auto) 1.3 X10*3/uL (1.2-4.9) 01/26/24 10:42 [place] # (Auto) 0.5 X10*3/uL (0.1-1.2) 01/26/24 10:42 Eos # (Auto) 0.0 X10*3/uL (0.0-0.4) 01/26/24 10:42 Baso # (Auto) 0.1 X10*3/uL (0.0-0.2) 01/26/24 10:42 Abs Immat Gran (auto) 0.02 X10*3/uL (0.00-0.03) 01/26/24 10:42 Absolute Neuts (auto) 4.7 x10*3/uL (2.0-8.3) 01/26/24 10:42 Absolute Nucleated RBC 0.000 X10*3/uL (0.0-0.012) 01/26/24 10:42 Nucleated RBC % (auto) 0.0 /100WBC (0.0-0.2) 01/26/24 10:42 Sodium 144 mmol/L (135-145) 01/26/24 10:42 Potassium 4.1 mmol/L (3.3-5.1) 01/26/24 10:42 Chloride 106 mmol/L (96-108) 01/26/24 10:42 Carbon Dioxide 31 mmol/L (22-29) H 01/26/24 10:42 Anion Gap 11 (12-20) L 01/26/24 10:42 BUN 11 mg/dL (9-16) 01/26/24 10:42 Creatinine 0.71 mg/dL (0.5-1.4) 01/26/24 10:42 Estim Creat Clear Calc 41.1 01/26/24 10:42 Estimated GFR > 60 01/26/24 10:42 Random Glucose 107 mg/dL (60-115) 01/26/24 10:42 Calcium 8.7 mg/dL (8.4-10.2) 01/26/24 10:42 Total Bilirubin 0.5 mg/dL (0.0-1.0) 01/26/24 10:42 AST 23 U/L (5-31) 01/26/24 10:42 ALT 11 U/L (0-31) 01/26/24 10:42 Alkaline Phosphatase 50 U/L (39-117) 01/26/24 10:42 Troponin I High Sens 5.8 ng/L (<3.5-17.0) 01/27/24 14:24 Total Protein 6.1 g/dL (6.5-8.0) L 01/26/24 10:42 Albumin 3.5 g/dL (3.5-5.0) 01/26/24 10:42 Lipase 15 U/L (8-78) 01/26/24 10:42 Vitamin B12 797 pg/mL (200-900) 01/26/24 18:23 25-OH Vitamin D Total 57.7 ng/mL (>30) 01/26/24 18:23 Folate 15.5 ng/mL (> or = 4.0) 01/26/24 18:23 TSH 2.98 uIU/mL (0.32-4.0) 01/26/24 10:42 PTH Intact 57.9 pg/mL (8.7-77.1) 01/26/24 18:23 Urine Color Yellow 01/26/24 14:15 Urine Appearance Clear 01/26/24 14:15 Urine pH 7.0 (5.0-9.0) 01/26/24 14:15 Ur Specific [place] >= 1.030 (1.005-1.025) H 01/26/24 14:15 Urine Protein Negative mg/dL (Neg-Trace) 01/26/24 14:15 Urine Glucose (UA) Negative mg/dL (Negative) 01/26/24 14:15 Urine Ketones Negative mg/dL (Negative) 01/26/24 14:15 Urine Blood Trace (Negative) H 01/26/24 14:15 Urine Nitrite Negative (Negative) 01/26/24 14:15 Ur Leukocyte Esterase Negative (Negative) 01/26/24 14:15 Urine RBC 6-10 /HPF (0-2) H 01/26/24 14:15 Urine WBC 0-5 /HPF (0-5) 01/26/24 14:15 Ur Squamous Epith Cells 0-2 /HPF (0-2) 01/26/24 14:15 Urine Bacteria None Seen (None Seen) 01/26/24 14:15 Hyaline Casts 0-2 /LPF (0-2) 01/26/24 14:15 C. difficile Tox B Gene NEGATIVE (Negative) 01/27/24 12:[address] 01/26/24 11:19 IMPRESSION: No acute intracranial hemorrhage. Small vessel occlusive disease. Superimposed acute stroke/nonhemorrhagic ischemia cannot be excluded. Global atrophy. Calcium metabolic disorder versus malignancy. Electronically signed by: Robson Jeff MD 01/26/2024 01:52 PM [facility] Abdomen/Pelvis CT 01/26/24 12:00 IMPRESSION: Abundant stool. No intestinal obstruction pattern. Diverticular disease, left hemicolon. Hiatal hernia, moderate to large size. Atherosclerosis disease. Bone marrow inhomogeneity suggesting calcium metabolic disorder. Malignancy cannot be excluded. Fleischner guidelines were followed. Electronically signed by: Robson Jeff MD 01/26/2024 01:49 PM EST RP Brain MRI 01/27/24 18:43 IMPRESSION: -No acute intracranial abnormalities. -Chronic microangiopathy and global cerebral atrophy. Electronically signed by: Celi Tyler MD 01/28/2024 09:10 AM EST RP Discharge Plan Discharge Anticipated Discharge Date/Time: 01/28/24 13:28 Patient Disposition: Home Health Service Discharge Diagnosis: dementia bone marrow heterogeneity concerning for calcium metabolic disorder vs malignancy Referrals: [facility] [Outside] - 1 Week Nino Jackson MD [Primary Care Provider] - 1 Week Madhuri Gillis MD [Physician] - 1 Month Discharge Medications: Continued bismuth subsalicylate [Bismuth] 262 mg tablet,chewable 2 tab PO QID 14 Days Qty: 112 0RF metronidazole 500 mg tablet 1,000 mg PO BID 14 Days Qty: 56 0RF doxycycline hyclate 100 mg tablet 100 mg PO BID 14 Days Qty: 28 0RF omeprazole 20 mg capsule,delayed release(DR/EC) 20 mg PO DAILY Qty: 30 3RF rosuvastatin 20 mg tablet 20 mg PO BEDTIME cholecalciferol (vitamin D3) 25 mcg (1,000 unit) capsule 25 mcg PO DAILY aspirin [Adult Low Dose Aspirin] 81 mg tablet,delayed release (DR/EC) 81 mg PO DAILY lorazepam 0.5 mg tablet 0.5 mg PO Q8H PRN (Reason: anxiety) lisinopril 2.5 mg tablet 2.5 mg PO DAILY metoprolol succinate 25 mg tablet extended release 24 hr 25 mg PO DAILY Discharge Orders: Discharge Order (Routine); Ordered 01/28/24 Ordered By: Stephane Stewart Diet: Advance to usual diet Activity on Discharge: As tolerated Stand Alone Forms: Patient Portal Discharge page Print Language: Citizen Of [place] Care Plan Goals: management of dementia Health Concerns: dementia bone marrow heterogeneity concerning for calcium metabolic disorder vs malignancy Plan of Treatment: home with VNA services outpatient neurology follow-up Please follow up with your primary care doctor within 1 week. Return to the hospital if you experience recurrent or worsening symptoms Pending lab at the time of discharge: serum immunofixation. Discuss further workup of bone marrow abnormality with your primary care doctor. Assessment: See Discharge Summary.
[2024-01-29 22:28] LABS: IgA 232 mg/dL (70-320); IgG 911 mg/dL (600-1540); IgM 78 mg/dL (50-300)
== END 2024-01-28 14:16 | disposition home health service (06) ==
LOC: HO.ED 15:33 → HO.EDOVER 17:52 → HO.IMC 19:18
PROVIDERS: Physician Assistant; Admitting Provider Student in an Organized Health Care Education/Training Program; Emergency Provider Emergency Medicine Emergency Medical Services; PCP Internal Medicine; Visit Provider Family Medicine
DX: F01.50 Vascular dementia, unspecified severity, without behavioral disturbance, psychotic disturbance, mood disturbance, and anxiety (principal); B96.81 Helicobacter pylori [H. pylori] as the cause of diseases classified elsewhere; R42 Dizziness and giddiness; D61.89 Other specified aplastic anemias and other bone marrow failure syndromes; J44.9 Chronic obstructive pulmonary disease, unspecified; I10 Essential (primary) hypertension; R10.9 Unspecified abdominal pain; R41.0 Disorientation, unspecified; E78.5 Hyperlipidemia, unspecified; K21.9 Gastro-esophageal reflux disease without esophagitis; Z79.899 Other long term (current) drug therapy
CPT/HCPCS: 36415; 70450; 70551; 74177; 80053; 81001; 82306; 82607; 82746; 82784; 83690; 83970; 84443; 84484; 85025; 86334; 87493; 93005; 96372; 97162; 99222; 99285; J1650; Q9967

== ENCOUNTER → 2024-01-26 11:19 | Outpatient (BNV) | payer MEDICARE, SELFPAY | PROVIDERS: Emergency Provider Emergency Medicine Emergency Medical Services; PCP Internal Medicine; Visit Provider Radiology Diagnostic Radiology | DX: R10.9 Unspecified abdominal pain (principal); R41.82 Altered mental status, unspecified | CPT/HCPCS: 70450; 74177 ==

== ENCOUNTER → 2024-01-26 11:53 | Outpatient (BNV) | payer MEDICARE, SELFPAY | PROVIDERS: Admitting Provider Student in an Organized Health Care Education/Training Program; Emergency Provider Emergency Medicine Emergency Medical Services; PCP Internal Medicine; Visit Provider Internal Medicine | DX: R07.9 Chest pain, unspecified (principal); I44.7 Left bundle-branch block, unspecified; R94.31 Abnormal electrocardiogram [ECG] [EKG] | CPT/HCPCS: 93010 ==

== ENCOUNTER 2024-01-26 17:32 | Outpatient (BNV) | payer MEDICARE, SELFPAY | END 2024-01-27 11:28 | PROVIDERS: Admitting Provider Student in an Organized Health Care Education/Training Program; Emergency Provider Emergency Medicine Emergency Medical Services; PCP Internal Medicine; Visit Provider Internal Medicine | DX: R07.9 Chest pain, unspecified (principal); I44.7 Left bundle-branch block, unspecified; R94.31 Abnormal electrocardiogram [ECG] [EKG] | CPT/HCPCS: 93010 ==

== ENCOUNTER → 2024-01-26 17:32 | Outpatient (BNV) | payer MEDICARE, SELFPAY | PROVIDERS: Admitting Provider Student in an Organized Health Care Education/Training Program; Emergency Provider Emergency Medicine Emergency Medical Services; PCP Internal Medicine; Visit Provider Student in an Organized Health Care Education/Training Program | DX: D75.9 Disease of blood and blood-forming organs, unspecified (principal); F03.90 Unspecified dementia, unspecified severity, without behavioral disturbance, psychotic disturbance, mood disturbance, and anxiety; G93.40 Encephalopathy, unspecified | CPT/HCPCS: 99222; 99232; 99239; G0180 ==

== ENCOUNTER → 2024-01-26 17:32 | Outpatient (BNV) | payer MEDICARE, SELFPAY | PROVIDERS: Admitting Provider Student in an Organized Health Care Education/Training Program; Emergency Provider Emergency Medicine Emergency Medical Services; PCP Internal Medicine; Visit Provider Psychiatry & Neurology Neurology | DX: G93.40 Encephalopathy, unspecified (principal) | CPT/HCPCS: 99222 ==

== ENCOUNTER 2024-02-05 11:03 | Outpatient (AMB) | payer MEDICARE, SELFPAY ==
--- NOTE | 2024-02-05 11:06 | A.OFFVIS_ITS ---
Vital Signs 02/05/24 11:07 Height 5 ft 3 in Weight 96 lb 8.999 oz BMI 17.1 BP 120/66 Blood Pressure Location Rt brachial Position Sitting Pulse 88 Pulse Source Pulse Oximeter Pulse Oximetry (%) 94 Oxygen Delivery Method Room Air Intake Visit Reasons: Early follow up Per Stephanie Intake Note: ESTABLISHED PATIENT Kassidy presents in office today for a scheduled FUV. Recently seen in ED Meds reviewed, Allergies reviewed? Y No recent surgeries? None since last visit. Any significant concerns or new changes? ED concerns, and diarrhea. Pharmacy verified? [facility]. 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 pylori) IBS (irritable bowel syndrome) GERD (gastroesophageal reflux disease) Abdominal bloating Weight loss, unintentional Plan Weight loss of 15 lb in the last couple years. Patient admits that she eats and has good appetite. Family states that they will help her eat more calories, more protein. Patient will get fairlife whole milk. Patient will try to get protein powder to put in her milk. Positive H pylori. Will try Pylera combination is patient will not be able to manage for different medications to treat this. RN is to do PA. will switch PPI to omeprazole. Patient will follow-up in our office in 2 months to re-evaluate. We will send Cologuard, however discussed with patient if that comes back positive we will strongly encourage her to have a colonoscopy. Patient agreed. I would like to send her also for endoscopy to check for gastritis, esophagitis. Patient is agreeable to plan of care and verbalizes understanding of instructions. She was given the opportunity to ask questions and all questions answered. ? Thank you for allowing me to participate in her care Medications New omeprazole 20 mg PO DAILY 30 caps 3RF K21.9 bismuth subcit [id number] 140-125-125 mg (Pylera) 3 caps PO QID 14 days 168 caps 0RF B96.81, K29.70 ondansetron 4 mg PO Q8H PRN 30 tabs 0RF nausea and vomiting TODAY'S VISIT Patient is here today for follow-up. Patient was seen in the ER last week for increased confusion. Workup came back negative for any acute processes. Patient finished H pylori treatment yesterday. She continues to have loose stools postprandially. CT scan of the abdomen was done while in the ED and it showed scattered stool throughout the colon despite her having diarrhea from the antibiotics. Patient actually gained few lb since she was seen last. Patient stopped smoking after last visit in our office. Patient reports to have good appetite. Patient's grandson who lives with her is making sure that she eats good food. Patient is also drinking some protein shakes and smoothies. Patient denies any other GI concerning symptoms except for occasional loose stools. [facility] Medical History Lightheadedness Abdominal pain Helicobacter pylori (H. pylori) Osteoporosis On beta maria d at home Asthma COPD (chronic obstructive pulmonary disease) Hypercholesteremia HTN (hypertension) Positive FIT (fecal immunochemical test) Surgical History History of surgical removal of ganglion cyst Hx of hysterectomy Hx of bilateral cataract extraction Hx of colonoscopy Family History Daughter Parkinson disease Breast cancer Brother Lung cancer Daughter Heart disease Social History Household Members: Other Household Members Other:: Grandson: Balta Housing: House Do you presently have visiting nurse or other home services: No Alcohol intake: never Patient Tobacco Use Status: Never used Tobacco Tobacco use type: Cigarette Cigarette Packs Per Day: 0.5 Cigarettes Per Day: 10.0 Years Smoked: over 30 years e-Cigarette/Vaping Use: Never Used Second Hand Smoke Exposure: Yes service: No Review of Systems Const Denies weight gain and Denies weight loss ENT Reports no additional complaints, Denies dysphagia and Denies odynophagia Card Reports no additional complaints Resp Reports no additional complaints GI Denies abdominal pain, Denies belching, Denies melena, Denies bloating, Denies change in bowel habits, Denies dysphagia, Denies excessive flatus, Denies dyspepsia, Denies heartburn, Denies diarrhea, Reports loose stools, Denies nausea, Denies odynophagia and Denies vomiting Reports no additional complaints Musc Reports no additional complaints Neuro Reports no additional complaints Psych Reports no additional complaints Endo Reports no additional complaints Physical Exam Vital Signs: Last Vital Signs Pulse 88 02/05/24 11:07 BP 120/66 02/05/24 11:07 Pulse Ox 94 02/05/24 11:07 Oxygen Delivery Method Room Air 02/05/24 11:07 BMI result Body Mass Index 17.1 Const General: healthy appearing, no acute distress and well developed Nutritional Appearance: underweight Orientation/consciousness: patient oriented x3 Resp Effort & Inspection: normal respiratory effort, able to speak in complete sentences, no tracheal deviation and symmetric chest movement Auscultation: clear to auscultation bilaterally Cardio Rate: regular rate GI Inspection: Yes normal to inspection and No distended Palpation (GI): Soft to palpation, not firm, nontender and No hepatosplenomegaly present Auscultation: normal bowel sounds General: Yes no CVA tenderness Back/Spine/Pelvis Back: no CVA tenderness Skin General skin exam: elasticity normal, turgor normal and dry skin Neuro General: patient oriented x3 Psych Appearance: grossly normal Mental Status: mental status grossly normal Assessment & Plan Assessment & Plan (1) Helicobacter pylori (H. pylori): Code(s): A04.8 - Other specified bacterial intestinal infections Category: Medical (2) Upper abdominal pain: Code(s): R10.10 - Upper abdominal pain, unspecified Category: Medical (3) IBS (irritable bowel syndrome): Code(s): K58.9 - Irritable bowel syndrome, unspecified Qualifiers: Irritable bowel syndrome type: with both diarrhea and constipation Qualified Code(s): K58.2 - Mixed irritable bowel syndrome (4) GERD (gastroesophageal reflux disease): Code(s): K21.9 - Gastro-esophageal reflux disease without esophagitis Qualifiers: Esophagitis presence: esophagitis presence not specified Qualified Code(s): K21.9 - Gastro-esophageal reflux disease without esophagitis (5) Abdominal bloating: Code(s): R14.0 - Abdominal distension (gaseous) Plan Patient try to add fiber with probiotic daily. Patient reports loose stools, however this is most likely from the medications that she was taking for H pylori. Patient will need to retest in 8 weeks to ensure eradication of the bacteria. Patient reports that she is feeling much better and has more appetite now. Patient gained 7 lb since last visit (in 2-1/2 weeks). Patient denies any melena, hematochezia. Denies any dyspepsia, dysphagia or odynophagia. She will continue taking omeprazole daily for now. Patient will need to stop PPI for 2 weeks before going to retest. She will need to be scheduled for colonoscopy and upper endoscopy. Patient and her family are agreeable to plan of care and verbalizes understanding of instructions. They were given the opportunity to ask questions and all questions answered. Thank you for allowing me to participate in her care Medications: Refilled omeprazole 20 mg PO DAILY 90 caps 1RF K21.9 - Gastro-esophageal reflux disease without esophagitis Coding Level of Care Code Est Pt Level 3 (88309) Complex EM visit Add On G2211 Diagnoses Helicobacter pylori (H. pylori) A04.8 Upper abdominal pain R10.10 Irritable bowel syndrome with both constipation and diarrhea K58.2 Irritable bowel syndrome type: with both diarrhea and constipation Gastroesophageal reflux disease, unspecified whether esophagitis present K21.9 Esophagitis presence: esophagitis presence not specified Abdominal bloating R14.0 Time Spent (min) 35 Comment 20 minutes spent with patient and additional 15 minutes spent reviewing her records
[2024-02-05 11:07] VITALS: BP 120/66; PULSE 88; O2SAT 94; BMI 17.1
== END 2024-02-05 11:35 | disposition home or self-care (01) ==
PROVIDERS: PCP Internal Medicine; Visit Provider Nurse Practitioner Family
DX: A04.8 Other specified bacterial intestinal infections (principal); R10.10 Upper abdominal pain, unspecified; K58.2 Mixed irritable bowel syndrome; K21.9 Gastro-esophageal reflux disease without esophagitis; R14.0 Abdominal distension (gaseous)
CPT/HCPCS: 99213; G2211

== ENCOUNTER → 2024-02-05 11:03 | Outpatient (BNVA) | payer MEDICARE, SELFPAY | PROVIDERS: PCP Internal Medicine; Visit Provider Nurse Practitioner Family | DX: K58.2 Mixed irritable bowel syndrome (principal); K21.9 Gastro-esophageal reflux disease without esophagitis; R10.10 Upper abdominal pain, unspecified; R14.0 Abdominal distension (gaseous); A04.8 Other specified bacterial intestinal infections | CPT/HCPCS: 99212 ==

== ENCOUNTER 2024-04-03 10:06 | Outpatient (AMB) | payer MEDICARE, SELFPAY ==
[2024-04-03 10:11] VITALS: BP 141/84; BMI 16.2
--- NOTE | 2024-04-03 10:11 | A.OFFVIS_ITS ---
Vital Signs 04/03/24 10:11 Height 5 ft 3 in Weight 91 lb 4.342 oz BMI 16.2 BP 141/84 H Blood Pressure Location Rt brachial Position Sitting Intake Visit Reasons: 2 month follow up Intake Note: Kassidy presents in office today in 2 months follow up of epigastric pain, CC: Patient c/o epigastric pain and burning. Denies other GI symptoms. Allergies amoxicillin [AMOXICILLIN] Allergy (Intermediate, Verified 04/03/24 10:16) ITCHY EYES/RASH codeine [CODEINE] Allergy (Unknown, Verified 04/03/24 10:16) RASH zocor Allergy (Unknown, Uncoded 11/21/22 13:48) muscle pain HPI HPI 2 month follow up: Details: LAST VISIT Helicobacter pylori (H. pylori) Upper abdominal pain IBS (irritable bowel syndrome) GERD (gastroesophageal reflux disease) Abdominal bloating Plan Patient try to add fiber with probiotic daily. Patient reports loose stools, however this is most likely from the medications that she was taking for H pylori. Patient will need to retest in 8 weeks to ensure eradication of the bacteria. Patient reports that she is feeling much better and has more appetite now. Patient gained 7 lb since last visit (in 2-1/2 weeks). Patient denies any melena, hematochezia. Denies any dyspepsia, dysphagia or odynophagia. She will continue taking omeprazole daily for now. Patient will need to stop PPI for 2 weeks before going to retest. She will need to be scheduled for colonoscopy and upper endoscopy. Patient and her family are agreeable to plan of care and verbalizes understanding of instructions. They were given the opportunity to ask questions and all questions answered. ? Thank you for allowing me to participate in her care Medications Refilled omeprazole 20 mg PO DAILY 90 caps 1RF K21.9 TODAY'S VISIT Patient is here today for follow-up. Recently treated for H pylori with quadruple therapy. Patient finished the medication currently is not taking PPI not sure why patient started that she was only supposed to take it for 2 weeks. Describes her epigastric pain as burning the only thing that is sitting and making her feel better are honey sticks. Patient reports to have fair appetite, previously patient did not want to go for colonoscopy or endoscopy but I believe that we should send her, or if these do upper GI with barium swallow. Patient will need to return to the office to repeat H pylori. Patient denies any nausea or vomiting. Reports that she is moving her bowels well without any issues. Denies any melena, hematochezia, unintentional weight loss or ribbon like stools. We have tried to book colonoscopy with patient, however unsure why this was canceled. Patient usually eats meals that are bought by her grandson. Things like breakfast sent which or quick meals. I did gave patient list of food that is recommended low FODMAP diet was recommended to her and staying away from dietary triggers that cause GI upset. REPLACED BY [facility] Medical History Lightheadedness Abdominal pain Helicobacter pylori (H. pylori) Osteoporosis On beta maria d at home Asthma COPD (chronic obstructive pulmonary disease) Hypercholesteremia HTN (hypertension) Positive FIT (fecal immunochemical test) Surgical History History of surgical removal of ganglion cyst Hx of hysterectomy Hx of bilateral cataract extraction Hx of colonoscopy Family History Daughter Parkinson disease Breast cancer Brother Lung cancer Daughter Heart disease Social History Household Members: Other Household Members Other:: Grandson: Balta Housing: House Do you presently have visiting nurse or other home services: No Alcohol intake: never Patient Tobacco Use Status: Never used Tobacco Tobacco use type: Cigarette Cigarette Packs Per Day: 0.5 Cigarettes Per Day: 10.0 Years Smoked: over 30 years e-Cigarette/Vaping Use: Never Used Second Hand Smoke Exposure: Yes service: No Review of Systems Const Denies weight gain and Denies weight loss ENT Reports no additional complaints, Denies dysphagia and Denies odynophagia Card Reports no additional complaints Resp Reports no additional complaints GI Reports abdominal pain (Epigastric), Denies belching, Denies melena, Reports bloating, Denies change in bowel habits, Denies dysphagia, Denies excessive flatus, Reports dyspepsia, Reports heartburn, Denies diarrhea, Reports loose stools, Denies nausea, Denies odynophagia and Denies vomiting Reports no additional complaints Musc Reports no additional complaints Neuro Reports no additional complaints Psych Reports no additional complaints Endo Reports no additional complaints Physical Exam Vital Signs: Last Vital Signs BP 141/84 H 04/03/24 10:11 BMI result Body Mass Index 16.2 Const General: no acute distress Nutritional Appearance: underweight Orientation/consciousness: patient oriented x3 Resp Effort & Inspection: normal respiratory effort, able to speak in complete sen tences, no tracheal deviation and symmetric chest movement Auscultation: clear to auscultation bilaterally Cardio Rate: regular rate GI Inspection: Yes normal to inspection and No distended Palpation (GI): Soft to palpation, not firm, nontender and No hepatosplenomegaly present Auscultation: normal bowel sounds General: Yes no CVA tenderness Back/Spine/Pelvis Back: no CVA tenderness Skin General skin exam: elasticity normal, turgor normal and dry skin Neuro General: patient oriented x3 Psych Appearance: grossly normal Mental Status: mental status grossly normal Assessment & Plan Assessment & Plan (1) Helicobacter pylori (H. pylori): Code(s): A04.8 - Other specified bacterial intestinal infections Category: Medical (2) Upper abdominal pain: Code(s): R10.10 - Upper abdominal pain, unspecified Category: Medical (3) IBS (irritable bowel syndrome): Code(s): K58.9 - Irritable bowel syndrome, unspecified Qualifiers: Irritable bowel syndrome type: without diarrhea Qualified Code(s): K58.9 - Irritable bowel syndrome, unspecified (4) GERD (gastroesophageal reflux disease): Code(s): K21.9 - Gastro-esophageal reflux disease without esophagitis Qualifiers: Esophagitis presence: esophagitis presence not specified Qualified Code(s): K21.9 - Gastro-esophageal reflux disease without esophagitis (5) Abdominal bloating: Code(s): R14.0 - Abdominal distension (gaseous) (6) Postprandial epigastric pain: Code(s): R10.13 - Epigastric pain Plan Patient will start taking sucralfate twice a day in the morning and at bedtime. Patient was instructed to take it 2 hours after she takes her medication to avoid interactions. Avoid dietary triggers and late night snacking. Staying upright for minimum 3 hours after meals discussed with patient. Patient will return in the office tomorrow or [place], making sure that she will be NPO for 1 hour. Today patient is in the office and eating honey sticks. Discussed with patient to stay away for anything that is high in sugar. Protein encouraged. Stay away from lactose milk. Encouraged patient to get Fairlife milk, get Orgain protein powder. Stay away from fried food. Discussed with patient avoiding fast food. Patient will return in 5 weeks to re-evaluate. We will discuss going for possible upper endoscopy and colonoscopy. Both patient and h er family are agreeable plan of care and verbalizes understanding of instructions. They were given the opportunity to ask questions and all questions answered. Thank you for allowing me to participate in her care Medications: New sucralfate 1 g PO BID 60 tabs 1RF R19.7 - Diarrhea, unspecified Coding Level of Care Code Est Pt Level 4 (29592) Complex EM visit Add On G2211 Diagnoses Helicobacter pylori (H. pylori) A04.8 Upper abdominal pain R10.10 Irritable bowel syndrome without diarrhea K58.9 Irritable bowel syndrome type: without diarrhea Gastroesophageal reflux disease, unspecified whether esophagitis present K21.9 Esophagitis presence: esophagitis presence not specified Abdominal bloating R14.0 Postprandial epigastric pain R10.13 Time Spent (min) 40 Comment 25 minutes spent with patient and additional 15 minutes spent reviewing her records
== END 2024-04-03 10:39 | disposition home or self-care (01) ==
PROVIDERS: PCP Internal Medicine; Visit Provider Nurse Practitioner Family
DX: A04.8 Other specified bacterial intestinal infections (principal); R10.10 Upper abdominal pain, unspecified; K58.9 Irritable bowel syndrome, unspecified; K21.9 Gastro-esophageal reflux disease without esophagitis; R14.0 Abdominal distension (gaseous); R10.13 Epigastric pain
CPT/HCPCS: 99214; G2211

== ENCOUNTER → 2024-04-03 10:06 | Outpatient (BNVA) | payer MEDICARE, SELFPAY | PROVIDERS: PCP Internal Medicine; Visit Provider Nurse Practitioner Family | DX: A04.8 Other specified bacterial intestinal infections (principal); R10.10 Upper abdominal pain, unspecified; K58.9 Irritable bowel syndrome, unspecified; K21.9 Gastro-esophageal reflux disease without esophagitis; R14.0 Abdominal distension (gaseous); R10.13 Epigastric pain | CPT/HCPCS: 99212 ==

== ENCOUNTER 2024-04-08 11:48 | Outpatient (AMB) | payer MEDICARE, SELFPAY ==
--- NOTE | 2024-04-08 12:05 | AM.OFFVISNUR ---
Vital Signs 04/08/24 12:05 Weight 92 lb 2.452 oz Intake Visit Reasons: H Pylori BT. Hold Sucralfate <24 hrs. Allergies amoxicillin [AMOXICILLIN] Allergy (Intermediate, Verified 04/03/24 10:16) ITCHY EYES/RASH codeine [CODEINE] Allergy (Unknown, Verified 04/03/24 10:16) RASH zocor Allergy (Unknown, Uncoded 11/21/22 13:48) muscle pain Nursing Note Patient presents for collection of H Pylori breath test. Patient has been fasting for 1 hour (nothing to eat, drink, no chewing gum or smoking) has not taken any antacid medication for at least 2 weeks and has no allergies to artificial sweeteners.?? Assessment & Plan Assessment & Plan (1) Helicobacter pylori (H. pylori): Code(s): A04.8 - Other specified bacterial intestinal infections Category: Medical (2) Upper abdominal pain: Code(s): R10.10 - Upper abdominal pain, unspecified Category: Medical Plan Patient presents for collection of H Pylori breath test. Patient has been fasting for 1 hour (nothing to eat, drink, no chewing gum or smoking) has not taken any antacid medication for at least 2 weeks and has no allergies to artificial sweeteners.???This test checks for an overgrowth of bacteria in your stomach. We all have bacteria but some may have more than others. It is treatable. if the test comes back negative there is nothing else to do. If the test result is positive we will treat you with 2 antibiotics and a medication to decrease the acid in your stomach (PPI) for 2 weeks. Two weeks after you have completed the treatment we will retest you to make sure the overgrowth has resolved. Orders: Orders H Pylori Breath Test Today Patient Instructions: Process for specimen collection and reason for testing was explained to the patient. Specimen collection. Patient instructed to take a deep breath and then exhale into the blue bag, filling it up as much as possible. Patient instructed to drink a mixture of water and the artificial sweetener with a straw. A 15 minute wait period was observed. Patient instructed to take a deep breath and then exhale into the pink bag, filling it up as much as possible.? Coding Level of Care Code Established Pt Est Pt Level 1 (63900) Patient Type Established Medical Decision Making Straight Forward Diagnoses Helicobacter pylori (H. pylori) A04.8 Upper abdominal pain R10.10
== END 2024-04-08 12:09 | disposition home or self-care (01) ==
PROVIDERS: PCP Internal Medicine; Visit Provider Nurse Practitioner Family
DX: A04.8 Other specified bacterial intestinal infections (principal); R10.10 Upper abdominal pain, unspecified

== ENCOUNTER 2024-04-08 11:48 | Outpatient (REF) | payer MEDICARE, SELFPAY ==
[2024-04-08 15:34] LABS: H Pylori Breath Test Negative (Negative)
== END 2024-04-08 11:49 | disposition home or self-care (01) ==
LOC: HO.LNP 11:48
PROVIDERS: PCP Internal Medicine; Visit Provider Nurse Practitioner Family
DX: A04.8 Other specified bacterial intestinal infections (principal); R10.10 Upper abdominal pain, unspecified
CPT/HCPCS: 83013; 99211

== ENCOUNTER 2024-05-06 05:13 | Emergency (ER) | payer MEDICARE, SELFPAY ==
--- NOTE | 2024-05-06 | ECG_ITS ---
Test Reason : CP Blood Pressure : */* mmHG Vent. Rate : 67 BPM Atrial Rate : 67 BPM P-R Int : 152 ms QRS Dur : 150 ms QT Int : 440 ms P-R-T Axes : 93 -62 147 degrees QTcB Int : 464 ms Sinus rhythm with Premature supraventricular complexes and with occasional Premature ventricular complexes Left axis deviation Left bundle branch block Abnormal ECG When compared with ECG of 27-Jan-2024 11:28, Premature ventricular complexes are now Present Referred By: Generic ED Physician Electronically Signed By: LINDA URIBE
--- NOTE | ~2024-05-06 | XR_ITS ---
CLINICAL HISTORY: cp 1 view chest x-ray Comparison: None Findings: There is hyperexpansion of the lungs with flattening of the diaphragm. 7 mm right basilar nodular density is present. Heart size is normal. No acute fracture. IMPRESSION: 1. Imaging findings of COPD with 7 mm right basilar nodular density. Recommend CT chest for further evaluation. This document has been electronically signed by: Rogelio Mckeon on 05/06/2024 07:06:41
--- NOTE | ~2024-05-06 | CT_ITS ---
EXAMINATION: CT CHEST WITH CONTRAST CLINICAL INFORMATION: Chest pain. COMPARISON: November 01, 2010 none available on PACS system. TECHNIQUE: Multidetector volumetric CT imaging of the chest was obtained after the administration of 65 mL of Omnipaque 350 intravenous contrast without immediate adverse reactions. Axial MIP volume rendering provided. Sagittal and coronal reformatted images were obtained. This CT examination was performed using dose optimization techniques as appropriate, variously including the following: *Automated exposure control *Adjustment of mA and/or kV according to patient size (this includes techniques or standardized protocols for targeted exams where dose is matched to indication/reason for exam; i.e. extremities or head) *Use of iterative reconstruction technique. DLP: 143 mGy centimeter. FINDINGS: NEEDLE STRAIGHTENER: Hyperinflated lungs. LUNGS: There is a rhonchal septa thickening and patchy attenuation at the distal peribronchial vascular bundle is involving the right middle lung lobe lingula and right lower lung lobe. Paraseptal emphysematous changes. Bilateral apical lung scarring. No gross bronchiectasis or honeycombing. Centrilobular emphysematous changes. Respiratory airways is patent. MEDIASTINUM: Calcified lymph nodes, mediastinum and subcarinal. No aneurysm or dissection, thoracic aorta. Mixed plaques throughout the thoracic aorta wall and its main branches and the coronary arteries. No pericardial effusion. Hiatal hernia, moderate size. PLEURA: No pleural effusion. No pneumothorax. AXILLA: No lymphadenopathy. UPPER ABDOMEN: Calcified plaques in the splenic artery and the abdominal aorta wall. Hiatal hernia, moderate size. OSSEOUS STRUCTURES: Multilevel thoracolumbar spondylosis. S-shaped curvature of the thoracic spine. Trabeculated lytic lesion likely intraosseous hemangioma at T8. Osteopenia versus osteoporosis. Loss of the muscular mass volume. CT/CT chest w IV con IMPRESSION: Acute on chronic airspace disease suggesting multifocal pneumonia involving mostly the right lower lung lobe. Coronary artery disease and atherosclerosis disease. Fleischner guidelines were followed. Electronically signed by: Robson Jeff MD 05/06/2024 08:54 AM EDT
[2024-05-06 05:16] VITALS: BP 138/80; BP 140/73; PULSE 65; PULSE 76; RESP 17; TEMP 36.7; O2SAT 98; O2SAT 99; BMI 18.6
[2024-05-06 05:28] LABS: MANUAL DIFF FLAG NO
[2024-05-06 05:30] LABS: Basophils Percent Auto 0.6 % (0-2); Eosinophils Absolute Auto 0.1 X10*3/uL (0.0-0.4); Eosinophils Percent Auto 0.7 % (0-4); Hematocrit 40.3 % (37.0-47.0); Imm Gran Abs Auto 0.01 X10*3/uL (0.00-0.03); Imm Gran Pct Auto 0.1 % (0.0-0.4); Lymphocytes Absolute Auto 1.3 X10*3/uL (1.2-4.9); Lymphocytes Percent Auto 17.8 % (20-40); Mean Corpuscular HGB Conc 32.3 g/dl (31.0-35.0); Mean Corpuscular Volume 89.8 fL (80.0-98.0); Mean Platelet Volume 9.4 fL (9.4-12.3); Monocytes Absolute Auto 0.6 X10*3/uL (0.1-1.2); Neutrophils Absolute Auto 5.2 x10*3/uL (2.0-8.3); Neutrophils Percent Auto 72.8 % (45-73); Platelet Count 273 X10*3/uL (160-400); Red Blood Count 4.49 X10*6/uL (4.20-5.50); Red Cell Distribution Width 12.9 % (11.0-16.0); White Blood Count 7.1 X10*3/uL (4.8-10.8)
[2024-05-06 05:32] VITALS: BP 140/73; PULSE 83; RESP 18; TEMP 36.5; O2SAT 94
--- NOTE | 2024-05-06 05:41 | PC.NURSE ---
pt a&ox1/2. respirations even and unlabored. 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 pt reports some intermittent nausea. pt denies radiation to neck and extremities. vss. 18G placed in right bicep. labs obtained. nsr on tele.
[2024-05-06 05:47] LABS: Alanine Aminotransferase < 6 U/L (0-31); Albumin Level 3.4 g/dL (3.5-5.0); Alkaline Phosphatase 63 U/L (39-117); Anion Gap 10 (12-20); Aspartate Amino Transferase 23 U/L (5-31); Bilirubin Total 0.5 mg/dL (0.0-1.0); Blood Urea Nitrogen 12 mg/dL (9-16); Calcium 8.6 mg/dL (8.4-10.2); Carbon Dioxide 31 mmol/L (22-29); Chloride 106 mmol/L (96-108); Creatinine Clr Calc Pharmacy 46.1; Estimated Glomerular Filt Rate > 60; Glucose Random 102 mg/dL (60-115); Lipase 21 U/L (8-78); Magnesium 2.2 mg/dL (1.6-2.6); Sodium 143 mmol/L (135-145); Total Protein 5.9 g/dL (6.5-8.0)
[2024-05-06 05:56] LABS: Troponin-I High Sensitivity 8.4 ng/L (<3.5-17.0)
[2024-05-06 06:34] VITALS: BP 133/71; PULSE 81; RESP 16; TEMP 36.8; O2SAT 94
--- NOTE | 2024-05-06 07:00 | PC.NURSE ---
Resumed care of patient at 0700, she is currently resting in bed, monitor fixed on patient, call pink within reach, pt is awaiting provider at this time, IV flushing well.
--- NOTE | 2024-05-06 07:17 | ED.CHESTPAIN ---
HPI - Chest Pain General Chief Complaint: Chest Pain Stated Complaint: UPPER ABDOMINAL PAIN Time Seen by Provider: 05/06/24 06:39 Source: patient and EMS Mode of arrival: EMS Limitations: no limitations History of Present Illness ED Provider: RAFI TRIPLETT PA-C HPI narrative: 83 year old female with pmhx significant for vertigo, h pylori, osteoporosis, HTN, HLD, asthma/COPD, and dementia presents to the ED today via EMS from the [facility] for evaluation of acute onset chest pain which began around 0430 this morning. She reports pain ran across her entire chest. Admits to burning sensation. Pain lasted approximately 15 minutes before completely resolving. Not exertional or positional. Denies hx of similar. Denies any pain at present. No complaints. Denies dizziness, vision changes, chest pain, palpitations, sob, dyspnea, cough, N/V, abd pain. She does not require oxygen at baseline. MD complaint: chest pain Pertinent past history: asthma and other (COPD/HTN) Onset (ago): minute(s) (30) Timing of current episode: now resolved Prior episodes: No Related Data Home Medications ?Medication ?Instructions ?Recorded ?Confirmed aspirin 81 mg tablet,delayed 81 mg PO DAILY 05/22/20 01/26/24 release (Adult Low Dose Aspirin) cholecalciferol (vitamin D3) 25 25 mcg PO DAILY 05/22/20 01/26/24 mcg (1,000 unit) capsule rosuvastatin 20 mg tablet 20 mg PO BEDTIME 05/22/20 01/26/24 lorazepam 0.5 mg tablet 0.5 mg PO Q8H PRN anxiety 07/19/22 01/26/24 lisinopril 2.5 mg tablet 2.5 mg PO DAILY 12/26/23 01/26/24 metoprolol succinate 25 mg 25 mg PO DAILY 01/17/24 01/26/24 tablet,extended release 24 hr Previous Rx's ?Medication ?Instructions ?Recorded omeprazole 20 mg capsule,delayed 20 mg PO DAILY #90 caps 02/05/24 release famotidine 20 mg tablet (Pepcid) 20 mg PO BEDTIME #30 tabs 03/05/24 sucralfate 1 gram tablet 1 g PO BID #60 tabs 04/03/24 azithromycin 250 mg tablet See Rx Instructions PO .COMPLEX #6 05/06/24 tabs cefuroxime axetil 500 mg tablet 500 mg PO BID 7 days #14 tabs 05/06/24 Allergies Allergy/AdvReac Type Severity Reaction Status Date / Time amoxicillin [AMOXICILLIN] Allergy Intermediate ITCHY Verified 05/06/24 05:21 EYES/RASH codeine [CODEINE] Allergy Unknown RASH Verified 05/06/24 05:21 zocor Allergy Unknown muscle pain Uncoded 05/06/24 05:21 Review of Systems Review of Systems: Yes all other systems are reviewed and are negative [facility] Past Medical History Attestation statement: The following information was validated with the patient. Source: old records reviewed and nursing notes reviewed Medical History Lightheadedness Abdominal pain Helicobacter pylori (H. pylori) Osteoporosis On beta maria d at home Asthma COPD (chronic obstructive pulmonary disease) Hypercholesteremia HTN (hypertension) Positive FIT (fecal immunochemical test) Surgical History History of surgical removal of ganglion cyst Hx of hysterectomy Hx of bilateral cataract extraction Hx of colonoscopy Family History Family History Daughter Parkinson disease Breast cancer Brother Lung cancer Daughter Heart disease Social History Social History Household Members: Other Household Members Other:: Grandson: Balta Housing: House Do you presently have visiting nurse or other home services: No Alcohol intake: never Patient Tobacco Use Status: Never used Tobacco Tobacco use type: Cigarette Cigarette Packs Per Day: 0.5 Cigarettes Per Day: 10.0 Years Smoked: over 30 years e-Cigarette/Vaping Use: Never Used Second Hand Smoke Exposure: Yes service: No Physical Exam Vital Signs: Vital Signs: Last Vital Signs Temp 98.9 F 05/06/24 12:54 Pulse 75 05/06/24 12:54 Resp 18 05/06/24 12:54 BP 144/80 H 05/06/24 12:54 Pulse Ox 96 05/06/24 12:54 O2 Del Method Room Air 05/06/24 12:54 BMI result Body Mass Index 18.6 vital signs stable General: Well appearing, in no acute distress. Skin: Warm, dry, intact. No rashes or lesions. Head: Normocephalic, atraumatic. EENT: Hearing is intact b/l. Conjunctiva clear. PERRLA. EOM intact. Moist mucous membranes.? Cardiac: Chest wall symmetric. RRR. No JVD. Lungs: Normal respiratory effort without accessory muscle use. CTA bilaterally. No rales, rhonchi, or wheezes.? Abdomen: Soft, non-tender, non-distended. No rebound tenderness or guarding. Positive BS x4. Ext: Upper and lower extremities atraumatic, without tenderness, deformity, swelling or erythema. no pitting edema. no calf tenderness b/l. Neuro: AOx2 (person, place). Normal speech. Course Course Course Narrative: 727 -- CBC without leukocytosis or left shift. No anemia. H&H stable. Chemistry without acute electrolyte abnormality requiring intervention. CO2 31, around patient's baseline likely secondary to COPD. No [place]. Liver function at baseline. Lipase WNL. Troponin 8.4. Given timing of symptoms to ED presentation, will repeat for delta. Negative COVID, flu, RSV. On chest x-ray, there is hyperexpansion of the lungs with flattening of the diaphragm consistent with chronic lung disease. There is a 7 mm right basilar nodular density. Areas no prior chest imaging to compare to. Will obtain CT chest with con to further evaluate. > patient does not endorse any complaints at present. no pain. 1220 -- CT chest showing acute on chronic airspace disease suggesting multifocal pneumonia involving being mostly the right lower lung lobe. CAD and atherosclerotic disease. > patient has sustained 97% on room air during ambulatory O2. she did not appear to be in any respiratory distress. Not endorsing any shortness of breath or dyspnea on exertion and is actually requesting to further ambulate around the ED during her visit today. > I have treated her with a dose of IV ceftriaxone and azithromycin while in ED > I discussed possible admission with hospitalist JEWEL Collier - patient does not have a white count. She is not hypoxic at rest or on ambulation. She is asymptomatic. She does not meet criteria for admission at this time. recommending PO antibiotics. will discharge patietn back to her [facility] with ceftin and azithromycin (PCN allergy rash). her family is at bedside and will be transporting patient back to her [facility]. patient and family are agreeable with plan at this time. Patient has remained stable throughout ED visit today. Discussed worrisome signs and symptoms and when to return to the ED. All questions answered at this time. Patient/ family are agreeable with disposition and patient is stable for discharge. Medications Administered Discontinued Medications Generic Name Dose Route Start Last Admin Trade Name Reema PRN Reason Stop Dose Admin Ceftriaxone Sodium 1 gm 05/06/24 09:41 05/06/24 10:44 Ceftriaxone Sodium 1 Gm Vial IVPUSH 05/06/24 09:42 1 gm ONCE ONE Administration Azithromycin 500 mg/ Sodium 250 mls @ 125 mls/hr 05/06/24 09:41 05/06/24 12:57 Chloride IV 05/06/24 11:40 Infused ONCE ONE Infusion Iohexol 100 ml 05/06/24 08:34 05/06/24 08:35 Iohexol 350 Mg/Ml 100 Ml Infus..Btl IV 05/06/24 08:35 65 ml ONCE ONE Administration Medical Decision Making Medical Decision Making [facility] Narrative: 83 year old female with pmhx significant for vertigo, h pylori, osteoporosis, HTN, HLD, asthma/COPD, and dementia presents to the ED today via EMS from the [facility] for evaluation of acute onset chest pain which began around 0430 this morning. vital signs stable. not hypoxic or tachycardic. exam benign. rrr, no jvd. no pitting edema. no calf tenderness. lungs without adventitious breath sounds. History without high risk features (not substernal, no exertional component, not relieved with rest).? Exam without evidence of volume overload. EKG without signs of active ischemia. HEART score: 4. Given the timing of pain to ED presentation, plan to send delta troponin to evaluate for NSTEMI. Differential diagnosis also includes anemia, electrolyte abnormality, costochondritis, msk pain, pneumonia, pleurisy, GERD Presentation not consistent with acute PE, pneumothorax, thoracic aortic dissection, cardiac effusion or tamponade, myocarditis, pericarditis. Plan: labs, troponin, EKG, CXR, pain control, reassessment Differential Diagnosis Differential Diagnoses: The differential diagnosis associated with the presentation includes as above. Admission/Observation Consideration of admission/observation: Escalation of care including admission/observation considered Patient does not meet criteria for admission. Will trial p.o. antibiotics outpatient. Lab Data [facility] Lab Attestation statement: I reviewed the patient's lab results. As above 05/06/24 05:22 05/06/24 05:22 Labs: Lab Results 05/06/24 05/06/24 05/06/24 Range/Units 05:22 06:30 08:39 WBC 7.1 (4.8-10.8) X10*3/uL RBC 4.49 (4.20-5.50) X10*6/uL Hgb 13.0 (12.0-16.0) g/dl Hct 40.3 (37.0-47.0) % MCV 89.8 (80.0-98.0) fL MCH 29.0 (27.0-33.0) pg MCHC 32.3 (31.0-35.0) g/dl RDW 12.9 (11.0-16.0) % Plt Count 273 (160-400) X10*3/uL MPV 9.4 (9.4-12.3) fL Immature Gran % (Auto) 0.1 (0.0-0.4) % Neut % (Auto) 72.8 (45-73) % Lymph % (Auto) 17.8 L (20-40) % [place] % (Auto) 8.0 (2-11) % Eos % (Auto) 0.7 (0-4) % Baso % (Auto) 0.6 (0-2) % Lymph # (Auto) 1.3 (1.2-4.9) X10*3/uL [place] # (Auto) 0.6 (0.1-1.2) X10*3/uL Eos # (Auto) 0.1 (0.0-0.4) X10*3/uL Baso # (Auto) 0.0 (0.0-0.2) X10*3/uL Abs Immat Gran (auto) 0.01 (0.00-0.03) X10*3/uL Absolute Neuts (auto) 5.2 (2.0-8.3) x10*3/uL Absolute Nucleated RBC 0.000 (0.0-0.012) X10*3/uL Nucleated RBC % (auto) 0.0 (0.0-0.2) /100WBC Hold Blue Top SEE NOTE Sodium 143 (135-145) mmol/L Potassium 4.0 (3.3-5.1) mmol/L Chloride 106 (96-108) mmol/L Carbon Dioxide 31 H (22-29) mmol/L Anion Gap 10 L (12-20) BUN 12 (9-16) mg/dL Creatinine 0.65 (0.5-1.4) mg/dL Estim Creat Clear Calc 46.1 Estimated GFR > 60 Random Glucose 102 (60-115) mg/dL Calcium 8.6 (8.4-10.2) mg/dL Magnesium 2.2 (1.6-2.6) mg/dL Total Bilirubin 0.5 (0.0-1.0) mg/dL AST 23 (5-31) U/L ALT < 6 (0-31) U/L Alkaline Phosphatase 63 (39-117) U/L Troponin I High Sens 8.4 9.4 (<3.5-17.0) ng/L Total Protein 5.9 L (6.5-8.0) g/dL Albumin 3.4 L (3.5-5.0) g/dL Lipase 21 (8-78) U/L Urine Color Urine Appearance Urine pH (5.0-9.0) Ur Specific [place] (1.005-1.025) Urine Protein (Neg-Trace) mg/dL Urine Glucose (UA) (Negative) mg/dL Urine Ketones (Negative) mg/dL Urine Blood (Negative) Urine Nitrite (Negative) Ur Leukocyte Esterase (Negative) Urine RBC (0-2) /HPF Urine WBC (0-5) /HPF Ur Squamous Epith Cells (0-2) /HPF Urine Bacteria (None Seen) Hyaline Casts (0-2) /LPF Influenza Type A (PCR) NEGATIVE (Negative) Influenza Type B (PCR) NEGATIVE (Negative) RSV RNA Qual (PCR) NEGATIVE (Negative) SARS-CoV-2 RNA (RT-PCR) NEGATIVE (Negative) 05/06/24 Range/Units 09:29 WBC (4.8-10.8) X10*3/uL RBC (4.20-5.50) X10*6/uL Hgb (12.0-16.0) g/dl Hct (37.0-47.0) % MCV (80.0-98.0) fL MCH (27.0-33.0) pg MCHC (31.0-35.0) g/dl RDW (11.0-16.0) % Plt Count (160-400) X10*3/uL MPV (9.4-12.3) fL Immature Gran % (Auto) (0.0-0.4) % Neut % (Auto) (45-73) % Lymph % (Auto) (20-40) % [place] % (Auto) (2-11) % Eos % (Auto) (0-4) % Baso % (Auto) (0-2) % Lymph # (Auto) (1.2-4.9) X10*3/uL [place] # (Auto) (0.1-1.2) X10*3/uL Eos # (Auto) (0.0-0.4) X10*3/uL Baso # (Auto) (0.0-0.2) X10*3/uL Abs Immat Gran (auto) (0.00-0.03) X10*3/uL Absolute Neuts (auto) (2.0-8.3) x10*3/uL Absolute Nucleated RBC (0.0-0.012) X10*3/uL Nucleated RBC % (auto) (0.0-0.2) /100WBC Hold Blue Top Sodium (135-145) mmol/L Potassium (3.3-5.1) mmol/L Chloride (96-108) mmol/L Carbon Dioxide (22-29) mmol/L Anion Gap (12-20) BUN (9-16) mg/dL Creatinine (0.5-1.4) mg/dL Estim Creat Clear Calc Estimated GFR Random Glucose (60-115) mg/dL Calcium (8.4-10.2) mg/dL Magnesium (1.6-2.6) mg/dL Total Bilirubin (0.0-1.0) mg/dL AST (5-31) U/L ALT (0-31) U/L Alkaline Phosphatase (39-117) U/L Troponin I High Sens (<3.5-17.0) ng/L Total Protein (6.5-8.0) g/dL Albumin (3.5-5.0) g/dL Lipase (8-78) U/L Urine Color Yellow Urine Appearance Turbid Urine pH 8.0 (5.0-9.0) Ur Specific [place] 1.025 (1.005-1.025) Urine Protein Negative (Neg-Trace) mg/dL Urine Glucose (UA) Negative (Negative) mg/dL Urine Ketones Negative (Negative) mg/dL Urine Blood Negative (Negative) Urine Nitrite Negative (Negative) Ur Leukocyte Esterase Negative (Negative) Urine RBC 0-2 (0-2) /HPF Urine WBC 0-5 (0-5) /HPF Ur Squamous Epith Cells 0-2 (0-2) /HPF Urine Bacteria None Seen (None Seen) Hyaline Casts 0-2 (0-2) /LPF Influenza Type A (PCR) (Negative) Influenza Type B (PCR) (Negative) RSV RNA Qual (PCR) (Negative) SARS-CoV-2 RNA (RT-PCR) (Negative) Independent Interpretation I performed an independent interpretation of an: EKG, Plain X-Ray and CT Scan Interpretation: EKG showing sinus rhythm, rate of 67 beats per minute, premature supraventricular complexes and occasional PVCs. LBBB evident on priors. cxr without focal infiltrate or consolidation Radiology Impression Discussion of test interpretation with radiology: I have reviewed the radiologist's reading. Radiologist Impression: Procedure(s): ECG 12 lead EKG Accession Number(s): [id number] cc: ~ Test Reason : CP Blood Pressure : */* mmHG Vent. Rate : 67 BPM Atrial Rate : 67 BPM P-R Int : 152 ms QRS Dur : 150 ms QT Int : 440 ms P-R-T Axes : 93 -62 147 degrees QTcB Int : 464 ms Sinus rhythm with Premature supraventricular complexes and with occasional Premature ventricular complexes Left axis deviation Left bundle branch block Abnormal ECG When compared with ECG of 27-Jan-2024 11:28, Premature ventricular complexes are now Present Procedure(s): XR chest 1V Accession Number(s): [id number] cc: Nino Jackson MD; Alda Schultz DO~ CLINICAL HISTORY: cp 1 view chest x-ray Comparison: None Findings: There is hyperexpansion of the lungs with flattening of the diaphragm. 7 mm right basilar nodular density is present. Heart size is normal. No acute fracture. IMPRESSION: 1. Imaging findings of COPD with 7 mm right basilar nodular density. Recommend CT chest for further evaluation. Independent Historian Clinical information obtained from an independent historian. History obtained from or confirmed by: EMS External Record Review External record reviewed: Inpatient record Prescription Management I considered prescription management with: Antibiotic (ceftin, azithromycin) Chronic Conditions Patient?s care impacted by: Hypertension and Other (COPD) Social Determinants Patient?s care significantly limited by Social Determinants of Health including: Other Social Determinant of Health Critical Care Time Critical Care Time Critical Care Time: No Discharge Plan Discharge Clinical Impression: CAP (community acquired pneumonia) Patient Disposition: er [facility] Transfer Details: [facility] Instructions: Community Acquired Pneumonia (ED) Additional Instructions: You were evaluated in the ED today for chest pain. Your pain resolved shortly after arrival in ED. Your blood work is reassuring. You tested negative for covid, flu, rsv. Your urine does not show infection. The CT scan of your chest is concerning for multifocal pneumonia. Your oxygen levels are normal and work up is otherwise reassuring. You do not meet criteria for admission at this time. Treatment for this is with antibiotics. You were given your first dose in the ED today. You have been provided with a written script for Ceftin and Azithromycin for treatment. Take these as prescribed. Follow up with outpatient providers. Return to the ED with new or worsening symptoms. In the case of an emergency call 911. Prescriptions: New cefuroxime axetil 500 mg tablet 500 mg PO BID 7 Days Qty: 14 0RF azithromycin 250 mg tablet See Rx Instructions PO .COMPLEX Qty: 6 0RF Rx Instructions: For 250 mg dose pack: take 500 mg today (day 1), then 250 mg for 4 days (days 2-5) No Action famotidine [Pepcid] 20 mg tablet 20 mg PO BEDTIME Qty: 30 0RF rosuvastatin 20 mg tablet 20 mg PO BEDTIME cholecalciferol (vitamin D3) 25 mcg (1,000 unit) capsule 25 mcg PO DAILY aspirin [Adult Low Dose Aspirin] 81 mg tablet,delayed release (DR/EC) 81 mg PO DAILY omeprazole 20 mg capsule,delayed release(DR/EC) 20 mg PO DAILY Qty: 90 1RF lorazepam 0.5 mg tablet 0.5 mg PO Q8H PRN (Reason: anxiety) lisinopril 2.5 mg tablet 2.5 mg PO DAILY metoprolol succinate 25 mg tablet extended release 24 hr 25 mg PO DAILY sucralfate 1 gram tablet 1 g PO BID Qty: 60 1RF Referrals: Nino Jackson MD [Primary Care Provider] - Interventions: ED Discharge Assessment Last Done: 05/06/24 12:54 Discharge Date/Time: 05/06/24 12:55 Print Language: Taiwanese
[2024-05-06 07:21] LABS: Influenza A PCR NEGATIVE (Negative); Influenza B PCR NEGATIVE (Negative); Resp Syncy Virus RNA Qual PCR NEGATIVE (Negative); SARS COV2 PCR INHOUSE NEGATIVE (Negative)
[2024-05-06] MEDS: iohexoL 350 MG/ML 100 ML INFUS..BTL IV (08:35)
[2024-05-06 09:11] LABS: Troponin-I High Sensitivity 9.4 ng/L (<3.5-17.0)
[2024-05-06 09:40] LABS: Appearance Urine Turbid; Color Urine Yellow; Glucose Urine UA Negative (Negative); Leukocyte Esterase Urine Negative (Negative); Nitrite Urine Negative (Negative); Specific Gravity - Urine 1.025 (1.005-1.025); Urine Blood Negative (Negative); Urine Ketones Negative (Negative); Urine Protein Negative (Neg-Trace)
[2024-05-06 09:49] LABS: Bacteria Urine None Seen (None Seen); Hyaline Casts Urine 0-2 /LPF (0-2); RBC Urine 0-2 /HPF (0-2); Squamous Epithelial Cell Urine 0-2 /HPF (0-2); WBC Urine 0-5 /HPF (0-5)
[2024-05-06 10:06] VITALS: RESP 20; O2SAT 96
[2024-05-06] MEDS: cefTRIAXone sodium 1 GM VIAL IVPUSH (10:44)
[2024-05-06] MEDS: Azithromycin 500 MG in 0.9 % Sodium Chloride 250 ML 125 MG IV (10:44)
[2024-05-06 10:47] VITALS: BP 144/80; PULSE 75; RESP 18; TEMP 37.2; O2SAT 96
[2024-05-06 12:54] VITALS: BP 144/80; PULSE 75; RESP 18; TEMP 37.2; O2SAT 96
== END 2024-05-06 12:55 | disposition skilled nursing facility (03) ==
PROVIDERS: Physician Assistant Medical; Emergency Provider Emergency Medicine; PCP Internal Medicine
DX: J18.9 Pneumonia, unspecified organism (principal); R07.89 Other chest pain; I10 Essential (primary) hypertension; J44.9 Chronic obstructive pulmonary disease, unspecified; Z03.818 Encounter for observation for suspected exposure to other biological agents ruled out; Z79.899 Other long term (current) drug therapy
CPT/HCPCS: 0241U; 36415; 71045; 71260; 80053; 81001; 83690; 83735; 84484; 85025; 87040; 93005; 96365; 96366; 96375; 99285; J0456; J0696; Q9967

== ENCOUNTER → 2024-05-06 05:21 | Outpatient (BNV) | payer MEDICARE, SELFPAY | PROVIDERS: Emergency Provider Emergency Medicine; PCP Internal Medicine; Visit Provider Internal Medicine | DX: R07.9 Chest pain, unspecified (principal); I44.7 Left bundle-branch block, unspecified; R94.31 Abnormal electrocardiogram [ECG] [EKG] | CPT/HCPCS: 93010 ==

== ENCOUNTER → 2024-05-06 06:15 | Outpatient (BNV) | payer MEDICARE, SELFPAY | PROVIDERS: Emergency Provider Emergency Medicine; PCP Internal Medicine; Visit Provider Radiology Vascular & Interventional Radiology | DX: R07.9 Chest pain, unspecified (principal); J18.9 Pneumonia, unspecified organism | CPT/HCPCS: 71260 ==

== ENCOUNTER 2024-05-28 18:32 | Emergency (ER) | payer MEDICARE, SELFPAY ==
--- NOTE | 2024-05-28 | ECG_ITS ---
Test Reason : EPIGASTRIC PAIN Blood Pressure : */* mmHG Vent. Rate : 68 BPM Atrial Rate : 68 BPM P-R Int : 152 ms QRS Dur : 156 ms QT Int : 436 ms P-R-T Axes : 73 -51 133 degrees QTcB Int : 463 ms Normal sinus rhythm Left axis deviation Left bundle branch block Abnormal ECG When compared with ECG of 06-May-2024 05:21, Premature ventricular complexes are no longer Present Referred By: Generic ED Physician Electronically Signed By: LINDA URIBE
--- NOTE | ~2024-05-28 | CT_ITS ---
CLINICAL HISTORY: epigastric pain CT abdomen and pelvis with contrast Comparison: CT of the abdomen and pelvis from 01/26/2024 Findings: Mild bibasilar atelectasis/pneumonitis superimposed on emphysematous changes. Cardiomegaly is partially imaged. Moderate hiatal hernia is partially imaged. Wall thickening of the distal stomach is nonspecific and may be due to underdistention or gastritis. No small bowel obstruction. Mild gaseous distention of the small bowel loops in the left upper quadrant of the mild distention of the fluid-filled loops in the right lower quadrant. Severe stool burden present, including the cecum. Multiple diverticula noted. Mild/minimal free fluid in the abdomen pelvis is nonspecific include obscure mild inflammation. No significant change in ductal dilatation of the imaged CBD and main pancreatic duct. Fat deposition again noted in the liver including adjacent to the falciform ligament. Gallbladder is unremarkable for CT. Calcified remnants of old granulomatous process redemonstrated in the nonenlarged spleen. Mild adrenal hyperplasia. No hydronephrosis. No significant change in prominence of the each renal pelvis. Uterus is diminutive or surgically absent. No adnexal soft tissue mass by CT. Small mesenteric and periaortic lymph nodes are nonspecific and may be reactive. Calcified and noncalcified plaque involving the imaged aorta and its branches. Transitional vertebral anatomy of the lumbosacral junction redemonstrated. 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 Facet arthropathy is multifocal. IMPRESSION: 1. Severe stool burden. No small bowel obstruction. 2. Partially imaged moderate hiatal hernia. 3. Mild free fluid in the abdomen and pelvis is nonspecific. 4. Mild bibasilar atelectasis and/or pneumonitis superimposed on emphysematous changes. This document has been electronically signed by: Jewel Potts MD on 05/29/2024 00:05:00
--- NOTE | ~2024-05-28 | XR_ITS ---
CLINICAL HISTORY: cp 1 view chest x-ray Comparison: Chest x-ray from 05/06/2024 Findings: Small bilateral pleural effusions with bibasilar atelectasis/pneumonitis, right worse than left. Emphysematous changes are redemonstrated. No pneumothorax. Imaged mediastinum and osseous structures are unchanged with mild old left lateral rib deformities. IMPRESSION: 1. Small bilateral pleural effusions. 2. Mild bibasilar atelectasis/pneumonitis. Right worse than left. This document has been electronically signed by: Jewel Potts MD on 05/28/2024 20:22:24
[2024-05-28 18:52] VITALS: BP 120/70; PULSE 76; O2SAT 96
[2024-05-28 18:56] VITALS: BP 97/76; PULSE 79; RESP 18; TEMP 36.6; O2SAT 97; BMI 18.4
[2024-05-28 19:10] LABS: MANUAL DIFF FLAG NO
--- NOTE | 2024-05-28 19:13 | PC.NURSE ---
pt biba from the [facility], a&ox2, respirations even and unlabored. pt reports onset of upper epigastric pain x3 hours, pt reports the pain worsened with eating and did not get better. pt denies cp and sob. 18G placed in left forearms, labs obtained and sent. nsr on tele 70-75bpm
[2024-05-28 19:19] LABS: Basophils Percent Auto 0.5 % (0-2); Eosinophils Percent Auto 0.5 % (0-4); Hematocrit 33.7 % (37.0-47.0); Hemoglobin 11.1 g/dl (12.0-16.0); Imm Gran Abs Auto 0.01 X10*3/uL (0.00-0.03); Imm Gran Pct Auto 0.2 % (0.0-0.4); Lymphocytes Absolute Auto 1.4 X10*3/uL (1.2-4.9); Lymphocytes Percent Auto 20.8 % (20-40); Mean Corpuscular HGB Conc 32.9 g/dl (31.0-35.0); Mean Platelet Volume 9.3 fL (9.4-12.3); Monocytes Absolute Auto 0.6 X10*3/uL (0.1-1.2); Monocytes Percent Auto 9.4 % (2-11); Neutrophils Absolute Auto 4.6 x10*3/uL (2.0-8.3); Neutrophils Percent Auto 68.6 % (45-73); Platelet Count 233 X10*3/uL (160-400); Red Blood Count 3.83 X10*6/uL (4.20-5.50); Red Cell Distribution Width 13.2 % (11.0-16.0); White Blood Count 6.6 X10*3/uL (4.8-10.8)
[2024-05-28 19:30] LABS: Alanine Aminotransferase 10 U/L (0-31); Albumin Level 3.2 g/dL (3.5-5.0); Anion Gap 10 (12-20); Aspartate Amino Transferase 20 U/L (5-31); Bilirubin Total 0.3 mg/dL (0.0-1.0); Blood Urea Nitrogen 13 mg/dL (9-16); Calcium 8.2 mg/dL (8.4-10.2); Carbon Dioxide 27 mmol/L (22-29); Chloride 107 mmol/L (96-108); Creatinine Clr Calc Pharmacy 45.5; Estimated Glomerular Filt Rate > 60; Glucose Random 89 mg/dL (60-115); Lipase 20 U/L (8-78); Potassium 3.9 mmol/L (3.3-5.1); Sodium 140 mmol/L (135-145); Total Protein 5.5 g/dL (6.5-8.0)
[2024-05-28 19:37] LABS: Alkaline Phosphatase 60 U/L (39-117)
[2024-05-28 22:28] VITALS: BP 135/71; PULSE 75; RESP 18; TEMP 36.9; O2SAT 96
[2024-05-28] MEDS: Pantoprazole Sodium 40 MG/10 ML VIAL IVPUSH (23:25)
--- NOTE | 2024-05-28 23:32 | PC.NURSE ---
pt returned from ct at this time, labs obtained and sent to labs, pt medicated per apr.
[2024-05-28 23:43] LABS: INTERNATIONAL NORM RATIO 1.1 (0.9-1.1); Prothrombin Time 13.1 SEC (10.9-12.4)
[2024-05-28 23:45] LABS: OBS Int Ctl Valid YES; OBS1 NEGATIVE (NEGATIVE)
--- NOTE | 2024-05-28 23:55 | ED.GENADULT ---
HPI - General Adult General Chief complaint: Abdominal Pain Stated complaint: abd pain Time Seen by Provider: 05/28/24 22:56 Source: patient, RN notes reviewed and old records reviewed Mode of arrival: EMS Limitations: no limitations History of Present Illness ED Provider: Melissa HPI narrative: 83-year-old female with past medical history significant for dementia, history of H pylori, GERD presents for evaluation of upper abdominal pain after eating. Patient reports she frequently has abdominal pain after eating. Today her pain was severe and started about 3 hours prior to arrival. She was unsure if she was a had any surgery on her abdomen. Denies any nausea vomiting. Denies any black or bloody stool Denies any fevers, chills, cough, shortness of breath. At the time my evaluation, the patient reports that her pain has resolved Related Data Home Medications ?Medication ?Instructions ?Recorded ?Confirmed aspirin 81 mg tablet,delayed 81 mg PO DAILY 05/22/20 01/26/24 release (Adult Low Dose Aspirin) cholecalciferol (vitamin D3) 25 25 mcg PO DAILY 05/22/20 01/26/24 mcg (1,000 unit) capsule rosuvastatin 20 mg tablet 20 mg PO BEDTIME 05/22/20 01/26/24 lorazepam 0.5 mg tablet 0.5 mg PO Q8H PRN anxiety 07/19/22 01/26/24 lisinopril 2.5 mg tablet 2.5 mg PO DAILY 12/26/23 01/26/24 metoprolol succinate 25 mg 25 mg PO DAILY 01/17/24 01/26/24 tablet,extended release 24 hr Previous Rx's ?Medication ?Instructions ?Recorded omeprazole 20 mg capsule,delayed 20 mg PO DAILY #90 caps 02/05/24 release famotidine 20 mg tablet (Pepcid) 20 mg PO BEDTIME #30 tabs 03/05/24 sucralfate 1 gram tablet 1 g PO BID #60 tabs 04/03/24 azithromycin 250 mg tablet See Rx Instructions PO .COMPLEX #6 05/06/24 tabs cefuroxime axetil 500 mg tablet 500 mg PO BID 7 days #14 tabs 05/06/24 docusate sodium 100 mg tablet 100 mg PO BID PRN constipation #30 05/29/24 tabs polyethylene glycol 3350 17 gram 17 g PO DAILY #30 ea 05/29/24 oral powder packet (Miralax) Allergies Allergy/AdvReac Type Severity Reaction Status Date / Time amoxicillin [AMOXICILLIN] Allergy Intermediate ITCHY Verified 05/28/24 18:57 EYES/RASH codeine [CODEINE] Allergy Unknown RASH Verified 05/28/24 18:57 zocor Allergy Unknown muscle pain Uncoded 05/28/24 18:57 Review of Systems Constitutional: Constitutional: Denies body ache(s), Denies chills and Denies headache(s) Eyes: Eyes: Denies blurry vision ENT: Denies vertigo and Denies headache(s) Cardiovascular: Cardiovascular: Denies chest pain and Denies dyspnea Respiratory: Respiratory: Denies cough and Denies dyspnea Gastrointestinal: Gastrointestinal: Reports abdominal pain, Denies melena, Denies hematochezia, Denies nausea and Denies vomiting Musculoskeletal: Musculoskeletal: Denies back pain Neurologic: Denies vertigo and Denies headache(s) [facility] Past Medical History Medical History Lightheadedness Abdominal pain Helicobacter pylori (H. pylori) Osteoporosis On beta maria d at home Asthma COPD (chronic obstructive pulmonary disease) Hypercholesteremia HTN (hypertension) Positive FIT (fecal immunochemical test) Surgical History History of surgical removal of ganglion cyst Hx of hysterectomy Hx of bilateral cataract extraction Hx of colonoscopy Family History Family History Daughter Parkinson disease Breast cancer Brother Lung cancer Daughter Heart disease Social History Social History Household Members: Other Household Members Other:: Grandson: Balta Housing: House Do you presently have visiting nurse or other home services: No Alcohol intake: never Patient Tobacco Use Status: Never used Tobacco Tobacco use type: Cigarette Cigarette Packs Per Day: 0.5 Cigarettes Per Day: 10.0 Years Smoked: over 30 years Smoked in Last 30 Days: No e-Cigarette/Vaping Use: Never Used Second Hand Smoke Exposure: Yes Use of substances other than those prescribed or required for medical reasons: No Advance Directives: No Advance Directives Information Provided: No Do you have a plan to hurt others: No Plan service: No Physical Exam ED Vital Signs: Vital Signs - 24 hr 05/28/24 18:56 05/28/24 22:28 05/29/24 00:04 Temperature 97.8 F 98.4 F 98.4 F Pulse Rate 79 75 80 Respiratory Rate 18 18 16 Blood Pressure 97/76 135/71 135/86 Pulse Oximetry 97 96 97 Oxygen Delivery Method Room Air Room Air Room Air BMI result Body Mass Index 18.4 Const General: healthy appearing, comfortable, no acute distress, alert and awake Nutritional Appearance: well nourished Orientation/consciousness: patient oriented x3 HENMT Head: Yes normocephalic and Yes atraumatic Eyes Eyelids: Yes eyelids normal Conjunctivae: conjunctivae normal Sclerae: sclerae normal Corneas: corneas normal Pupils: Equal, round and reactive pupils present EOM: EOMs intact bilaterally Neck Neck: Yes full ROM Resp Effort & Inspection: normal respiratory effort, able to speak in complete sentences and not labored GI Other: Abdomen is soft, nondistended, but diffusely tender Inspection: No distended Palpation (GI): Soft to palpation, not firm, Tenderness to palpation present (GI) (Diffuse abdominal tenderness), no guarding and not rigid Auscultation: normoactive bowel sounds Skin General skin exam: no rashes or lesions noted and elasticity normal Neuro General: patient oriented x3 Cranial nerves: Yes Equal, round and reactive pupils present and Yes Bilaterally intact EOM present Extrem Other: Moving all extremities well without any obvious deformities Course Reevaluation(s) Reevaluation #1: Patient's CT scan shows significant constipation but no evidence of obstruction. She has no rectal pain or lower abdominal pain. Despite her anemia, she was guaiac negative, she was not anticoagulated, she was not hypotensive or tachycardic. This can be followed up as an outpatient. We will start her on a bowel regimen for her constipation Time: 00:20 Medications Administered Discontinued Medications Generic Name Dose Route Start Last Admin Trade Name Freq PRN Reason Stop Dose Admin Pantoprazole Sodium 40 mg 05/28/24 23:07 05/28/24 23:25 Pantoprazole Sodium 40 Mg/10 Ml Vial IVPUSH 05/28/24 23:08 40 mg ONCE ONE Administration Medical Decision Making Medical Decision Making [facility] Narrative: 83-year-old female with past medical history as above presents for evaluation of abdominal pain. She reports that her pain has resolved but is still cleaner diffusely on exam. Her vital signs are within normal limits. Review of her labs, her brusher and shearer significant for a mild normocytic anemia. However she had labs 3 weeks ago on May 06 2024 with a hemoglobin of 13.0 and hematocrit of 40.3. Her labs today with a hemoglobin 11.1 hematocrit 33.7 indicate a drop, unclear etiology. Therefore a rectal exam was performed which is guaiac negative. I had concern for bleeding ulcer as the patient also has a history of GERD and H pylori. She was not anticoagulated reports that she was not take aspirin Differential Diagnosis Differential Diagnoses: The differential diagnosis associated with the presentation includes Abdominal pain Gastritis GERD Peptic ulcer disease Pancreatitis Cholecystitis Admission/Observation Consideration of admission/observation: Escalation of care including admission/observation considered Lab Data MDM Lab Attestation statement: I reviewed the patient's lab results. Mild normocytic anemia as above. No significant chemistry abnormalities. LFTs within normal limits 05/28/24 19:05 05/28/24 19:05 Labs: Lab Results 05/28/24 05/28/24 Range/Units 19:05 23:28 WBC 6.6 (4.8-10.8) X10*3/uL RBC 3.83 L (4.20-5.50) X10*6/uL Hgb 11.1 L (12.0-16.0) g/dl Hct 33.7 L (37.0-47.0) % MCV 88.0 (80.0-98.0) fL MCH 29.0 (27.0-33.0) pg MCHC 32.9 (31.0-35.0) g/dl RDW 13.2 (11.0-16.0) % Plt Count 233 (160-400) X10*3/uL MPV 9.3 L (9.4-12.3) fL Immature Gran % (Auto) 0.2 (0.0-0.4) % Neut % (Auto) 68.6 (45-73) % Lymph % (Auto) 20.8 (20-40) % Dare % (Auto) 9.4 (2-11) % Eos % (Auto) 0.5 (0-4) % Baso % (Auto) 0.5 (0-2) % Lymph # (Auto) 1.4 (1.2-4.9) X10*3/uL Dare # (Auto) 0.6 (0.1-1.2) X10*3/uL Eos # (Auto) 0.0 (0.0-0.4) X10*3/uL Baso # (Auto) 0.0 (0.0-0.2) X10*3/uL Abs Immat Gran (auto) 0.01 (0.00-0.03) X10*3/uL Absolute Neuts (auto) 4.6 (2.0-8.3) x10*3/uL Absolute Nucleated RBC 0.000 (0.0-0.012) X10*3/uL Nucleated RBC % (auto) 0.0 (0.0-0.2) /100WBC PT 13.1 H (10.9-12.4) SEC INR 1.1 (0.9-1.1) Sodium 140 (135-145) mmol/L Potassium 3.9 (3.3-5.1) mmol/L Chloride 107 (96-108) mmol/L Carbon Dioxide 27 (22-29) mmol/L Anion Gap 10 L (12-20) BUN 13 (9-16) mg/dL Creatinine 0.61 (0.5-1.4) mg/dL Estim Creat Clear Calc 45.5 Estimated GFR > 60 Random Glucose 89 (60-115) mg/dL Calcium 8.2 L (8.4-10.2) mg/dL Total Bilirubin 0.3 (0.0-1.0) mg/dL AST 20 (5-31) U/L ALT 10 (0-31) U/L Alkaline Phosphatase 60 (39-117) U/L Troponin I High Sens 8.0 (<3.5-17.0) ng/L Total Protein 5.5 L (6.5-8.0) g/dL Albumin 3.2 L (3.5-5.0) g/dL Lipase 20 (8-78) U/L Stool Occult Blood NEGATIVE (NEGATIVE) Independent Interpretation I performed an independent interpretation of an: CT Scan Interpretation: Agree with Radiology interpretation Radiology Impression Discussion of test interpretation with radiology: I have reviewed the radiologist's reading. Radiologist Impression: Findings: Mild bibasilar atelectasis/pneumonitis superimposed on emphysematous changes. Cardiomegaly is partially imaged. Moderate hiatal hernia is partially imaged. Wall thickening of the distal stomach is nonspecific and may be due to underdistention or gastritis. No small bowel obstruction. Mild gaseous distention of the small bowel loops in the left upper quadrant of the mild distention of the fluid-filled loops in the right lower quadrant. Severe stool burden present, including the cecum. Multiple diverticula noted. Mild/minimal free fluid in the abdomen pelvis is nonspecific include obscure mild inflammation. No significant change in ductal dilatation of the imaged CBD and main pancreatic duct. Fat deposition again noted in the liver including adjacent to the falciform ligament. Gallbladder is unremarkable for CT. Calcified remnants of old granulomatous process redemonstrated in the nonenlarged spleen. Mild adrenal hyperplasia. No hydronephrosis. No significant change in prominence of the each renal pelvis. Uterus is diminutive or surgically absent. No adnexal soft tissue mass by CT. Small mesenteric and periaortic lymph nodes are nonspecific and may be reactive. Calcified and noncalcified plaque involving the imaged aorta and its branches. Transitional vertebral anatomy of the lumbosacral junction redemonstrated. 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 Facet arthropathy is multifocal. IMPRESSION: 1. Severe stool burden. No small bowel obstruction. 2. Partially imaged moderate hiatal hernia. 3. Mild free fluid in the abdomen and pelvis is nonspecific. 4. Mild bibasilar atelectasis and/or pneumonitis superimposed on emphysematous changes. This document has been electronically signed by: Jewel Potts MD on 05/29/2024 00:05:00 Discharge Plan Discharge Clinical Impression: Abdominal pain, Normocytic anemia Patient Disposition: Home, Self-Care Instructions: Constipation (ED), High Fiber Diet (ED) Additional Instructions: Your workup in the ER today showed a mild anemia. Your stool was negative for GI bleed. I do recommend that you follow-up with GI for an outpatient colonoscopy given the mild anemia. Your CT scan did show significant constipation. I recommend taking MiraLax every night You should take docusate sodium as well when constipated You should have a high-fiber diet Prescriptions: New polyethylene glycol 3350 [Miralax] 17 gram powder in packet 17 g PO DAILY Qty: 30 0RF docusate sodium 100 mg tablet 100 mg PO BID PRN (Reason: constipation) Qty: 30 0RF No Action famotidine [Pepcid] 20 mg tablet 20 mg PO BEDTIME Qty: 30 0RF cefuroxime axetil 500 mg tablet 500 mg PO BID 7 Days Qty: 14 0RF azithromycin 250 mg tablet See Rx Instructions PO .COMPLEX Qty: 6 0RF Rx Instructions: For 250 mg dose pack: take 500 mg today (day 1), then 250 mg for 4 days (days 2-5) rosuvastatin 20 mg tablet 20 mg PO BEDTIME cholecalciferol (vitamin D3) 25 mcg (1,000 unit) capsule 25 mcg PO DAILY aspirin [Adult Low Dose Aspirin] 81 mg tablet,delayed release (DR/EC) 81 mg PO DAILY omeprazole 20 mg capsule,delayed release(DR/EC) 20 mg PO DAILY Qty: 90 1RF lorazepam 0.5 mg tablet 0.5 mg PO Q8H PRN (Reason: anxiety) lisinopril 2.5 mg tablet 2.5 mg PO DAILY metoprolol succinate 25 mg tablet extended release 24 hr 25 mg PO DAILY sucralfate 1 gram tablet 1 g PO BID Qty: 60 1RF Referrals: Mynor Us MD [Physician] - (new anemia, history of GERD, severe constipation) Print Language: Malawian
[2024-05-29 00:04] VITALS: BP 135/86; PULSE 80; RESP 16; TEMP 36.9; O2SAT 97
--- NOTE | 2024-05-29 00:14 | MHC.EDTECH ---
This pct assumed care of Patient at 2300 ,vitals taken ,Patient was assisted to walk to bathroom ,void urine sample collected and sent to lab .
[2024-05-29 00:20] LABS: Appearance Urine Clear; Color Urine Yellow; Glucose Urine UA Negative (Negative); Leukocyte Esterase Urine Trace (Negative); Nitrite Urine Negative (Negative); PH 6.5 (5.0-9.0); Specific Gravity - Urine >= 1.030 (1.005-1.025); UMIC TRIGGER UACC YES; Urine Blood Negative (Negative); Urine Ketones Negative (Negative); Urine Protein Trace mg/dL (Neg-Trace)
[2024-05-29 00:28] LABS: Bacteria Urine None Seen (None Seen); Calcium Oxalate Crystals Urine Present; RBC Urine 0-2 /HPF (0-2); Squamous Epithelial Cell Urine 0-2 /HPF (0-2); WBC Urine 0-5 /HPF (0-5)
--- NOTE | 2024-05-29 00:35 | PC.NURSE ---
report called and given to sarah victoria at the [facility].
[2024-05-29 01:53] VITALS: BP 132/78; PULSE 85; RESP 16; TEMP 36.9; O2SAT 98
--- NOTE | 2024-05-29 01:53 | PC.NURSE ---
ems at bedside for report
== END 2024-05-29 02:00 | disposition home or self-care (01) ==
PROVIDERS: Physician Assistant; Emergency Provider Emergency Medicine
DX: R10.2 Pelvic and perineal pain (principal); D64.9 Anemia, unspecified; R10.13 Epigastric pain; I44.7 Left bundle-branch block, unspecified; Z79.899 Other long term (current) drug therapy
CPT/HCPCS: 36415; 71045; 74177; 80053; 81001; 82272; 83690; 84484; 85025; 85610; 93005; 96374; 99284; 99285; J2470

== ENCOUNTER → 2024-05-28 19:00 | Outpatient (BNV) | payer MEDICARE, SELFPAY | PROVIDERS: Emergency Provider Emergency Medicine; Visit Provider Internal Medicine | DX: I44.7 Left bundle-branch block, unspecified (principal) | CPT/HCPCS: 93010 ==

== ENCOUNTER → 2024-05-28 19:50 | Outpatient (BNV) | payer MEDICARE, SELFPAY | PROVIDERS: Visit Provider Radiology Neuroradiology | DX: J90 Pleural effusion, not elsewhere classified (principal) | CPT/HCPCS: 71045; 74177 ==

== ENCOUNTER 2024-06-20 09:18 | Emergency (ER) | payer MEDICARE, SELFPAY ==
--- NOTE | ~2024-06-20 | XR_ITS ---
EXAMINATION: XR CHEST CLINICAL INFORMATION: epigastric pain COMPARISON: None available. TECHNIQUE: Frontal view of the chest was obtained. FINDINGS: There is cardiac enlargement. The aorta is calcified and mildly tortuous. Hilar silhouettes appear normal. Lungs are diffusely hyperaerated bilaterally. There is biapical pleural scarring. There is consolidative opacity in the right lower lung region. No pneumothorax or effusion. No focal osseous or soft tissue abnormality. XR/XR chest 1V IMPRESSION: Right lower lobe pneumonia. No definite effusion. COPD. Cardiac enlargement. Electronically signed by: Nasir Robert MD 06/20/2024 10:11 AM EDT
[2024-06-20 09:23] VITALS: BP 119/60; O2SAT 99
--- NOTE | 2024-06-20 09:23 | ECG_ITS ---
Test Reason : CHEST PAIN Blood Pressure : */* mmHG Vent. Rate : 67 BPM Atrial Rate : 67 BPM P-R Int : 168 ms QRS Dur : 156 ms QT Int : 438 ms P-R-T Axes : 80 -62 132 degrees QTcB Int : 462 ms Normal sinus rhythm Left axis deviation Left bundle branch block Abnormal ECG When compared with ECG of 28-May-2024 19:00, No significant change was found Referred By: Generic ED Physician Electronically Signed By: ROBER LEMONS MD
[2024-06-20 09:32] VITALS: BP 122/65; PULSE 60; RESP 18; TEMP 36.4
[2024-06-20 09:41] VITALS: BMI 19.5
--- NOTE | 2024-06-20 10:11 | ED_ITS ---
HPI - General Adult General Chief complaint: General Medical Stated complaint: CHEST PAIN Time Seen by Provider: 06/20/24 10:02 Source: patient, EMS, RN notes reviewed and old records reviewed Mode of arrival: EMS History of Present Illness ED Provider: Josette Sandhu PA-C HPI narrative: 83-year-old female with a past medical history of asthma, COPD, HLD, HTN, dementia, presenting to the ED via EMS from [facility] complaining of epigastric abdominal pain radiating to chest and throat s/p eating breakfast [employer]. Admits to chest discomfort at present. Reports pain worse with eating. Denies SOB, nausea/vomiting, diarrhea chest constipation, dysuria/hematuria. Poor historian. A&O x2 with baseline dementia Related Data Home Medications ?Medication ?Instructions ?Recorded ?Confirmed aspirin 81 mg tablet,delayed 81 mg PO DAILY 05/22/20 01/26/24 release (Adult Low Dose Aspirin) cholecalciferol (vitamin D3) 25 25 mcg PO DAILY 05/22/20 01/26/24 mcg (1,000 unit) capsule rosuvastatin 20 mg tablet 20 mg PO BEDTIME 05/22/20 01/26/24 lorazepam 0.5 mg tablet 0.5 mg PO Q8H PRN anxiety 07/19/22 01/26/24 lisinopril 2.5 mg tablet 2.5 mg PO DAILY 12/26/23 01/26/24 metoprolol succinate 25 mg 25 mg PO DAILY 01/17/24 01/26/24 tablet,extended release 24 hr Previous Rx's ?Medication ?Instructions ?Recorded omeprazole 20 mg capsule,delayed 20 mg PO DAILY #90 caps 02/05/24 release famotidine 20 mg tablet (Pepcid) 20 mg PO BEDTIME #30 tabs 03/05/24 sucralfate 1 gram tablet 1 g PO BID #60 tabs 04/03/24 azithromycin 250 mg tablet See Rx Instructions PO .COMPLEX #6 05/06/24 tabs cefuroxime axetil 500 mg tablet 500 mg PO BID 7 days #14 tabs 05/06/24 docusate sodium 100 mg tablet 100 mg PO BID PRN constipation #30 05/29/24 tabs polyethylene glycol 3350 17 gram 17 g PO DAILY #30 ea 05/29/24 oral powder packet (Miralax) azithromycin 250 mg tablet 250 mg PO DAILY 4 days #4 tabs 06/20/24 cefpodoxime 200 mg tablet 200 mg PO BID 7 days #14 tabs 06/20/24 Allergies Allergy/AdvReac Type Severity Reaction Status Date / Time amoxicillin [AMOXICILLIN] Allergy Intermediate ITCHY Verified 06/20/24 09:47 EYES/RASH codeine [CODEINE] Allergy Unknown RASH Verified 06/20/24 09:47 zocor Allergy Unknown muscle pain Uncoded 06/20/24 09:47 Review of Systems 2 Review of Systems: Yes all other systems are reviewed and are negative Constitutional: Constitutional: Reports as per [facility] Past Medical History Attestation statement: The following information was validated with the patient. Source: old records reviewed Medical History Lightheadedness Abdominal pain Helicobacter pylori (H. pylori) Osteoporosis On beta maria d at home Asthma COPD (chronic obstructive pulmonary disease) Hypercholesteremia HTN (hypertension) Positive FIT (fecal immunochemical test) Surgical History History of surgical removal of ganglion cyst Hx of hysterectomy Hx of bilateral cataract extraction Hx of colonoscopy Family History Family History Daughter Parkinson disease Breast cancer Brother Lung cancer Daughter Heart disease Social History Social History Household Members: Other Household Members Other:: Grandson: Balta Housing: House Do you presently have visiting nurse or other home services: No Alcohol intake: never Patient Tobacco Use Status: Never used Tobacco Tobacco use type: Cigarette Cigarette Packs Per Day: 0.5 Cigarettes Per Day: 10.0 Years Smoked: over 30 years e-Cigarette/Vaping Use: Never Used Second Hand Smoke Exposure: Yes Advance Directives: No Advance Directives Information Provided: Yes service: No Physical Exam ED Vital Signs: Vital Signs - 24 hr 06/20/24 09:32 06/20/24 11:26 06/20/24 14:28 Temperature 97.6 F 97.3 F 97.7 F Pulse Rate 60 66 61 Respiratory Rate 18 14 16 Blood Pressure 122/65 141/57 H 110/77 Pulse Oximetry 100 96 Oxygen Delivery Method Room Air Room Air Room Air Oxygen Flow Rate 95 BMI result Body Mass Index 19.5 Const General: cooperative, healthy appearing and no acute distress Orientation/consciousness: patient oriented x3 Limitations: no limitations HENMT Head: Yes normal to inspection and Yes atraumatic Ears: hearing grossly normal bilaterally General nose exam: Normal external nose present Face and sinus: Yes normal facial exam Mouth: no drooling Throat: Yes posterior oropharynx normal, Yes tonsils normal, Yes uvula midline, No peritonsillar mass, No uvula laterally displaced and No uvular edema Eyes General: appearance normal, both eyes and all related structures EOM: EOMs intact bilaterally Neck Neck: Yes normal visual inspection, Yes no meningeal signs, Yes trachea midline, Yes supple and No anterior neck swelling Resp Effort & Inspection: normal respiratory effort, no respiratory distress and no stridor Auscultation: clear to auscultation bilaterally, no crackles, no rales, no rhonchi and no wheezes Cardio Rate: regular rate Heart sounds: S1 normal heart sound present and S2 normal heart sound present GI Inspection: Yes normal to inspection Palpation (GI): Soft to palpation, nontender, no guarding and not rigid Skin Rashes: no rashes Wounds: no wounds Neuro General: patient oriented x3, tone normal and no meningeal signs Cranial nerves: Yes CN's II-XII intact bilaterally Gait exam (Neuro): Normal gait present Extrem General: Yes normal to inspection Course Course Course Narrative: 1409--labs reassuring. Troponin x2 negative. Mi unlikely. -UA negative -viral testing negative. Rapid strep negative XR chest 1V IMPRESSION: Right lower lobe pneumonia. No definite effusion. COPD. Cardiac enlargement. > will treat patient with p.o. antibiotics. Safe for discharge back to assisted living Results discussed with patient including worrisome signs and symptoms and strict return precautions, and when to return to the emergency department. They verbalized understanding and feel safe for discharge at this time. Medications Administered Discontinued Medications Generic Name Dose Route Start Last Admin Trade Name Freq PRN Reason Stop Dose Admin Al Hydroxide/Mg Hydroxide 30 ml 06/20/24 10:18 06/20/24 10:27 Magnesium Hydrox/Alum Hydrox 30 Ml Oral.Susp PO 06/20/24 10:19 30 ml ONCE ONE Administration Azithromycin 500 mg 06/20/24 14:10 06/20/24 14:28 Azithromycin 500 Mg Tablet PO 06/20/24 14:11 500 mg ONCE ONE Administration Famotidine 20 mg 06/20/24 10:18 06/20/24 10:27 Famotidine/Pf 20 Mg/2 Ml Vial IVPUSH 06/20/24 10:19 20 mg ONCE ONE Administration Sodium Chloride 1,000 mls @ 999 mls/hr 06/20/24 10:30 06/20/24 10:26 Ns IV 06/20/24 11:30 999 mls/hr .Q1H1M COURTNEY Administration Medical Decision Making Medical Decision Making MDM Narrative: 83-year-old female with a past medical history of asthma, COPD, HLD, HTN, dementia, presenting to the ED via EMS from [facility] complaining of epigastric abdominal pain radiating to chest and throat s/p eating breakfast [employer]. On exam vital signs stable, NAD, nontoxic appearing, A&O x2 with known baseline dementia, lungs CTA, abdomen soft and nontender. Oropharynx WNL. Concern for ACS vs GERD/gastritis. Lower suspicion for dissection or pneumonia or PE/CHF Plan: EKG, labs, UA, CXR, SARs Please refer to course for remaining clinical decision making, interpretation of labs/imaging results, and discussions with consultants and/or family members. Differential Diagnosis Differential Diagnoses: The differential diagnosis associated with the presentation includes As above Admission/Observation Consideration of admission/observation: Escalation of care including admission/observation considered Lab Data [facility] Lab Attestation statement: I reviewed the patient's lab results. 06/20/24 10:36 06/20/24 10:36 Labs: Lab Results 06/20/24 06/20/24 06/20/24 Range/Units 10:36 10:38 13:41 WBC 7.3 (4.8-10.8) X10*3/uL RBC 4.48 (4.20-5.50) X10*6/uL Hgb 12.4 (12.0-16.0) g/dl Hct 39.1 (37.0-47.0) % MCV 87.3 (80.0-98.0) fL MCH 27.7 (27.0-33.0) pg MCHC 31.7 (31.0-35.0) g/dl RDW 13.4 (11.0-16.0) % Plt Count 263 (160-400) X10*3/uL MPV 9.3 L (9.4-12.3) fL Absolute Nucleated RBC 0.000 (0.0-0.012) X10*3/uL Nucleated RBC % (auto) 0.0 (0.0-0.2) /100WBC Sodium 140 (135-145) mmol/L Potassium 4.0 (3.3-5.1) mmol/L Chloride 106 (96-108) mmol/L Carbon Dioxide 27 (22-29) mmol/L Anion Gap 11 L (12-20) BUN 9 (9-16) mg/dL Creatinine 0.63 (0.5-1.4) mg/dL Estim Creat Clear Calc 46.7 Estimated GFR > 60 Random Glucose 92 (60-115) mg/dL Calcium 8.2 L (8.4-10.2) mg/dL Magnesium 2.4 (1.6-2.6) mg/dL Total Bilirubin 0.3 (0.0-1.0) mg/dL AST 22 (5-31) U/L ALT < 6 (0-31) U/L Alkaline Phosphatase 75 (39-117) U/L Troponin I High Sens 5.0 6.1 (<3.5-17.0) ng/L Total Protein 5.6 L (6.5-8.0) g/dL Albumin 2.9 L (3.5-5.0) g/dL Lipase 12 (8-78) U/L Urine Color Urine Appearance Urine pH (5.0-9.0) Ur Specific [place] (1.005-1.025) Urine Protein (Neg-Trace) mg/dL Urine Glucose (UA) (Negative) mg/dL Urine Ketones (Negative) mg/dL Urine Blood (Negative) Urine Nitrite (Negative) Ur Leukocyte Esterase (Negative) Influenza Type A (PCR) NEGATIVE (Negative) Influenza Type B (PCR) NEGATIVE (Negative) RSV RNA Qual (PCR) NEGATIVE (Negative) SARS-CoV-2 RNA (RT-PCR) NEGATIVE (Negative) S. pyogenes GrpA CLOTILDE Negative (Negative) 06/20/24 Range/Units 13:54 WBC (4.8-10.8) X10*3/uL RBC (4.20-5.50) X10*6/uL Hgb (12.0-16.0) g/dl Hct (37.0-47.0) % MCV (80.0-98.0) fL MCH (27.0-33.0) pg MCHC (31.0-35.0) g/dl RDW (11.0-16.0) % Plt Count (160-400) X10*3/uL MPV (9.4-12.3) fL Absolute Nucleated RBC (0.0-0.012) X10*3/uL Nucleated RBC % (auto) (0.0-0.2) /100WBC Sodium (135-145) mmol/L Potassium (3.3-5.1) mmol/L Chloride (96-108) mmol/L Carbon Dioxide (22-29) mmol/L Anion Gap (12-20) BUN (9-16) mg/dL Creatinine (0.5-1.4) mg/dL Estim Creat Clear Calc Estimated GFR Random Glucose (60-115) mg/dL Calcium (8.4-10.2) mg/dL Magnesium (1.6-2.6) mg/dL Total Bilirubin (0.0-1.0) mg/dL AST (5-31) U/L ALT (0-31) U/L Alkaline Phosphatase (39-117) U/L Troponin I High Sens (<3.5-17.0) ng/L Total Protein (6.5-8.0) g/dL Albumin (3.5-5.0) g/dL Lipase (8-78) U/L Urine Color Yellow Urine Appearance Clear Urine pH 7.0 (5.0-9.0) Ur Specific [place] 1.010 (1.005-1.025) Urine Protein Negative (Neg-Trace) mg/dL Urine Glucose (UA) Negative (Negative) mg/dL Urine Ketones Negative (Negative) mg/dL Urine Blood Negative (Negative) Urine Nitrite Negative (Negative) Ur Leukocyte Esterase Negative (Negative) Influenza Type A (PCR) (Negative) Influenza Type B (PCR) (Negative) RSV RNA Qual (PCR) (Negative) SARS-CoV-2 RNA (RT-PCR) (Negative) S. pyogenes GrpA CLOTILDE (Negative) Independent Interpretation I performed an independent interpretation of an: Plain X-Ray Radiology Impression Discussion of test interpretation with radiology: I have reviewed the radiologist's reading. Independent Historian Clinical information obtained from an independent historian. History obtained from or confirmed by: EMS External Record Review External record reviewed: Inpatient record, Office record, Outpatient record, Prior outpatient labs, Prior outpatient radiology, Primary care record and Outside ED record Tests considered The following testing was considered but not selected: As above Prescription Management I considered prescription management with: Other Chronic Conditions Patient?s care impacted by: Other Social Determinants Patient?s care significantly limited by Social Determinants of Health including: Other Social Determinant of Health Discharge Plan Discharge Clinical Impression: Pneumonia Patient Disposition: Xfer [facility] Transfer Details: [facility] assisted-living Instructions: Pneumonia (ED) Additional Instructions: You have pneumonia. Cefpodoxime and azithromycin or antibiotics please take as prescribed until completion Please have close follow-up with your primary care doctor Continue home prescribed medications If her symptoms persist or worsen return to the ED Prescriptions: New cefpodoxime 200 mg tablet 200 mg PO BID 7 Days Qty: 14 0RF Rx Instructions: must administer with a meal/food azithromycin 250 mg tablet 250 mg PO DAILY 4 Days Qty: 4 0RF Rx Instructions: start on day 2 of therapy No Action famotidine [Pepcid] 20 mg tablet 20 mg PO BEDTIME Qty: 30 0RF polyethylene glycol 3350 [Miralax] 17 gram powder in packet 17 g PO DAILY Qty: 30 0RF docusate sodium 100 mg tablet 100 mg PO BID PRN (Reason: constipation) Qty: 30 0RF cefuroxime axetil 500 mg tablet 500 mg PO BID 7 Days Qty: 14 0RF azithromycin 250 mg tablet See Rx Instructions PO .COMPLEX Qty: 6 0RF Rx Instructions: For 250 mg dose pack: take 500 mg today (day 1), then 250 mg for 4 days (days 2-5) rosuvastatin 20 mg tablet 20 mg PO BEDTIME cholecalciferol (vitamin D3) 25 mcg (1,000 unit) capsule 25 mcg PO DAILY aspirin [Adult Low Dose Aspirin] 81 mg tablet,delayed release (DR/EC) 81 mg PO DAILY omeprazole 20 mg capsule,delayed release(DR/EC) 20 mg PO DAILY Qty: 90 1RF lorazepam 0.5 mg tablet 0.5 mg PO Q8H PRN (Reason: anxiety) lisinopril 2.5 mg tablet 2.5 mg PO DAILY metoprolol succinate 25 mg tablet extended release 24 hr 25 mg PO DAILY sucralfate 1 gram tablet 1 g PO BID Qty: 60 1RF Interventions: ED Discharge Assessment Last Done: 06/20/24 14:28 Discharge Date/Time: 06/20/24 14:30 Print Language: Bulgarian
[2024-06-20] MEDS: 0.9 % Sodium Chloride 1,000 ML 999 ML IV (10:26)
[2024-06-20] MEDS: Famotidine/PF 20 MG/2 ML VIAL IVPUSH (10:27)
[2024-06-20] MEDS: Magnesium Hydrox/Alum Hydrox 30 ML ORAL.SUSP PO (10:27)
[2024-06-20 10:53] LABS: Hematocrit 39.1 % (37.0-47.0); Hemoglobin 12.4 g/dl (12.0-16.0); Mean Corpuscular HGB Conc 31.7 g/dl (31.0-35.0); Mean Corpuscular Hemoglobin 27.7 pg (27.0-33.0); Mean Corpuscular Volume 87.3 fL (80.0-98.0); Mean Platelet Volume 9.3 fL (9.4-12.3); Platelet Count 263 X10*3/uL (160-400); Red Blood Count 4.48 X10*6/uL (4.20-5.50); Red Cell Distribution Width 13.4 % (11.0-16.0); White Blood Count 7.3 X10*3/uL (4.8-10.8)
[2024-06-20 11:05] LABS: Lipase 12 U/L (8-78); Magnesium 2.4 mg/dL (1.6-2.6)
[2024-06-20 11:09] LABS: Alanine Aminotransferase < 6 U/L (0-31); Albumin Level 2.9 g/dL (3.5-5.0); Alkaline Phosphatase 75 U/L (39-117); Anion Gap 11 (12-20); Aspartate Amino Transferase 22 U/L (5-31); Bilirubin Total 0.3 mg/dL (0.0-1.0); Blood Urea Nitrogen 9 mg/dL (9-16); Calcium 8.2 mg/dL (8.4-10.2); Carbon Dioxide 27 mmol/L (22-29); Chloride 106 mmol/L (96-108); Creatinine Clr Calc Pharmacy 46.7; Estimated Glomerular Filt Rate > 60; Glucose Random 92 mg/dL (60-115); Sodium 140 mmol/L (135-145); Total Protein 5.6 g/dL (6.5-8.0)
[2024-06-20 11:22] LABS: Influenza A PCR NEGATIVE (Negative); Influenza B PCR NEGATIVE (Negative); Resp Syncy Virus RNA Qual PCR NEGATIVE (Negative); SARS COV2 PCR INHOUSE NEGATIVE (Negative)
[2024-06-20 11:26] VITALS: BP 141/57; PULSE 66; RESP 14; TEMP 36.3; O2SAT 100
[2024-06-20 11:49] LABS: IDNOW Serial# 55D5AD1C; Strep A Nucleic Acid Negative (Negative)
[2024-06-20 14:03] LABS: Appearance Urine Clear; Color Urine Yellow; Glucose Urine UA Negative (Negative); Leukocyte Esterase Urine Negative (Negative); Nitrite Urine Negative (Negative); Urine Blood Negative (Negative); Urine Ketones Negative (Negative); Urine Protein Negative (Neg-Trace)
[2024-06-20 14:08] LABS: Troponin-I High Sensitivity 6.1 ng/L (<3.5-17.0)
[2024-06-20 14:28] VITALS: BP 110/77; PULSE 61; RESP 16; TEMP 36.5; O2SAT 96
[2024-06-20] MEDS: Azithromycin 500 MG TABLET PO (14:28)
--- NOTE | 2024-06-20 15:01 | PC.NURSE ---
verbal nurse to nurse report given to olman otero [facility] in [place] at [phone]
== END 2024-06-20 14:30 | disposition skilled nursing facility (03) ==
PROVIDERS: Physician Assistant; Emergency Provider Emergency Medicine
DX: J18.9 Pneumonia, unspecified organism (principal); R07.9 Chest pain, unspecified; R10.13 Epigastric pain; R10.9 Unspecified abdominal pain
CPT/HCPCS: 0241U; 36415; 71045; 80053; 81003; 83690; 83735; 84484; 85027; 87651; 93005; 96374; 99284; J1308

== ENCOUNTER → 2024-06-20 09:23 | Outpatient (BNV) | payer MEDICARE, SELFPAY | PROVIDERS: Emergency Provider Emergency Medicine; Visit Provider Internal Medicine Cardiovascular Disease | DX: I44.7 Left bundle-branch block, unspecified (principal) | CPT/HCPCS: 93010 ==

== ENCOUNTER → 2024-06-20 09:47 | Outpatient (BNV) | payer MEDICARE, SELFPAY | PROVIDERS: Emergency Provider Emergency Medicine; Visit Provider Radiology Diagnostic Radiology | DX: J18.1 Lobar pneumonia, unspecified organism (principal) | CPT/HCPCS: 71045 ==

== ENCOUNTER 2024-08-04 10:08 | Emergency (ER) | payer MEDICARE, SELFPAY ==
--- NOTE | ~2024-08-04 | XR_ITS ---
CLINICAL HISTORY: AMS, PNA last month 1 view chest x-ray Comparison: 06/20/2024 10:02 AM EDT: CR 05/06/2024 Findings: Hyperinflated/emphysematous lungs and blunted costophrenic recesses as before. Interval improvement with near-complete resolution of previously noted right lower lung opacity (only subtle hazy right lower lung opacity seen on current exam). No significant change in cardiomediastinal silhouette. No acute fracture. IMPRESSION: Interval significant improvement with near-complete resolution of previously noted right lower lung opacity (only subtle hazy right lower lung opacity seen on current exam). This document has been electronically signed by: Balbina Engel MD on 08/04/2024 13:53:23
--- NOTE | ~2024-08-04 | CT_ITS ---
CLINICAL HISTORY: AMS CT head without contrast Comparison: 01/26/2024 Findings: No intra-axial mass, midline shift, hydrocephalus, or acute hemorrhage. Prominent partially confluent cerebral hemispheric white matter hypodensities due to age-related small-vessel ischemic changes/small-vessel ischemic disease. There is no sinus or mastoid fluid. Bilateral cataract surgery. There is no acute fracture. IMPRESSION: 1. No acute intracranial findings. This document has been electronically signed by: Balbina Engel MD on 08/04/2024 13:09:42
--- NOTE | 2024-08-04 10:11 | ED.AMS ---
HPI - Altered Mental Status General Chief Complaint: Altered Mental Status Stated Complaint: AMS Time Seen by Provider: 08/04/24 10:10 Source: patient and EMS Mode of arrival: EMS Limitations: altered mental status History of Present Illness ED Provider: phil fox np HPI narrative: Patient is an 83-year-old female with past medical history of COPD, dementia, hypertension, left bundle-branch block, hypercholesterolemia, anxiety, dyspepsia, diverticulosis, osteoporosis who presents emergency department via EMS for evaluation coming from the [facility]. Evidently her son-in-law is typically the one to come in to help her, per staff from the facility he has not been there recently. EMS personnel reported that they personally saw patient a couple of months ago and she has lost a significant amount of weight since then. The [facility] staff report that she has not been eating. Patient is altered, unable to provide any meaningful history Related Data Home Medications ?Medication ?Instructions ?Recorded ?Confirmed rosuvastatin 20 mg tablet 20 mg PO DAILY 05/22/20 08/05/24 lorazepam 0.5 mg tablet 0.5 mg PO DAILY anxiety 07/19/22 08/05/24 metoprolol succinate 25 mg 25 mg PO DAILY 01/17/24 08/04/24 tablet,extended release 24 hr divalproex 125 mg tablet,delayed 125 mg PO BID@1400,2100 08/04/24 08/05/24 release escitalopram oxalate 10 mg tablet 10 mg PO DAILY 08/04/24 08/04/24 olanzapine 2.5 mg tablet 2.5 mg PO DAILY@1800 08/04/24 08/05/24 trazodone 50 mg tablet 50 mg PO DAILY@1400 08/04/24 08/05/24 famotidine 20 mg tablet 20 mg PO DAILY 08/05/24 08/05/24 ipratropium 20 mcg-albuterol 100 1 puff inhalation QID 08/05/24 08/05/24 mcg/actuation mist for inhalation (Combivent Respimat) melatonin 3 mg tablet 6 mg PO BEDTIME 08/05/24 08/05/24 polyethylene glycol 3350 17 gram 17 g PO DAILY 08/05/24 08/05/24 oral powder packet (HealthyLax) quetiapine 25 mg tablet 50 mg PO DAILY@1930 08/05/24 08/05/24 sennosides 8.6 mg tablet (senna) 17.2 mg PO BEDTIME 08/05/24 08/05/24 trazodone 50 mg tablet 75 mg PO BEDTIME 08/05/24 08/05/24 Allergies Allergy/AdvReac Type Severity Reaction Status Date / Time amoxicillin (AMOXICILLIN) Allergy Intermediate ITCHY Verified 08/04/24 10:30 EYES/RASH codeine (CODEINE) Allergy Unknown RASH Verified 08/04/24 10:30 zocor Allergy Unknown muscle pain Uncoded 08/04/24 10:30 Review of Systems Review of Systems: Yes Unobtainable due to mental status [facility] Past Medical History Attestation statement: The following information was validated with the patient. Source: old records reviewed Medical History Lightheadedness Abdominal pain Helicobacter pylori (H. pylori) Osteoporosis On beta maria d at home Asthma COPD (chronic obstructive pulmonary disease) Hypercholesteremia HTN (hypertension) Positive FIT (fecal immunochemical test) Surgical History History of surgical removal of ganglion cyst Hx of hysterectomy Hx of bilateral cataract extraction Hx of colonoscopy Family History Family History Daughter Parkinson disease Breast cancer Brother Lung cancer Daughter Heart disease Social History Social History Household Members: Other Household Members Other:: Grandson: Balta Housing: House Do you presently have visiting nurse or other home services: No Alcohol intake: never Patient Tobacco Use Status: Never used Tobacco Tobacco use type: Cigarette Cigarette Packs Per Day: 0.5 Cigarettes Per Day: 10.0 Years Smoked: over 30 years Smoked in Last 30 Days: No e-Cigarette/Vaping Use: Never Used Second Hand Smoke Exposure: Yes Use of substances other than those prescribed or required for medical reasons: No Advance Directives: Yes Advance Directives on File: Yes Advance Directives Date on File: 05/29/24 Do you have a plan to hurt others: No Plan service: No Physical Exam ED Vital Signs: Vital Signs - 24 hr 08/05/24 19:56 08/05/24 22:00 08/05/24 23:53 Temperature 100 F 98.2 F 97.9 F Pulse Rate 64 68 66 Respiratory Rate 16 16 16 Blood Pressure 162/84 H 117/68 125/65 Pulse Oximetry 92 93 Oxygen Delivery Method Room Air Room Air Room Air 08/06/24 02:00 08/06/24 04:00 08/06/24 07:57 Temperature 97.3 F 97.1 F 98 F Pulse Rate 64 60 58 Respiratory Rate 18 16 17 Blood Pressure 111/60 108/71 139/70 Pulse Oximetry 93 93 95 Oxygen Delivery Method Room Air Room Air Room Air 08/06/24 09:22 08/06/24 11:00 08/06/24 11:40 Temperature 97.4 F 97.4 F 97.9 F Pulse Rate 59 59 82 Respiratory Rate 17 17 17 Blood Pressure 137/70 137/70 104/62 Pulse Oximetry 92 92 97 Oxygen Delivery Method Room Air Room Air Room Air BMI result Body Mass Index 14.1 Appearance: Alert.? Disoriented. Frail, cachectic. Incontinent of urine and bowel. Eyes: Pupils equal, round and reactive to light.? ENT: Pharynx normal.?? Neck: Normal inspection.? Neck supple.?? CVS: Heart sounds normal. Normal heart rate and rhythm.? Pulses normal.?? Respiratory: No respiratory distress.? Lung sounds clear to auscultation bilaterally?? Abdomen: Soft and non-tender. Normoactive bowel sounds. ?? Skin: Skin warm and dry.? Normal skin color.? Extremities: No lower extremity edema.? Neuro: Moves all extremities spontaneously. Course Reevaluation(s) Reevaluation #1: CBC is without leukocytosis she does however have a very mild left shift, no anemia or thrombocytopenia. VBG revealing metabolic alkalosis, pH of 7.48, bicarb of 38, suspect secondary to dehydration lack of oral intake concern for failure to thrive. Mild hypokalemia 3.2, will replete with potassium chloride 40 mEq PO. No CAROLINA. LFTs unremarkable. No lactic acidosis. Ammonia is normal. BNP of 143. High sensitive troponin within normal range at 8.8, ECG reveals sinus bradycardia with left bundle-branch block ventricular rate of 55, known GEO, QTC 484, T-wave inversion lateral leads I, V5-V6, apparent consistent with prior in June of 2024. Urinalysis with microscopic hematuria potentially from straight catheterization, nitrites negative, no pyuria, infection, calcium oxalate crystals are present potentially may have nephrolithiasis but benign abdominal examination no CAROL[place], low suspicion for obstructive uropathy. CT unremarkable. CXR without acute pathology. Concern for failure to thrive, consult with case management for disposition planning, she is being placed in physician observation Time: 13:14 Reevaluation #2: Case management has been involved in care. Family is interested in assistance with long-term care placement. manager green was able to make contact with nurse from assisted living facility evidently there has been an NPA from psych they are recently adjusted medications over the past month or so and a feel as though they have noticed a decline in her mentation with these medication changes Time: 14:17 Reevaluation #3: Time: 10:18 Date: 08/05/24 Provider: JEWEL Bowie Time: 08:31 Date: 08/06/24 Provider: JEWEL Bowie No acute events reported overnight.? No current issues or complaints. VS stable. Physician observation ended at 08:30AM. Patient will be discharged to [facility] at 11:00 a.m. today via BLS. Medications Administered Discontinued Medications Generic Name Dose Route Start Last Admin Trade Name Freq PRN Reason Stop Dose Admin Atorvastatin Calcium 80 mg 08/04/24 21:00 08/05/24 20:56 Atorvastatin Calcium 80 Mg Tablet PO 80 mg BEDTIME COURTNEY Administration Diazepam 2.5 mg 08/04/24 22:13 08/04/24 22:27 Diazepam 10 Mg/2 Ml Cartridge IM 08/04/24 22:14 2.5 mg STAT STA Administration Diphenhydramine HCl 25 mg 08/04/24 22:13 08/04/24 22:27 Diphenhydramine Hcl 50 Mg/Ml Vial IM 08/04/24 22:14 25 mg ONCE ONE Administration Divalproex Sodium 125 mg 08/04/24 21:00 08/05/24 09:23 Divalproex Sodium Sprinkles 125 Mg PO 125 mg BID COURTNEY Administration Escitalopram Oxalate 10 mg 08/05/24 09:00 08/06/24 10:50 Escitalopram Oxalate 10 Mg Tablet PO 10 mg DAILY COURTNEY Administration Famotidine 20 mg 08/04/24 21:00 08/05/24 20:56 Famotidine 20 Mg Tablet PO 20 mg BEDTIME COURTNEY Administration Sodium Chloride 1,000 mls @ 999 mls/hr 08/04/24 13:15 08/04/24 15:22 Ns IV 08/04/24 14:15 Infused .Q1H1M COURTNEY Infusion Metoprolol Succinate 25 mg 08/05/24 09:00 08/06/24 09:34 Metoprolol Succinate Er 25 Mg Tab.Er.24h PO 25 mg DAILY COURTNEY Administration Protocol Olanzapine 2.5 mg 08/04/24 21:00 08/05/24 20:56 Olanzapine 2.5 Mg Tablet PO 2.5 mg BEDTIME COURTNEY Administration Olanzapine 10 mg 08/04/24 23:48 08/04/24 23:57 Olanzapine 10 Mg Vial IM 08/04/24 23:49 2.5 mg ONCE ONE Administration Potassium Chloride 40 meq 08/04/24 12:17 08/04/24 12:49 Potassium Chloride Packet 20 Meq Packet PO 08/04/24 12:18 40 meq ONCE ONE Administration Trazodone HCl 50 mg 08/04/24 21:00 08/05/24 20:56 Trazodone Hcl 50 Mg Tablet PO 50 mg BEDTIME COURTNEY Administration Medical Decision Making Medical Decision Making MDM Narrative: Patient is an 83-year-old female with past medical history of COPD, dementia, hypertension, left bundle-branch block, hypercholesterolemia, anxiety, dyspepsia, diverticulosis, osteoporosis presenting to the ED coming from assisted living facility via EMS, staff report that she is increasingly altered from her baseline typically A&O times do with dementia, concern for failure to thrive, she has not been eating. EMS of seen her personally in the past couple of months and states she has lost a significant amount of weight. She is not able to provide any meaningful history. She arrives frail cachectic and incontinent of urine and bowel. Does not appear in any respiratory distress. Not able to follow commands for much purposeful neurological examination. Will obtain CT of the head to evaluate for ICH, SDH, CVA. Will obtain CBC to evaluate for leukocytosis/ anemia, CMP and lipase to evaluate for abnormal electrolytes /abnormal renal function/ abnormal hepatic/biliary function, ammonia, VBG, POC glucose, EKG and troponin to evaluate for ischemia/ACS. Chest x-ray to evaluate for consolidation/ infiltrate/ mass/ pulmonary congestion, viral serologies, Urinalysis. 08/04/24 1242 Taylor Garcia MD I was informed by the patient's nurse that the patient is very agitated, trying to get out of bed, almost fell multiple times. Patient's tech constantly in the room with her but patient is very combative. Patient is being given IM Benadryl and diazepam. Differential Diagnosis Differential Diagnoses: The differential diagnosis associated with the presentation includes (See narrative above) Admission/Observation Consideration of admission/observation: Escalation of care including admission/observation considered (See narrative above and course narrative for further detail) Lab Data MDM Lab Attestation statement: I reviewed the patient's lab results. 08/04/24 11:15 08/04/24 11:15 Labs: Lab Results 08/04/24 08/04/24 08/04/24 Range/Units 10:29 11:14 11:15 WBC 7.3 (4.8-10.8) X10*3/uL RBC 5.04 (4.20-5.50) X10*6/uL Hgb 13.7 (12.0-16.0) g/dl Hct 42.4 (37.0-47.0) % MCV 84.1 (80.0-98.0) fL MCH 27.2 (27.0-33.0) pg MCHC 32.3 (31.0-35.0) g/dl RDW 14.8 (11.0-16.0) % Plt Count 213 (160-400) X10*3/uL MPV 10.1 (9.4-12.3) fL Immature Gran % (Auto) 0.3 (0.0-0.4) % Neut % (Auto) 74.6 H (45-73) % Lymph % (Auto) 16.9 L (20-40) % Harford % (Auto) 7.4 (2-11) % Eos % (Auto) 0.4 (0-4) % Baso % (Auto) 0.4 (0-2) % Lymph # (Auto) 1.2 (1.2-4.9) X10*3/uL Harford # (Auto) 0.5 (0.1-1.2) X10*3/uL Eos # (Auto) 0.0 (0.0-0.4) X10*3/uL Baso # (Auto) 0.0 (0.0-0.2) X10*3/uL Abs Immat Gran (auto) 0.02 (0.00-0.03) X10*3/uL Absolute Neuts (auto) 5.5 (2.0-8.3) x10*3/uL Absolute Nucleated RBC 0.000 (0.0-0.012) X10*3/uL Nucleated RBC % (auto) 0.0 (0.0-0.2) /100WBC VBG pH (7.32-7.43) VBG pCO2 mmHg VBG pO2 mmHg VBG HCO3 (22-26) mmol/L VBG O2 Saturation % VBG Base Excess mmol/L Sodium 141 (135-145) mmol/L Potassium 3.2 L (3.3-5.1) mmol/L Chloride 102 (96-108) mmol/L Carbon Dioxide 31 H (22-29) mmol/L Anion Gap 11 L (12-20) BUN 12 (9-16) mg/dL Creatinine 0.72 (0.5-1.4) mg/dL Estim Creat Clear Calc 34.8 Estimated GFR > 60 POC Glucose 91 (60-115) mg/dL Random Glucose 98 (60-115) mg/dL Lactic Acid 1.1 (0.5-2.0) mmol/L Calcium 8.0 L (8.4-10.2) mg/dL Magnesium 2.2 (1.6-2.6) mg/dL Total Bilirubin 0.3 (0.0-1.0) mg/dL AST 21 (5-31) U/L ALT < 6 (0-31) U/L Alkaline Phosphatase 81 (39-117) U/L Ammonia 22 (13-55) umol/L Troponin I High Sens 8.8 (<3.5-17.0) ng/L B-Natriuretic Peptide 143 H (<100) pg/mL Total Protein 5.2 L (6.5-8.0) g/dL Albumin 2.7 L (3.5-5.0) g/dL Lipase 10 (8-78) U/L Urine Color Yellow Urine Appearance Cloudy Urine pH 5.5 (5.0-9.0) Ur Specific Burchard 1.025 (1.005-1.025) Urine Protein 100 (2+) H (Neg-Trace) mg/dL Urine Glucose (UA) Negative (Negative) mg/dL Urine Ketones Trace (Negative) mg/dL Urine Blood Small (1+) H (Negative) Urine Nitrite Negative (Negative) Ur Leukocyte Esterase Negative (Negative) Urine RBC 3-5 H (0-2) /HPF Urine WBC 0-5 (0-5) /HPF Ur Squamous Epith Cells 3-5 (0-2) /HPF Calcium Oxalate Crystal Present Urine Bacteria None Seen (None Seen) Hyaline Casts 0-2 (0-2) /LPF Urine Test NEGATIVE (NEGATIVE) Influenza Type A (PCR) NEGATIVE (Negative) Influenza Type B (PCR) NEGATIVE (Negative) RSV RNA Qual (PCR) NEGATIVE (Negative) SARS-CoV-2 RNA (RT-PCR) NEGATIVE (Negative) 08/04/24 Range/Units 11:26 WBC (4.8-10.8) X10*3/uL RBC (4.20-5.50) X10*6/uL Hgb (12.0-16.0) g/dl Hct (37.0-47.0) % MCV (80.0-98.0) fL MCH (27.0-33.0) pg MCHC (31.0-35.0) g/dl RDW (11.0-16.0) % Plt Count (160-400) X10*3/uL MPV (9.4-12.3) fL Immature Gran % (Auto) (0.0-0.4) % Neut % (Auto) (45-73) % Lymph % (Auto) (20-40) % Harford % (Auto) (2-11) % Eos % (Auto) (0-4) % Baso % (Auto) (0-2) % Lymph # (Auto) (1.2-4.9) X10*3/uL Harford # (Auto) (0.1-1.2) X10*3/uL Eos # (Auto) (0.0-0.4) X10*3/uL Baso # (Auto) (0.0-0.2) X10*3/uL Abs Immat Gran (auto) (0.00-0.03) X10*3/uL Absolute Neuts (auto) (2.0-8.3) x10*3/uL Absolute Nucleated RBC (0.0-0.012) X10*3/uL Nucleated RBC % (auto) (0.0-0.2) /100WBC VBG pH 7.48 H (7.32-7.43) VBG pCO2 51 mmHg VBG pO2 35 mmHg VBG HCO3 38 H (22-26) mmol/L VBG O2 Saturation 56.0 % VBG Base Excess 13.3 mmol/L Sodium (135-145) mmol/L Potassium (3.3-5.1) mmol/L Chloride (96-108) mmol/L Carbon Dioxide (22-29) mmol/L Anion Gap (12-20) BUN (9-16) mg/dL Creatinine (0.5-1.4) mg/dL Estim Creat Clear Calc Estimated GFR POC Glucose (60-115) mg/dL Random Glucose (60-115) mg/dL Lactic Acid (0.5-2.0) mmol/L Calcium (8.4-10.2) mg/dL Magnesium (1.6-2.6) mg/dL Total Bilirubin (0.0-1.0) mg/dL AST (5-31) U/L ALT (0-31) U/L Alkaline Phosphatase (39-117) U/L Ammonia (13-55) umol/L Troponin I High Sens (<3.5-17.0) ng/L B-Natriuretic Peptide (<100) pg/mL Total Protein (6.5-8.0) g/dL Albumin (3.5-5.0) g/dL Lipase (8-78) U/L Urine Color Urine Appearance Urine pH (5.0-9.0) Ur Specific Burchard (1.005-1.025) Urine Protein (Neg-Trace) mg/dL Urine Glucose (UA) (Negative) mg/dL Urine Ketones (Negative) mg/dL Urine Blood (Negative) Urine Nitrite (Negative) Ur Leukocyte Esterase (Negative) Urine RBC (0-2) /HPF Urine WBC (0-5) /HPF Ur Squamous Epith Cells (0-2) /HPF Calcium Oxalate Crystal Urine Bacteria (None Seen) Hyaline Casts (0-2) /LPF Urine Test (NEGATIVE) Influenza Type A (PCR) (Negative) Influenza Type B (PCR) (Negative) RSV RNA Qual (PCR) (Negative) SARS-CoV-2 RNA (RT-PCR) (Negative) Independent Interpretation I performed an independent interpretation of an: EKG (See course narrative) Radiology Impression Discussion of test interpretation with radiology: I have reviewed the radiologist's reading. Radiologist Impression: CT head without contrast Comparison: 01/26/2024 Findings: No intra-axial mass, midline shift, hydrocephalus, or acute hemorrhage. Prominent partially confluent cerebral hemispheric white matter hypodensities due to age-related small-vessel ischemic changes/small-vessel ischemic disease. There is no sinus or mastoid fluid. Bilateral cataract surgery. There is no acute fracture. IMPRESSION: 1. No acute intracranial findings. 1 view chest x-ray Comparison: 06/20/2024 10:02 AM EDT: CR 05/06/2024 Findings: Hyperinflated/emphysematous lungs and blunted costophrenic recesses as before. Interval improvement with near-complete resolution of previously noted right lower lung opacity (only subtle hazy right lower lung opacity seen on current exam). No significant change in cardiomediastinal silhouette. No acute fracture. IMPRESSION: Interval significant improvement with near-complete resolution of previously noted right lower lung opacity (only subtle hazy right lower lung opacity seen on current exam). Independent Historian Clinical information obtained from an independent historian. History obtained from or confirmed by: EMS External Record Review External record reviewed: Outpatient record Chronic Conditions Patient?s care impacted by: Other (See narrative above) Discharge Plan Discharge Clinical Impression: Adult failure to thrive Patient Disposition: Xfer Inpatient Rehab Fac Transfer Details: [facility] via BLS at 11AM on 08/06/2024 Instructions: Failure to Thrive in Older Adults (ED) Additional Instructions: Kassidy was seen in the ER and was medically cleared. Please continue all at-home medications as prescribed. If any new or worsening symptoms occur including but not limited to worsening change in mentation, severe chest pain or shortness for breath, please seek emergent care Prescriptions: No Action trazodone 50 mg tablet 50 mg PO DAILY@1400 olanzapine 2.5 mg tablet 2.5 mg PO DAILY@1800 divalproex 125 mg tablet,delayed release (DR/EC) 125 mg PO BID@1400,2100 escitalopram oxalate 10 mg tablet 10 mg PO DAILY quetiapine 25 mg Tablet 50 mg PO DAILY@1930 sennosides [senna] 8.6 mg Tablet 17.2 mg PO BEDTIME trazodone 50 mg Tablet 75 mg PO BEDTIME polyethylene glycol 3350 [HealthyLax] 17 gram Powder In Packet 17 g PO DAILY melatonin 3 mg Tablet 6 mg PO BEDTIME famotidine 20 mg Tablet 20 mg PO DAILY Combivent Respimat 20-100 mcg/actuation Mist 1 puff INHALATION QID Rx Instructions: space evenly during waking hours rosuvastatin 20 mg tablet 20 mg PO DAILY lorazepam 0.5 mg tablet 0.5 mg PO DAILY metoprolol succinate 25 mg tablet extended release 24 hr 25 mg PO DAILY Referrals: [facility] [Outside] Referral Note: [address] [place] [phone] Interventions: ED Discharge Assessment Last Done: 08/06/24 11:00 Discharge Date/Time: 08/06/24 12:33 Print Language: Albanian
--- NOTE | 2024-08-04 10:21 | ECG_ITS ---
Test Reason : ams Blood Pressure : */* mmHG Vent. Rate : 55 BPM Atrial Rate : 55 BPM P-R Int : 174 ms QRS Dur : 176 ms QT Int : 506 ms P-R-T Axes : 89 -52 160 degrees QTcB Int : 484 ms Sinus bradycardia Left axis deviation Left bundle branch block Abnormal ECG When compared with ECG of 20-Jun-2024 09:31, No significant change was found Referred By: Xenia Lopez Electronically Signed By: ROBER LEMONS MD
[2024-08-04 10:28] VITALS: BP 172/96; BP 174/90; PULSE 50; PULSE 57; RESP 14; TEMP 37; O2SAT 96; O2SAT 97; BMI 14.1
[2024-08-04 10:34] LABS: Glucose, Whole Blood 91 mg/dL (60-115)
[2024-08-04 11:25] LABS: Hematocrit 42.4 % (37.0-47.0); Hemoglobin 13.7 g/dl (12.0-16.0); Imm Gran Abs Auto 0.02 X10*3/uL (0.00-0.03); Imm Gran Pct Auto 0.3 % (0.0-0.4); Lymphocytes Absolute Auto 1.2 X10*3/uL (1.2-4.9); MANUAL DIFF FLAG NO; Mean Corpuscular HGB Conc 32.3 g/dl (31.0-35.0); Mean Corpuscular Hemoglobin 27.2 pg (27.0-33.0); Mean Corpuscular Volume 84.1 fL (80.0-98.0); NRBC Abs Auto 0.000 X10*3/uL (0.0-0.012); NRBC Pct Auto 0.0 /100WBC (0.0-0.2); Platelet Count 213 X10*3/uL (160-400); Red Blood Count 5.04 X10*6/uL (4.20-5.50); White Blood Count 7.3 X10*3/uL (4.8-10.8)
[2024-08-04 11:29] LABS: VBG HCO3 38 mmol/L (22-26); VBG O2 % Saturation 56.0 %
[2024-08-04 11:32] LABS: Appearance Urine Cloudy; Glucose Urine UA Negative (Negative); PH 5.5 (5.0-9.0); Specific Gravity - Urine 1.025 (1.005-1.025); UMIC TRIGGER UACC YES
[2024-08-04 11:33] LABS: Ammonia 22 umol/L (13-55)
[2024-08-04 11:34] LABS: UPreg QC Valid YES
[2024-08-04 11:36] LABS: Venous Blood Gas Refer to POC result
[2024-08-04 11:46] LABS: B Type Natriuretic Peptide 143 pg/mL (<100)
[2024-08-04 11:48] LABS: Troponin-I High Sensitivity 8.8 ng/L (<3.5-17.0)
[2024-08-04 11:55] LABS: Alanine Aminotransferase < 6 U/L (0-31); Albumin Level 2.7 g/dL (3.5-5.0); Alkaline Phosphatase 81 U/L (39-117); Anion Gap 11 (12-20); Aspartate Amino Transferase 21 U/L (5-31); Blood Urea Nitrogen 12 mg/dL (9-16); Calcium 8.0 mg/dL (8.4-10.2); Carbon Dioxide 31 mmol/L (22-29); Chloride 102 mmol/L (96-108); Creatinine Clr Calc Pharmacy 34.8; Estimated Glomerular Filt Rate > 60; Lipase 10 U/L (8-78); Magnesium 2.2 mg/dL (1.6-2.6); Potassium 3.2 mmol/L (3.3-5.1); Sodium 141 mmol/L (135-145); Total Protein 5.2 g/dL (6.5-8.0)
[2024-08-04 12:05] LABS: Resp Syncy Virus RNA Qual PCR NEGATIVE (Negative); SARS COV2 PCR INHOUSE NEGATIVE (Negative)
[2024-08-04] MEDS: Potassium Chloride Packet 20 MEQ PACKET 40 MEQ PO (12:49)
[2024-08-04 12:52] VITALS: BP 137/62; PULSE 63; RESP 18; O2SAT 94
--- NOTE | 2024-08-04 13:48 | MHC.CM.PN ---
Addendum entered by Carrie Jorgensen 08/04/24 15:10: This CM met with pt with her brother Robby Rey ([phone]), [id number], and niece Kira ([phone]) present at bedside. Per pts brother Robby and niece Kira, the pt has been in poor condition for some time now, according to them they have asked the pts HCP's to get her help, and they were told we pay enough for the [facility] that we shouldn't be getting calls from them. Per pts brother, he finally had enough today and couldn't bear seeing his sister not get the help she needs. Robby states she has been so heavily medicated that she hasn't been able to eat. Pts family very distraught about the situation, emotional support provided to them by this CM. Second call placed to pts daughter/HCP Abby, which went straight to voicemail, message left. Second call placed to pts son-in-law Nj, he answered and spoke with this CM. Nj states that his [id number] had been having a difficult time since being at [facility]. He states they would like her to go to a residential. Nj states he is pretty certain that Joya the biofuels technology development manager from [facility] will call him tomorrow to state that she cannot return there. He states that there have been many phone calls from the facility with concerns. He states [facility] isn't a locked facility, and she has once walked out of the building and was out on [address]. Nj reiterated that they are looking for LTC. PT eval pending. Psych eval pending. Original Note: CM consult received, chart review completed. Pt came in from [facility] in [place] where she was being visited by her brother and he did not like the appearance of his sister, was concerned about her and called 911. This CM placed calls to pts HCP's, daughter Abby and son-in-law Nj, voicemails left, awaiting return call. This CM placed a call to the [facility] and spoke to one of the nurses Lexy. Lexy states the pt has become unmanageable there, she was very intrusive and banging on other residents doors, and unable to redirect. Lexy states a OVERHEAD GARAGE DOOR HANGER with the psych group had been tweaking her medications, and around 2-3 weeks ago it was almost as if she went into a catatonic state.
[2024-08-04 14:05] VITALS: BP 125/56; PULSE 56; RESP 14; TEMP 36.6; O2SAT 96
[2024-08-04 18:33] VITALS: BP 153/83; PULSE 75; RESP 20; O2SAT 99
[2024-08-04] MEDS: diazePAM 10 MG/2 ML CARTRIDGE 2.5 MG IM (22:27)
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
--- NOTE | 2024-08-04 22:37 | PC.NURSE ---
syringe discarded prior to scan. discussed with VICENTE Martínez who advised to enter as given and unable to scan barcode
--- NOTE | 2024-08-04 22:54 | PC.NURSE ---
hospital bed acquired and bed alarm on
[2024-08-04 22:57] VITALS: BP 139/80; PULSE 68; RESP 15; O2SAT 95
[2024-08-04 23:12] VITALS: BP 135/76; PULSE 68; RESP 17; O2SAT 97
[2024-08-04] MEDS: OLANZapine 10 MG VIAL IM (23:57)
[2024-08-05] VITALS (9 sets, daily range): BP systolic 114–162; BP diastolic 65–84; PULSE 58–68; RESP 16–18; TEMP 36.1–37.7; O2SAT 92–96
--- NOTE | 2024-08-05 00:58 | PC.NURSE ---
shortly after hour of monitoring s/p med restraint, BP attempted again. pt became agitated once more. upon leaving room, pt laid back down, remaining in bed. MD klein
--- NOTE | 2024-08-05 01:38 | PC.NURSE ---
from 2356 to 56, pt remained in bed but continued to move extremities and fiddle with pulse ox. became quite agitated when attempting to apply BP cuff. discussed w MD Garcia, HR RR and SpO2 charted. from approx 0100 to 0120 patient lie on left side with eyes closed, remaining still. then bed alarm and VMT cam alerted, pt seen with leg over bedrail. assisted to toilet, large output of dark yellow urine. pt back in bed now in supine position. at 0143, pt remaining in bed calm with eyes closed and nonlabored respirations. bed alarm on and camera in place
--- NOTE | 2024-08-05 03:08 | PC.NURSE ---
at this time patient has brief episodes of restlessness but is now more redirectable, not attempting to strike this nurse. bed is flat, pt lying slightly on right side, eyes closed with nonlabored respirations
--- NOTE | 2024-08-05 06:10 | PC.NURSE ---
comes from the [facility] for FTT, AMS, step son cares for patient but has been gone for some time. pt not eating or getting out of bed at facility. hx dementia. sundowns per previous nurse. alert however confused, disoriented, speaks Urdu then switches to Slovak. pt has required medication restraint this shift for severe agitation, being uncooperative, disruptiveness, not able to redirect. as night continued, patient has become more redirectable with a few brief episodes of restlessness. now in bed supine with eyes closed, nonlabored breathing, appears to be asleep. pt pulled [employer], tele, iv. able to stand and pivot with heavy assist to commode. had large unmeasured urine output.
[2024-08-05] MEDS: Divalproex Sodium Sprinkles 125 MG CAP.DR.SPR PO (09:23)
[2024-08-05] MEDS: Metoprolol Succinate ER 25 MG TAB.ER.24H PO (09:23)
--- NOTE | 2024-08-05 09:29 | PC.NURSE ---
Pt resting, calm and cooperative. RR even and unlabored, denies SOB or CP. Denies any pain. Pt tolerated PO meds well.
--- NOTE | 2024-08-05 10:52 | MHC.CM.ED ---
Patient remains in ER overflow. Physical therapy eval completed. Short term rehab is recommended. Does not appear patient has been inpatient in any facility in the past 30 days. Attempted to return telephone call to patient's son/2nd HCP, Nj, via telephone at [phone]. Left message requesting return telephone call. Received notification patient's daughter, Taylor, requesting return telephone call. Her telephone number is [phone]. Taylor's name is not listed as contact on patient's medical record. Will wait to speak to Nj before speaking to Taylor. Continue to monitor for d/c needs.
--- NOTE | 2024-08-05 11:30 | PC.NURSE ---
Family at bedside, pt sat up and now awake. Family requested to speak to Case management. Case management notified and stated they stop by. Foodtray for lunch ordered. Pt provided with saltines and josee crackers with cranberry juice, encouraged to eat.
--- NOTE | 2024-08-05 12:01 | MHC.CM.ED ---
Received return telephone call from Nj. Nj reports he is patient' son-in-law. Nj's , Abby, is patient's daughter and 1st HCP. Nj verifies he is the 2nd. Taylor is another daughter of patient. At this time, received notification another daughter is bedside and requesting update. T/W requested who would be the point of contact between CM and family. Nj stated he would be point of contact. Nj will reach out to the rest of the family to explain all communication will be discussed between Nj and CM and Nj will then reach out to family. Per Nj, patient has been at [facility]. Nj feels patient's dementia has progressed and that [facility] is no longer able to safely care for patient. Physical therapy eval completed. Short term rehab is recommended. Patient has not been inpatient in any facility in the past 30 days. Medicare will not pay for STR. Patient has funds. Patient will need private pay LTC. Nj aware LTC placement has been difficult due to 4 facilities closing locally. Nj is aware placement [place] be [place] from [place] to [place]. Nj verbalizes understanding and has been asked to complete Medicaid Questionaire in advance. Nj will complete this form and return it to . Continue to monitor for d/c needs.
--- NOTE | 2024-08-05 14:30 | MHC.CM.ED ---
[facility] is able to offer a bed but it's in a 4 bed room. Multiple facilities are still reviewing. Spoke with Nj via telephone at [phone]. Nj is agreeable to placement in [facility]. Facility will reach out to family to arrange financials. Continue to monitor for d/c needs.
--- NOTE | 2024-08-05 15:24 | MHC.CM.ED ---
Patient will leave for [facility] tomorrow 08/06 at 11am. Teresa CANTOR booked. [facility] with chart. Patient, son-in-law Annamarie Mauro RN and Larissa HOLLOWAY aware. Continue to monitor for d/c needs.
--- NOTE | 2024-08-05 16:09 | PHA.MEDREC ---
Pharmacy Consult ? Medication Reconciliation Pharmacy has completed the medication reconciliation. List obtained from the [facility]
--- NOTE | 2024-08-05 17:14 | PM.PSYCN ---
History of Present Illness Chief Complaint: [facility] Medical History Lightheadedness Abdominal pain Helicobacter pylori (H. pylori) Osteoporosis On beta maria d at home Asthma COPD (chronic obstructive pulmonary disease) Hypercholesteremia HTN (hypertension) Positive FIT (fecal immunochemical test) Surgical History History of surgical removal of ganglion cyst Hx of hysterectomy Hx of bilateral cataract extraction Hx of colonoscopy Diagnostics Vital Signs (24Hr): Vital Signs - 24 hr 08/04/24 18:33 08/04/24 22:57 08/04/24 23:12 Temperature Pulse Rate 75 68 68 Respiratory Rate 20 15 17 Blood Pressure 153/83 H 139/80 135/76 Pulse Oximetry 99 95 97 Oxygen Delivery Method Room Air 08/05/24 09:21 08/05/24 09:23 08/05/24 10:21 Temperature 97 F Pulse Rate 58 60 60 Respiratory Rate 18 Blood Pressure 146/70 H Pulse Oximetry 96 Oxygen Delivery Method Room Air 08/05/24 13:38 08/05/24 15:56 Temperature 97.8 F 98.1 F Pulse Rate 60 68 Respiratory Rate 16 16 Blood Pressure 114/74 130/78 Pulse Oximetry 96 96 Oxygen Delivery Method Room Air Room Air BMI result Body Mass Index 14.1 Labs 08/04/24 11:15 08/04/24 11:15 Labs: Laboratory Results - last 48 hr 08/04/24 08/04/24 08/04/24 10:29 11:14 11:15 WBC 7.3 RBC 5.04 Hgb 13.7 Hct 42.4 MCV 84.1 MCH 27.2 MCHC 32.3 RDW 14.8 Plt Count 213 MPV 10.1 Immature Gran % (Auto) 0.3 Neut % (Auto) 74.6 H Lymph % (Auto) 16.9 L [place] % (Auto) 7.4 Eos % (Auto) 0.4 Baso % (Auto) 0.4 Lymph # (Auto) 1.2 [place] # (Auto) 0.5 Eos # (Auto) 0.0 Baso # (Auto) 0.0 Abs Immat Gran (auto) 0.02 Absolute Neuts (auto) 5.5 Absolute Nucleated RBC 0.000 Nucleated RBC % (auto) 0.0 VBG pH VBG pCO2 VBG pO2 VBG HCO3 VBG O2 Saturation VBG Base Excess Sodium 141 Potassium 3.2 L Chloride 102 Carbon Dioxide 31 H Anion Gap 11 L BUN 12 Creatinine 0.72 Estim Creat Clear Calc 34.8 Estimated GFR > 60 POC Glucose 91 Random Glucose 98 Lactic Acid 1.1 Calcium 8.0 L Magnesium 2.2 Total Bilirubin 0.3 AST 21 ALT < 6 Alkaline Phosphatase 81 Ammonia 22 Troponin I High Sens 8.8 B-Natriuretic Peptide 143 H Total Protein 5.2 L Albumin 2.7 L Lipase 10 Urine Color Yellow Urine Appearance Cloudy Urine pH 5.5 Ur Specific Rosine 1.025 Urine Protein 100 (2+) H Urine Glucose (UA) Negative Urine Ketones Trace Urine Blood Small (1+) H Urine Nitrite Negative Ur Leukocyte Esterase Negative Urine RBC 3-5 H Urine WBC 0-5 Ur Squamous Epith Cells 3-5 Calcium Oxalate Crystal Present Urine Bacteria None Seen Hyaline Casts 0-2 Urine Test NEGATIVE Influenza Type A (PCR) NEGATIVE Influenza Type B (PCR) NEGATIVE RSV RNA Qual (PCR) NEGATIVE SARS-CoV-2 RNA (RT-PCR) NEGATIVE 08/04/24 11:26 WBC RBC Hgb Hct MCV MCH MCHC RDW Plt Count MPV Immature Gran % (Auto) Neut % (Auto) Lymph % (Auto) [place] % (Auto) Eos % (Auto) Baso % (Auto) Lymph # (Auto) [place] # (Auto) Eos # (Auto) Baso # (Auto) Abs Immat Gran (auto) Absolute Neuts (auto) Absolute Nucleated RBC Nucleated RBC % (auto) VBG pH 7.48 H VBG pCO2 51 VBG pO2 35 VBG HCO3 38 H VBG O2 Saturation 56.0 VBG Base Excess 13.3 Sodium Potassium Chloride Carbon Dioxide Anion Gap BUN Creatinine Estim Creat Clear Calc Estimated GFR POC Glucose Random Glucose Lactic Acid Calcium Magnesium Total Bilirubin AST ALT Alkaline Phosphatase Ammonia Troponin I High Sens B-Natriuretic Peptide Total Protein Albumin Lipase Urine Color Urine Appearance Urine pH Ur Specific Rosine Urine Protein Urine Glucose (UA) Urine Ketones Urine Blood Urine Nitrite Ur Leukocyte Esterase Urine RBC Urine WBC Ur Squamous Epith Cells Calcium Oxalate Crystal Urine Bacteria Hyaline Casts Urine Test Influenza Type A (PCR) Influenza Type B (PCR) RSV RNA Qual (PCR) SARS-CoV-2 RNA (RT-PCR) Medications Medications Current Medications Atorvastatin Calcium (Atorvastatin Calcium 80 Mg Tablet) 80 mg PO BEDTIME [facility] Last Admin: 08/04/24 22:20 Dose: Not Given Divalproex Sodium (Divalproex Sodium Sprinkles 125 Mg ) 125 mg PO BID [facility] Last Admin: 08/05/24 09:23 Dose: 125 mg Escitalopram Oxalate (Escitalopram Oxalate 10 Mg Tablet) 10 mg PO DAILY [facility] Last Admin: 08/05/24 09:23 Dose: 10 mg Famotidine (Famotidine 20 Mg Tablet) 20 mg PO BEDTIME [facility] Last Admin: 08/04/24 22:20 Dose: Not Given Lorazepam (Lorazepam 0.5 Mg Tablet) 0.5 mg PO Q8H PRN PRN Reason: Anxiety Metoprolol Succinate (Metoprolol Succinate Er 25 Mg Tab.Er.24h) 25 mg PO DAILY [facility]; Protocol Last Admin: 08/05/24 09:23 Dose: 25 mg Olanzapine (Olanzapine 2.5 Mg Tablet) 2.5 mg PO BEDTIME [facility] Last Admin: 08/04/24 22:20 Dose: Not Given Trazodone HCl (Trazodone Hcl 50 Mg Tablet) 50 mg PO BEDTIME [facility] Last Admin: 08/04/24 22:20 Dose: Not Given Allergies Allergies Allergy/AdvReac Type Severity Reaction Status Date / Time amoxicillin (AMOXICILLIN) Allergy Intermediate ITCHY Verified 08/04/24 10:30 EYES/RASH codeine (CODEINE) Allergy Unknown RASH Verified 08/04/24 10:30 zocor Allergy Unknown muscle pain Uncoded 08/04/24 10:30 Assessment & Plan Total time managing care of this patient today ____ minutes.
--- NOTE | 2024-08-05 19:51 | PC.NURSE ---
Report received and care assumed at 1900. Since this RN's arrival on the unit the patient has been resting comfortably in the bed with eyes closed, respirations even and unlabored and without outward s/s of distress noted. The pt appears to have a camera facing towards the pt's bed as she is located directly near the door. RN will continue to monitor, bed exit alarm was put on
--- NOTE | 2024-08-05 22:12 | PC.NURSE ---
Pt was medicated per MAR with verbal redirection, meds were given whole with juice. When awake the pt is alert, oriented to self but otherwise disoriented and questioning whether or not she is experiencing any visual hallucinations as she is noted to point and reference a male who is not present. She offers no complaints at this time. she was tucked back into bed and is resting comfortably
--- NOTE | 2024-08-06 00:07 | PC.NURSE ---
PT noted to become restless and attempting to exit her bed. Pt was assisted up to bedside commode and was noted to be very unsteady and unsafe on her feet. Pt was a 1 assist to and from, repositioned back into the bed and appears to be more relaxed and less restless. DISTRIBUTOR CLEANER sat at bedside for a bried time to help ensure her comfort and ease her mind. The pt is inquiring about her grandmother at this time and noted to ramble on about things in different languages, she often switches between Albanian, Macedonian, and what staff believes to be Malaysian all within the same sentence.
[2024-08-06 02:00] VITALS: BP 111/60; PULSE 64; RESP 18; TEMP 36.3; O2SAT 93
[2024-08-06 04:00] VITALS: BP 108/71; PULSE 60; RESP 16; TEMP 36.2; O2SAT 93
[2024-08-06 07:57] VITALS: BP 139/70; PULSE 58; RESP 17; TEMP 36.6; O2SAT 95
[2024-08-06 09:22] VITALS: BP 137/70; PULSE 59; RESP 17; TEMP 36.3; O2SAT 92
[2024-08-06] MEDS: Metoprolol Succinate ER 25 MG TAB.ER.24H PO (09:34)
[2024-08-06 11:00] VITALS: BP 137/70; PULSE 59; RESP 17; TEMP 36.3; O2SAT 92
[2024-08-06 11:40] VITALS: BP 104/62; PULSE 82; RESP 17; TEMP 36.6; O2SAT 97
== END 2024-08-06 12:33 ==
PROVIDERS: Nurse Practitioner Family; Emergency Provider Emergency Medicine; PCP Internal Medicine
DX: R41.82 Altered mental status, unspecified (principal); R00.1 Bradycardia, unspecified; I44.7 Left bundle-branch block, unspecified; R26.81 Unsteadiness on feet; F03.90 Unspecified dementia, unspecified severity, without behavioral disturbance, psychotic disturbance, mood disturbance, and anxiety; I10 Essential (primary) hypertension; Z79.899 Other long term (current) drug therapy; Z03.818 Encounter for observation for suspected exposure to other biological agents ruled out
CPT/HCPCS: 0241U; 70450; 71045; 80053; 81001; 81025; 82140; 82803; 82947; 83605; 83690; 83735; 83880; 84484; 85025; 93005; 96360; 96372; 97161; 99285; J1200; J2359; J3360

== ENCOUNTER → 2024-08-04 10:21 | Outpatient (BNV) | payer MEDICARE, SELFPAY | PROVIDERS: Emergency Provider Emergency Medicine; Visit Provider Internal Medicine Cardiovascular Disease | DX: I44.7 Left bundle-branch block, unspecified (principal); R00.1 Bradycardia, unspecified | CPT/HCPCS: 93010 ==

== ENCOUNTER 2024-08-30 03:18 | Emergency (ER) | payer MEDICARE, SELFPAY ==
--- NOTE | ~2024-08-30 | XR_ITS ---
CLINICAL HISTORY: unreliable pt, reporting chest pain injury 1 view chest x-ray Comparison: 08/04/2024 Findings: There is interstitial consolidation, possible pneumonia or pulmonary edema. The exam is otherwise unchanged IMPRESSION: 1. Interstitial consolidation, differential considerations noted This document has been electronically signed by: Steve Maurice MD on 08/30/2024 06:56:43
[2024-08-30 03:21] VITALS: BP 106/72; BP 115/76; PULSE 55; PULSE 65; RESP 20; TEMP 36.3; O2SAT 100; O2SAT 99; BMI 14.2
--- NOTE | 2024-08-30 04:04 | ED.GENADULT ---
HPI - General Adult General Chief complaint: General Medical Stated complaint: COMBATIVE DUE TO DEMENTIA/SECTION 12 Time Seen by Provider: 08/30/24 04:00 History of Present Illness ED Provider: Dre Garcia MD HPI narrative: 83-year-old female with dementia sent for agitation and aggression at [facility]. No other recent medical or psychiatric information provided. Related Data Home Medications ?Medication ?Instructions ?Recorded ?Confirmed rosuvastatin 20 mg tablet 20 mg PO DAILY 05/22/20 08/05/24 lorazepam 0.5 mg tablet 0.5 mg PO DAILY anxiety 07/19/22 08/05/24 metoprolol succinate 25 mg 25 mg PO DAILY 01/17/24 08/04/24 tablet,extended release 24 hr divalproex 125 mg tablet,delayed 125 mg PO BID@1400,2100 08/04/24 08/05/24 release escitalopram oxalate 10 mg tablet 10 mg PO DAILY 08/04/24 08/04/24 olanzapine 2.5 mg tablet 2.5 mg PO DAILY@1800 08/04/24 08/05/24 trazodone 50 mg tablet 50 mg PO DAILY@1400 08/04/24 08/05/24 famotidine 20 mg tablet 20 mg PO DAILY 08/05/24 08/05/24 ipratropium 20 mcg-albuterol 100 1 puff inhalation QID 08/05/24 08/05/24 mcg/actuation mist for inhalation (Combivent Respimat) melatonin 3 mg tablet 6 mg PO BEDTIME 08/05/24 08/05/24 polyethylene glycol 3350 17 gram 17 g PO DAILY 08/05/24 08/05/24 oral powder packet (HealthyLax) quetiapine 25 mg tablet 50 mg PO DAILY@1930 08/05/24 08/05/24 sennosides 8.6 mg tablet (senna) 17.2 mg PO BEDTIME 08/05/24 08/05/24 trazodone 50 mg tablet 75 mg PO BEDTIME 08/05/24 08/05/24 Allergies Allergy/AdvReac Type Severity Reaction Status Date / Time amoxicillin (AMOXICILLIN) Allergy Intermediate ITCHY Verified 08/30/24 03:24 EYES/RASH codeine (CODEINE) Allergy Unknown RASH Verified 08/30/24 03:24 zocor Allergy Unknown muscle pain Uncoded 08/30/24 03:24 [facility] Past Medical History Medical History Lightheadedness Abdominal pain Helicobacter pylori (H. pylori) Osteoporosis On beta maria d at home Asthma COPD (chronic obstructive pulmonary disease) Hypercholesteremia HTN (hypertension) Positive FIT (fecal immunochemical test) Surgical History History of surgical removal of ganglion cyst Hx of hysterectomy Hx of bilateral cataract extraction Hx of colonoscopy Family History Family History Daughter Parkinson disease Breast cancer Brother Lung cancer Daughter Heart disease Social History Social History Household Members: Other Household Members Other:: Grandson: Balta Housing: House Do you presently have visiting nurse or other home services: No Alcohol intake: never Patient Tobacco Use Status: Never used Tobacco Tobacco use type: Cigarette Cigarette Packs Per Day: 0.5 Cigarettes Per Day: 10.0 Years Smoked: over 30 years e-Cigarette/Vaping Use: Never Used Second Hand Smoke Exposure: Yes Advance Directives Date on File: 05/29/24 service: No Physical Exam ED Exam Exam: EXAM: Gen: Alert, pleasantly demented no distress resting but easily arousable when I come in the room. Slightly confused offers no relevant history to the presentation Head: Atraumatic Eyes: Anicteric, Normal conjunctiva. ENT: Moist mucosa, no pallor. ? Neck: Supple. Skin: ?No observable rash or bruising on exposed or examined skin Respiratory: Breathing comfortably, No distress.Clear to auscultation bilaterally, symmetric chest expansion, No wheeze, rales, ronchi. Cardiovascular: Regular rate and rhythm. No murmurs or rub. Well perfused periphery, warm extremities. No edema. ? Abdominal: No focal tenderness. Soft, no objective distension. No palpable masses or obvious organomegaly. ?No guarding, no rebound tenderness or other peritoneal findings. : No flank tenderness. Neuro: Alert. Gross movement of all extremities intact. ? Psych: Calm. Cooperative. MSK: No grossly visible deformity. Vital signs: See flowsheet Vital Signs: Vital Signs - 24 hr 08/30/24 03:21 08/30/24 06:12 08/30/24 07:18 Temperature 97.3 F 97.6 F 97.6 F Pulse Rate 55 63 63 Respiratory Rate 20 16 16 Blood Pressure 115/76 127/57 L 127/57 L Pulse Oximetry 100 93 93 Oxygen Delivery Method Room Air Room Air Room Air BMI result Body Mass Index 14.2 Medical Decision Making Medical Decision Making MDM Narrative: Medical Decision Makin-year-old female demented from [facility] with transient and seemingly completely resolved combativeness and agitation. Unclear with the patient has prn behavioral medications or if this is particularly off baseline. Overnight staff day SNF reported no fall injury although the patient told the nurse that she fell and hit her chest I do not see any objective signs of injury on the chest wall nor is she tender. Chest x-ray performed with no acute traumatic findings. Patient calm for several hours of monitoring at the ED. Nursing staff called them to send her back and they were agreeable to this given the patient's lengthy observation period here Preliminary Favored Differential Diagnosis: Progressive dementia, transient delirium, among additional considered etiologies Testing Interpreted Independently: Not Applicable Radiology or Lab testing Results Reviewed: Not Applicable Consults: Not Applicable Independent Historians/External Chart Reviews: Not Applicable Social Determinants of Health Impacting MDM/Planning: Not Applicable Discharge Plan Discharge Clinical Impression: Acute delirium Patient Disposition: Home, Self-Care Instructions: Acute Delirium (ED) Additional Instructions: DISCHARGE DIAGNOSES: Patient was sent in for combative behavior. On arrival here the patient was resting comfortable and had no complaints other than reporting a fall and chest discomfort. She had no tenderness or instability of the chest wall or other signs of traumatic injury but a chest x-ray was done no acute traumatic injuries were identified on this HISTORY OF PRESENTATION: ?Combative at residential facility EMERGENCY DEPARTMENT COURSE,TESTS, TREATMENTS: While in the ED today comprehensive examination monitoring, chest x-ray. DISCHARGE MEDICATIONS: ?[We have made no changes to your regular medication regimen] FOLLOW-UP: ?Call your primary or general physician soon as possible to discuss your symptoms, your ED visit and to discuss follow up plans PCP and/or facility physician should evaluate this patient tomorrow for possible medication management INSTRUCTIONS ?& RETURN PRECAUTIONS: If any symptoms change first call your primary physician, if it is after-hours your primary doctors office should have a provider varying exceptionalities teacher you can speak with. If the symptoms are severe or very concerning to you then call 911 or return to the ED. Dre Garcia MD Emergency Physician [facility] Prescriptions: No Action trazodone 50 mg tablet 50 mg PO DAILY@1400 olanzapine 2.5 mg tablet 2.5 mg PO DAILY@1800 divalproex 125 mg tablet,delayed release (DR/EC) 125 mg PO BID@1400,2100 escitalopram oxalate 10 mg tablet 10 mg PO DAILY quetiapine 25 mg Tablet 50 mg PO DAILY@1930 sennosides [senna] 8.6 mg Tablet 17.2 mg PO BEDTIME trazodone 50 mg Tablet 75 mg PO BEDTIME polyethylene glycol 3350 [HealthyLax] 17 gram Powder In Packet 17 g PO DAILY melatonin 3 mg Tablet 6 mg PO BEDTIME famotidine 20 mg Tablet 20 mg PO DAILY Combivent Respimat 20-100 mcg/actuation Mist 1 puff INHALATION QID Rx Instructions: space evenly during waking hours rosuvastatin 20 mg tablet 20 mg PO DAILY lorazepam 0.5 mg tablet 0.5 mg PO DAILY metoprolol succinate 25 mg tablet extended release 24 hr 25 mg PO DAILY Interventions: ED Discharge Assessment Last Done: 08/30/24 07:18 Discharge Date/Time: 08/30/24 06:55 Print Language: Jacobo
--- NOTE | 2024-08-30 04:18 | PC.NURSE ---
pt changed into hospital attire, given warm blanker, notified Dr. donis pt report falling and back hurts, yellow socks on and fall risk bracelet placed.
--- NOTE | 2024-08-30 04:20 | PC.NURSE ---
fall sign placed.
--- NOTE | 2024-08-30 05:59 | PC.NURSE ---
pt sleeping no combative behaviors. pt awaiting EMS to back to the facility
--- NOTE | 2024-08-30 06:01 | PC.NURSE ---
Called and notified facility pt return back.
[2024-08-30 06:12] VITALS: BP 127/57; PULSE 63; RESP 16; TEMP 36.4; O2SAT 93
[2024-08-30 07:18] VITALS: BP 127/57; PULSE 63; RESP 16; TEMP 36.4; O2SAT 93
== END 2024-08-30 06:55 | disposition home or self-care (01) ==
PROVIDERS: Emergency Provider Emergency Medicine; PCP Internal Medicine
DX: R07.89 Other chest pain (principal); F05 Delirium due to known physiological condition; F03.911 Unspecified dementia, unspecified severity, with agitation; Z79.899 Other long term (current) drug therapy
CPT/HCPCS: 71045; 99283; 99284

== ENCOUNTER → 2024-08-30 04:31 | Outpatient (BNV) | payer MEDICARE, SELFPAY | PROVIDERS: Emergency Provider Emergency Medicine; PCP Internal Medicine; Visit Provider Specialist | DX: R07.9 Chest pain, unspecified (principal) | CPT/HCPCS: 71045 ==